=== PATIENT | female | born 1965 | race Caucasian/White ===

== ENCOUNTER 2022-06-28 15:13 | Emergency (ER) | payer OTHER, SELFPAY ==
[2022-06-28 15:16] VITALS: BP 150/60; PULSE 134; RESP 20; TEMP 37.9; O2SAT 93; BMI 51.1
--- NOTE | 2022-06-28 15:27 | CT_ITS ---
EXAM: CT ANGIOGRAPHY CHEST WITHOUT AND WITH INTRAVENOUS CONTRAST CLINICAL INDICATION: sob, + COVID TECHNIQUE: Helically acquired angiography images were obtained of the chest without and with intravenous contrast. This CT exam was performed using one or more of the following dose reduction techniques: automated exposure control, adjustment of the mA and/or kV according to patient size, and/or use of iterative reconstruction technique. This report was created using [employer] ([employer]) report generation technology. MIP reconstructed images were created and reviewed. CONTRAST: IV 100mL [id number]-[id number] RADIATION DOSE: CTDIvol = 23.97 mGy, DLP = 731.56 mGy-cm COMPARISON: None. FINDINGS: PULMONARY ARTERIES: Unremarkable. No demonstrated pulmonary embolism or arterial dissection. AORTA: There is atherosclerotic calcification of the aortic arch with tortuosity and elongation of the aortic arch and descending thoracic aorta. Normal in caliber. No evidence of dissection. GREAT VESSELS OF AORTIC ARCH: See above. LUNGS AND PLEURAL SPACES: Unremarkable. No mass. No consolidation or edema. No pleural effusion or thickening. No pneumothorax. HEART: Unremarkable. Heart size is normal. No pericardial effusion. No signs of right heart strain, ratio of right ventricle to left ventricle measures less than 1. MEDIASTINUM: Unremarkable. No mediastinal or hilar adenopathy. Esophagus is unremarkable. No hiatal hernia. THYROID: Unremarkable. No thyroid lesions. BONES/JOINTS: There are degenerative changes of the shoulders. There are multi-level degenerative changes of the thoracic spine. No suspicious lytic or blastic abnormality. ADRENALS: Left adrenal adenoma. CT/CTA Chest W/WO Contrast IMPRESSION: No demonstrated pulmonary embolism or arterial dissection. Electronically Signed: Marcelino Evans MD at 17:43 EST ,
--- NOTE | 2022-06-28 15:27 | EKG12_ITS ---
Test Reason : LEONID/NOEMY Blood Pressure : / mmHG Vent. Rate : 124 BPM Atrial Rate : 000 BPM P-R Int : 000 ms QRS Dur : 100 ms QT Int : 438 ms P-R-T Axes : 000 063 044 degrees QTc Int : 629 ms Sinus tachycardia Low voltage QRS Poor R wave progression Nonspecific ST and T wave abnormality Confirmed by RYAN NINA, ARACELIS ([id number]), video tape editor KELIN CHUNG ([id number]) on 06/30/2022 2:37:31 PM Referred By: Confirmed By:ARACELIS DAVIS MD
--- NOTE | 2022-06-28 15:28 | ED.VIS.DYS ---
HPI History of Present Illness Chief Complaint: Shortness of Breath Informant: patient Onset/Context/Timing Onset: Days (3 days) Context: gradual Timing: Intermittent Narrative Narrative: Patient presents secondary to increasing shortness of breath over the past 3 days. She states she will get intermittent times where she has a very hard time catching her breath. She denies chest pain. Yesterday she started feeling dizzy so she presents today for evaluation. She was noted to have a low-grade fever today but she did had not realize she been running a fever at home. She does not have significant cough. [facility] Medical History Body aches Chronic neck and back pain Hypertension Incontinence Knee pain Liver disease Shoulder pain Type 2 diabetes mellitus Home Medications metformin 500 mg tablet 500 mg PO BID 04/18/21 [History Last Taken Unknown] tizanidine 4 mg capsule 4 mg PO QHS PRN . 04/18/21 [History Last Taken Unknown] atorvastatin 20 mg tablet 20 mg PO DAILY 06/28/22 [History Last Taken Unknown] cholestyramine-aspartame 4 gram oral powder (Cholestyramine Light) 4 g PO TID 06/28/22 [History Last Taken Unknown] doxepin 10 mg capsule 10 mg PO QHS 06/28/22 [History Last Taken Unknown] duloxetine 60 mg capsule,delayed release (Cymbalta) 60 mg PO DAILY 06/28/22 [History Last Taken Unknown] glimepiride 1 mg tablet 1 mg PO DAILY 06/28/22 [History Last Taken Unknown] lisinopril 10 mg-hydrochlorothiazide 12.5 mg tablet 1 tab PO DAILY 06/28/22 [History Last Taken Unknown] nirmatrelvir 300 mg (150 mg x2)-ritonavir 100 mg tablet,dose pack(EUA) (Paxlovid) See Rx Instructions PO .COMPLEX #30 tabs 06/28/22 [Rx Last Taken Unknown] ursodiol 300 mg capsule 600 mg PO TID 06/28/22 [History Last Taken Unknown] Allergy/AdvReac Type Severity Reaction Status Date / Time codeine Allergy Mild unknown Verified 06/28/22 15:19 Surgical History History of hysterectomy Social History Smoking Status: Never smoker alcohol intake: never ROS ROS ED Constitutional Constitutional ED: Reports fever(s); Denies chills Eyes Eyes: Denies change in vision or discharge from eye(s) ENT ENT ED: Denies discharge from eye(s), rhinorrhea or sore throat Cardiovascular Cardiovascular: Denies chest pain Respiratory/Chest Respiratory/Chest: Reports cough and dyspnea Gastrointestinal Gastrointestinal: Denies abdominal pain, diarrhea, nausea or vomiting Genitourinary Genitourinary ED: Denies dysuria Musculoskeletal Musculoskeletal: Reports other Details: Left foot in walking boot x2 months. ; Denies back pain Integumentary Denies Abrasions or rash Neurologic Neurologic: Denies headache(s) or weakness Psychiatric Psychiatric: Denies anxiety or depression Allergic/Immunologic Allergic/Immunologic ED: Denies lip swelling or urticaria EXAM Physical Exam Const Vital Signs: 06/28/22 15:16 06/28/22 15:52 06/28/22 17:23 Temperature 100.3 F H Temperature Source Temporal Pulse Rate 134 H 74 Respiratory Rate 20 H 16 Respiratory Effort Normal Respiratory Depth Normal Respiratory Pattern Normal Blood Pressure 150/60 H 121/66 H Blood Pressure Mean 90 84 Pulse Ox 93 97 Oxygen Delivery Method Room Air Room Air Positive well nourished and well developed General Appearance ED: well developed HEENT Reports normocephalic and head/scalp atraumatic Eyes PERRL and EOMs intact bilaterally Neck supple Chest Wall inspection of chest normal and palpation of chest normal Resp normal respiratory effort and clear to auscultation bilaterally Cardio regular rhythm Rate: tachycardic GI normal to inspection, nondistended, normoactive bowel sounds Palpation: soft Back/Spine no CVA tenderness Extremity Extremity Narrative: Left foot in walking boot. Neuro oriented x3 and no sensory deficits noted Sensorium / Orientation: alert Psych Mood & Affect: anxious Skin no rashes or lesions noted MDM MDM MDM Narrative Medical decision making narrative: Patient was given ibuprofen for fever. Patient placed on media monitor. EKG obtained to evaluate for cardiac dysrhythmia. Lab work obtained to evaluate for leukocytosis, anemia, electrolyte derangement. Troponin obtained to evaluate for cardiac ischemia/injury. CTA of the chest obtained given her tachypnea, tachycardia, limited mobility with foot in walking boot to rule out blood clot. Swab for COVID and influenza obtained. Lab Data Attestation: I reviewed the patient's lab results. Labs: Laboratory Results - last 24 hr 06/28/22 06/28/22 15:31 15:31 WBC 10.0 RBC 4.59 Hgb 12.8 Hct 39.0 MCV 85.0 MCH 27.9 MCHC 32.8 RDW Std Deviation 44.8 H RDW Coeff of Kimberlee 14.6 Plt Count 295 MPV 9.6 Immature Gran % (Auto) 0.600 Neut % (Auto) 79.3 H Lymph % (Auto) 10.8 L [place] % (Auto) 7.8 Eos % (Auto) 1.0 Baso % (Auto) 0.5 Absolute Neuts (auto) 7.9 H Absolute Lymphs (auto) 1.08 Nucleated RBC % 0 Sodium 136 Potassium 3.9 Chloride 102 Carbon Dioxide 23.0 Anion Gap 11 BUN 11 Creatinine 1.06 H Estim Creat Clear Calc 49.96 Est GFR (MDRD) Af Amer 68 Est GFR (MDRD) Non-Af 57 L BUN/Creatinine Ratio 10.4 Glucose 185 H Calcium 9.2 Total Bilirubin 0.50 Direct Bilirubin 0.15 AST 41 H ALT 35 Alkaline Phosphatase 73 Troponin I High Sens 9 Total Protein 7.6 Albumin 3.4 Globulin 4.2 Radiography Diagnostic Testing: Clinical Impression(s) from Imaging Studies Chest CTA 06/28/22 15:27 IMPRESSION: No demonstrated pulmonary embolism or arterial dissection. Electronically Signed: Marcelino Evans MD at 17:43 EST Reading Location ID and State: [facility] / [place] , Service support , EKG Initial EKG: Attestation: I personally reviewed and interpreted this EKG as follows: Interpretation: Sinus Tachycardia (Sinus tach at 124 with no acute ischemia.) Differential Diagnosis Chest pain/SOB: pulmonary embolism Reason(s) PE less likely: Positive for not hypoxic and Other (Negative CTA chest), ACS ACS: Positive for no evidence of ACS based on cardiac biomarkers and EKG without ischemia, pneumothorax Reason(s) pneumothorax less likely: Positive for bilateral breath sounds and Other (No pneumothorax noted on CTA chest.) and pneumonia Reason(s) pneumonia less likely: Positive for no elevation in WBC count and other (No infiltrate noted on CTA chest.) Treatment and Re-Evaluation :: COVID test does return positive. Influenza is negative. CBC reveals normal white count. Chemistry studies reveal no acute abnormalities. Glucose is 185. LFTs normal. Troponin is normal at 9. EKG is sinus tachycardia with no acute ischemia. CTA of the chest reveals no evidence of infiltrate, fluid overload, PE, or dissection. At this time patient's heart rate is 109. O2 sats remained in the mid 90s. We discussed her COVID diagnosis and possibility of treatment with Paxlovid. She does agree to this. She knows that she needs to hold her statin while she is taking this medication. Return instructions provided. Discharge Plan Triage Chief Complaint: Shortness of Breath ED Provider: Gianna Hankins Dx/Rx/DC Orders Clinical Impression: COVID-19 Instructions: Coronavirus Disease 2019 (COVID-19): Overview, Coronavirus Disease 2019 (COVID-19): Caring for Yourself or Others Prescriptions: New Paxlovid (EUA) 300 mg (150 mg x 2)-100 mg tablets,dose pack See Rx Instructions .ROUTE .COMPLEX Qty: 30 0RF Rx Instructions: take TWO 150 mg tablets of nirmatrelvir with ONE 100 mg tablet of ritonavir twice daily for 5 days No Action metformin 500 mg tablet 500 mg PO BID tizanidine 4 mg capsule 4 mg PO QHS PRN (Reason: .) atorvastatin 20 mg tablet 20 mg PO DAILY doxepin 10 mg Capsule 10 mg PO QHS glimepiride 1 mg Tablet 1 mg PO DAILY ursodiol 300 mg Capsule 600 mg PO TID lisinopril-hydrochlorothiazide 10-12.5 mg Tablet 1 tab PO DAILY duloxetine [Cymbalta] 60 mg Capsule,Delayed Release(Dr/Ec) 60 mg PO DAILY Cholestyramine Light 4 gram Powder 4 g PO TID Rx Instructions: administer w/meal; avoid other meds within 1hr before or 4-6hr after dose Primary Care Provider: Freddy Pugh Referrals: Freddy Pugh MD [Primary Care Provider] - 1-2 Weeks Activity Restrictions/Additional Instructions: As discussed, please hold your atorvastatin while you are taking Paxlovid. Disposition Disposition: Home, Self Care
[2022-06-28] MEDS: Ibuprofen 600 MG Tablet PO (15:42)
[2022-06-28 15:43] LABS: Absolute Lymphocyte Count 1.08 X10^3/uL (0.83-4.51); Absolute Neutrophil Count 7.9 X10^3/uL (2.0-7.7); Basophil# 0.05 X10^3/uL; Basophil% 0.5 % (0-1); Hemoglobin 12.8 g/dL (12.0-15.0); Lymphocyte # 1.08 X10^3/ul (0.83-4.51); Lymphocyte % 10.8 % (19-41); Mean Corp Hgb Conc 32.8 g/dL (32-36); Mean Corpuscular Hgb 27.9 pg (27.0-32.0); Mean Platelet Vol. 9.6 fl (6.2-12.0); Monocyte# 0.78 X10^3/uL; Monocyte% 7.8 % (0-10); NRBC Flagged by Analyzer 0 % (0-5); Neutrophil # 7.89 X10^3/uL (2.7-7.7); Neutrophil % 79.3 % (47-70); Platelet Count 295 K/mm3 (150-450); RBC Distribution Width CV 14.6 % (11.6-14.6); RBC Distribution Width SD 44.8 fl (35.1-43.9); Red Blood Count 4.59 M/mm3 (4.2-5.4)
[2022-06-28 15:52] VITALS: O2SAT 96
[2022-06-28 16:02] LABS: AST(SGOT) 41 U/L (15-37); Alanine Aminotransfer ALT/SGPT 35 U/L (13-56); Albumin, Serum 3.4 g/dL (3.2-5.0); Alkaline Phosphatase 73 U/L (45-117); Anion Gap 11 (5-15); BUN 11 mg/dL (7-18); BUN/Creat Ratio 10.4 RATIO (10-20); Bilirubin, Direct 0.15 mg/dL (0.00-0.30); Calcium,Total 9.2 mg/dL (8.5-10.1); Chloride 102 mmol/L (98-107); Creatinine, Serum 1.06 mg/dL (0.55-1.02); EST Glomerular Filtration Rate 57 mL/min (>60); Est Glom Filt Rate - Afr Amer 68 mL/min (>60); Estimated Creatinine Clearance 49.96 ml/min; Globulin 4.2 g/dL (2.2-4.2); Glucose 185 mg/dL (74-106); Potassium 3.9 mmol/L (3.5-5.1); Protein, Total 7.6 g/dL (6.4-8.2); Sodium Level 136 mmol/L (136-145); Troponin-I HS 9 pg/mL (3.0-54.0)
[2022-06-28 17:23] VITALS: BP 121/66; PULSE 74; RESP 16; O2SAT 97
[2022-06-28 19:10] VITALS: RESP 110; O2SAT 94
== END 2022-06-28 19:11 | disposition home or self-care (01) ==
PROVIDERS: Emergency Provider Emergency Medicine; PCP Family Medicine; Visit Provider Emergency Medicine
DX: U07.1 COVID-19 (principal); E11.9 Type 2 diabetes mellitus without complications; I10 Essential (primary) hypertension; Z79.84 Long term (current) use of oral hypoglycemic drugs; Z79.899 Other long term (current) drug therapy
CPT/HCPCS: 71275; 80048; 80076; 84484; 85025; 87428; 93005; 99284; Q9967; A4216

== ENCOUNTER 2022-06-29 19:10 | Emergency (ER) | payer OTHER, SELFPAY ==
[2022-06-29 19:13] VITALS: BP 148/72; PULSE 117; RESP 18; TEMP 37.1; O2SAT 95
--- NOTE | 2022-06-29 19:31 | ED.VIS.DYS ---
HPI History of Present Illness Chief Complaint: Shortness of Breath Detail of Chief Complaint: Shortness of breath Informant: patient Narrative Narrative: Patient presents the emergency department complaint of feeling short of breath today. Patient tells me she was seen in the emergency department for same last evening and was diagnosed with COVID-19. Patient states that she also had a CTA of the chest which was negative for PE or dissection. Patient's had headaches off and on and fever today up to 103. She feels like she cannot get a good breath. Her O2 sat has not dropped down below 91% at home but she was concerned because it had not gotten over 95%. Patient was started on Paxlovid last evening. Patient states that her family made her come in and get evaluated. Patient was not sure if she was just freaking out. Patient has had the COVID-vaccine. She does have history of some anxiety and had been on Cymbalta but has not had it for the last 3 weeks. Patient was on it from pain management. [facility] Medical History Body aches Chronic neck and back pain Hypertension Incontinence Knee pain Liver disease Shoulder pain Type 2 diabetes mellitus Home Medications metformin 500 mg tablet 500 mg PO BID 04/18/21 [History Last Taken Unknown] tizanidine 4 mg capsule 4 mg PO QHS PRN . 04/18/21 [History Last Taken Unknown] atorvastatin 20 mg tablet 20 mg PO DAILY 06/28/22 [History Last Taken Unknown] cholestyramine-aspartame 4 gram oral powder (Cholestyramine Light) 4 g PO TID 06/28/22 [History Last Taken Unknown] doxepin 10 mg capsule 10 mg PO QHS 06/28/22 [History Last Taken Unknown] duloxetine 60 mg capsule,delayed release (Cymbalta) 60 mg PO DAILY 06/28/22 [History Last Taken Unknown] glimepiride 1 mg tablet 1 mg PO DAILY 06/28/22 [History Last Taken Unknown] lisinopril 10 mg-hydrochlorothiazide 12.5 mg tablet 1 tab PO DAILY 06/28/22 [History Last Taken Unknown] nirmatrelvir 300 mg (150 mg x2)-ritonavir 100 mg tablet,dose pack(EUA) (Paxlovid) See Rx Instructions PO .COMPLEX #30 tabs 06/28/22 [Rx Last Taken Unknown] ursodiol 300 mg capsule 600 mg PO TID 06/28/22 [History Last Taken Unknown] albuterol sulfate 90 mcg/actuation aerosol inhaler (ProAir HFA) 2 puff inhalation Q6H PRN shortness of breath or wheezing #6.7 grams 06/29/22 [Rx Last Taken Unknown] lorazepam 1 mg tablet (Ativan) 1 mg PO TID PRN anxiety #10 tabs 06/29/22 [Rx Last Taken Unknown] Allergy/AdvReac Type Severity Reaction Status Date / Time codeine Allergy Mild unknown Verified 06/29/22 19:17 Surgical History History of hysterectomy Social History Smoking Status: Never smoker alcohol intake: never ROS ROS ED Review of Systems ROS Unobtainable: other Constitutional Constitutional ED: Reports fever(s) and lethargy; Denies chills, sweats or weight loss Eyes Eyes: Denies blurry vision, change in vision or diplopia ENT ENT ED: Denies rhinorrhea or sore throat Cardiovascular Cardiovascular: Reports racing heartbeat; Denies chest pain or orthopnea Respiratory/Chest Respiratory/Chest: Reports cough, dyspnea and dyspnea on exertion; Denies orthopnea or sputum Gastrointestinal Gastrointestinal: Denies abdominal pain, diarrhea, nausea or vomiting Genitourinary Genitourinary ED: Denies dysuria, hematuria or urinary frequency Musculoskeletal Musculoskeletal: Reports myalgias; Denies arthralgias, back pain or neck pain Integumentary Denies abscess, Abrasions or rash Neurologic Neurologic: Denies headache(s) or weakness Psychiatric Psychiatric: Denies anxiety, depression or suicidal thoughts Endocrine Endocrinology: Denies polydipsia, polyphagia or polyuria Hematologic/Lymphatic Hematologic/Lymphatic: Denies easy bleeding, easy bruising or lymphadenopathy Allergic/Immunologic Allergic/Immunologic ED: Denies mouth swelling, tongue swelling or urticaria EXAM Physical Exam Const Vital Signs: 06/29/22 19:13 06/29/22 19:22 06/29/22 19:55 Temperature 98.8 F Temperature Source Oral Pulse Rate 117 H 107 H Respiratory Rate 18 18 Respiratory Effort Normal Non-Labored Respiratory Depth Normal Respiratory Pattern Normal Normal Blood Pressure 148/72 H Blood Pressure Mean 97 Pulse Ox 95 Oxygen Delivery Method Room Air Positive well nourished and well developed General Appearance ED: well developed and NAD HEENT Reports TM's clear and moist mucous membranes normocephalic and atraumatic; Negative for trauma or tenderness Tympanic Membrane ED: Yes TM's clear Eyes PERRL and EOMs intact bilaterally General Eye ED: Negative for pale conjunctiva or scleral icterus Neck no lymphadenopathy, supple and no JVD General: Negative for tenderness Chest Wall inspection of chest normal and palpation of chest normal Chest Narrative: Good aeration bilaterally. No accessory muscle use or retractions. No significant wheezing noted. No rales noted. Chest: Negative for tenderness Resp normal respiratory effort and clear to auscultation bilaterally Effort and Inspection: Negative for respiratory distress or pain with movement Auscultation: Negative for rhonchi, wheezes or diminished lung sounds Cardio regular rhythm, S1 normal heart sound, S2 normal heart sound and no murmurs; Negative for regular rate Rate: tachycardic Peripheral Pulses: pulses 2+ throughout GI normal to inspection, nondistended, normoactive bowel sounds, soft to palpation, non-tender, non-distended and no masses Back/Spine no CVA tenderness and no thoracic nor lumbar tenderness Extremity normal to inspection General Extremety ED: Negative for edema General Extremity: Negative for edema Neuro oriented x3, CN's II-XII intact bilaterally, no sensory deficits noted and gait normal Sensorium / Orientation: awake, alert, oriented to person, oriented to place and oriented to time Motor Exam: strength 5/5 throughout and strength abnormal Psych mental status grossly normal Skin no rashes or lesions noted and no wounds MDM MDM MDM Narrative Medical decision making narrative: Patient presents with dyspnea 1 day after being diagnosed with COVID-19 and having a CTA of her chest as well as cardiac work-up all of which were unremarkable. On arrival she is with an O2 sat of 95% on room air. Lung exams unremarkable. I did give her a DuoNeb aerosol to see if symptomatically this would help and really did not seem to make much difference. She did receive 1 mg of Ativan p.o. and this did seem to improve her symptomatology. I do suspect a component of anxiety. I do not feel any further work-up is indicated at this time. Patient will be discharged to home and instructed continue with her Paxlovid and she will monitor her O2 saturations at home. I will give her some as needed Ativan as needed for anxiety. Discharge Plan Triage Chief Complaint: Shortness of Breath ED Provider: Keiko Lyn Dx/Rx/DC Orders Clinical Impression: COVID-19, Anxiety, Acute dyspnea Instructions: Caring for Someone Who Has COVID-19, ED Anxiety Reaction, ED Dyspnea Prescriptions: New lorazepam [Ativan] 1 mg tablet 1 mg PO TID PRN (Reason: anxiety) Qty: 10 0RF albuterol sulfate [ProAir HFA] 90 mcg/actuation HFA aerosol inhaler 2 puff inhalation Q6H PRN (Reason: shortness of breath or wheezing) Qty: 6.7 0RF No Action metformin 500 mg tablet 500 mg PO BID tizanidine 4 mg capsule 4 mg PO QHS PRN (Reason: .) atorvastatin 20 mg tablet 20 mg PO DAILY doxepin 10 mg Capsule 10 mg PO QHS glimepiride 1 mg Tablet 1 mg PO DAILY ursodiol 300 mg Capsule 600 mg PO TID lisinopril-hydrochlorothiazide 10-12.5 mg Tablet 1 tab PO DAILY duloxetine [Cymbalta] 60 mg Capsule,Delayed Release(Dr/Ec) 60 mg PO DAILY Cholestyramine Light 4 gram Powder 4 g PO TID Rx Instructions: administer w/meal; avoid other meds within 1hr before or 4-6hr after dose Paxlovid (EUA) 300 mg (150 mg x 2)-100 mg tablets,dose pack See Rx Instructions .ROUTE .COMPLEX Qty: 30 0RF Rx Instructions: take TWO 150 mg tablets of nirmatrelvir with ONE 100 mg tablet of ritonavir twice daily for 5 days Primary Care Provider: Freddy Pugh Referrals: Freddy Pugh MD [Primary Care Provider] - Disposition Disposition: Home, Self Care
[2022-06-29] MEDS: LORazepam 1 MG Tablet PO (19:36)
[2022-06-29 19:55] VITALS: PULSE 107; RESP 18
[2022-06-29] MEDS: Ipratropium/Albuterol Sulfate 3 ML AMPUL.NEB INHALATION (19:55)
== END 2022-06-29 20:26 | disposition home or self-care (01) ==
PROVIDERS: Emergency Provider Emergency Medicine; PCP Family Medicine; Visit Provider Emergency Medicine
DX: U07.1 COVID-19 (principal); F41.9 Anxiety disorder, unspecified; R06.00 Dyspnea, unspecified
CPT/HCPCS: 94640; 99282

== ENCOUNTER 2023-06-05 16:20 | Emergency (ER) | payer BC, SELFPAY ==
[2023-06-05 16:21] VITALS: BP 143/70; PULSE 128; RESP 20; TEMP 39.6; O2SAT 92
--- NOTE | 2023-06-05 16:57 | EDS_ITS ---
<Statement entered by Gianna Hankins MD - 06/05/23 18:23> I have personally performed a face to face assessment of the patient and have reviewed the JIMMY Note. Patient presents secondary to cough and fever. She reports having a cough for the past 2 weeks and has developed fever and nausea over the past 24 hours. She went to urgent care where her temperature was reported to be 105 and she was sent to the emergency room. Patient sitting upright in bed no acute distress. She appears ill but is nontoxic appearing and is in no acute distress. Head and neck examination largely unremarkable. Heart is tachycardic and regular. Lung sounds are clear with good air movement throughout. Abdomen is soft and nontender. Patient given Tylenol and Zofran. Chest x-ray per my interpretation reveals chronic changes with no obvious large infiltrates. Radiology interpretation is reviewed and they do feel she has patchy bilateral infiltrates. Swab for COVID, influenza, and RSV is negative. Patient be treated with a course of doxycycline and return instructions given. HPI History of Present Illness Chief Complaint: Cough Narrative Narrative: 58-year-old female with PMH of HTN, HLD, DM2 states she has had a cough for few weeks but yesterday developed fever, chills, and nausea and vomiting. Today she is nauseated still. She went to urgent care and was told her temp was 105F and sent to the ED for evaluation. She has not taken any antipyretics since early this morning. She does not smoke. No chest pain or shortness of breath. Her whole family has had a cough for a couple weeks. [facility] Medical History Body aches Chronic neck and back pain Hypertension Incontinence Knee pain Liver disease Shoulder pain Type 2 diabetes mellitus Home Medications metformin 500 mg tablet 500 mg PO BID 04/18/21 [History Last Taken Unknown] tizanidine 4 mg capsule 4 mg PO QHS PRN . 04/18/21 [History Last Taken Unknown] atorvastatin 20 mg tablet 20 mg PO DAILY 06/28/22 [History Last Taken Unknown] cholestyramine-aspartame 4 gram oral powder (Cholestyramine Light) 4 g PO TID 0 06/28/22 [History Last Taken Unknown] doxepin 10 mg capsule 10 mg PO QHS 06/28/22 [History Last Taken Unknown] duloxetine 60 mg capsule,delayed release (Cymbalta) 60 mg PO DAILY 06/28/22 [History Last Taken Unknown] glimepiride 1 mg tablet 1 mg PO DAILY 06/28/22 [History Last Taken Unknown] lisinopril 10 mg-hydrochlorothiazide 12.5 mg tablet 1 tab PO DAILY 06/28/22 [History Last Taken Unknown] nirmatrelvir 300 mg (150 mg x2)-ritonavir 100 mg tablet,dose pack (Paxlovid) See Rx Instructions PO .COMPLEX #30 tabs 06/28/22 [Rx Last Taken Unknown] ursodiol 300 mg capsule 600 mg PO TID 06/28/22 [History Last Taken Unknown] albuterol sulfate 90 mcg/actuation aerosol inhaler (ProAir HFA) 2 puff inhalation Q6H PRN shortness of breath or wheezing #6.7 grams 06/29/22 [Rx Last Taken Unknown] lorazepam 1 mg tablet (Ativan) 1 mg PO TID PRN anxiety #10 tabs 06/29/22 [Rx Last Taken Unknown] doxycycline hyclate 100 mg tablet 100 mg PO BID 7 days #14 tabs 06/05/23 [Rx Last Taken Unknown] ondansetron 4 mg disintegrating tablet 4 mg PO Q6H PRN nausea and vomiting #12 tabs 06/05/23 [Rx Last Taken Unknown] Allergy/AdvReac Type Severity Reaction Status Date / Time codeine Allergy Mild unknown Verified 06/05/23 16:21 Surgical History History of hysterectomy Social History Smoking Status: Never smoker alcohol intake: never ROS ROS ED ROS Narrative Constitutional: Positive for fever, chills, malaise. CVS: Negative for chest pain. Respiratory: Positive for cough. Negative for shortness of breath. GI: Positive for nausea, vomiting. Negative for abdominal pain, nausea, vomiting. Neuro: Negative for headache. EXAM Physical Exam Narrative Exam Narrative: CONST: Patient sitting in no acute distress. EYES: Normal inspection. NECK: Normal inspection. RESP: No respiratory distress, CTAB. CVS: Tachycardic with regular rhythm, no murmur, no gallop. ABD: Soft and nontender, no guarding or rebound, nondistended. SKIN: Color normal, no rash, warm, dry, intact. EXTREMITIES: Normal appearance, no pedal edema. NEURO: Oriented x4. PSYCH: Normal affect. Const Vital Signs: 06/05/23 16:21 06/05/23 17:30 06/05/23 17:31 Temperature 103.2 F H Temperature Source Oral Pulse Rate 128 H 124 H Respiratory Rate 20 H 22 H Blood Pressure 143/70 H 126/68 H Blood Pressure Mean 94 87 Pulse Ox 92 91 Oxygen Delivery Method Room Air Room Air Room Air 06/05/23 17:36 Temperature 103.2 F H Temperature Source Oral Pulse Rate 124 H Respiratory Rate 22 H Blood Pressure 126/68 H Blood Pressure Mean 87 Pulse Ox 91 Oxygen Delivery Method Room Air MDM MDM MDM Narrative Medical decision making narrative: History gathered from: Patient and spouse Patient has had a few weeks of cough and more recent development of fever, chills, nausea and vomiting. She appears well and nontoxic. She is febrile at 103.2F, HR 128, otherwise normal vital signs. Other than tachycardia her exam is benign and lungs are clear to auscultation. Swab for COVID/flu/RSV is negative. CXR shows bilateral patchy infiltrates. With her symptoms she will be treated for pneumonia with doxycycline. First dose of antibiotic plus Tylenol and Motrin were given here. Fever and heart rate are coming down to 110. Patient comfortable discharge home and symptomatic care and return precautions were discussed. Differential: Viral syndrome, pneumonia Radiography Diagnostic Testing: Clinical Impression(s) from Imaging Studies Chest X-Ray 06/05/23 17:00 IMPRESSION: Patchy bilateral infiltrates of unknown chronicity. In the appropriate clinical setting findings may represent infection including atypical or viral pneumonia. Electronically Signed: Conrad Schumacher MD at 17:16 EST , ED attending interpretation of 2 view chest x-ray shows normal heart size and no evidence of large infiltrate. However radiology notes patchy bilateral infiltrates. Discharge Plan Triage Chief Complaint: Cough ED Midlevel Provider: Kinga Lawson ED Provider: Gianna Hankins Dx/Rx/DC Orders Clinical Impression: Pneumonia Instructions: ED Pneumonia (Adult) Prescriptions: New doxycycline hyclate 100 mg tablet 100 mg PO BID 7 Days Qty: 14 0RF ondansetron 4 mg tablet,disintegrating 4 mg PO Q6H PRN (Reason: nausea and vomiting) Qty: 12 0RF No Action metformin 500 mg tablet 500 mg PO BID tizanidine 4 mg capsule 4 mg PO QHS PRN (Reason: .) atorvastatin 20 mg tablet 20 mg PO DAILY doxepin 10 mg Capsule 10 mg PO QHS glimepiride 1 mg Tablet 1 mg PO DAILY ursodiol 300 mg Capsule 600 mg PO TID lisinopril-hydrochlorothiazide 10-12.5 mg Tablet 1 tab PO DAILY duloxetine [Cymbalta] 60 mg Capsule,Delayed Release(Dr/Ec) 60 mg PO DAILY Cholestyramine Light 4 gram Powder 4 g PO TID Rx Instructions: administer w/meal; avoid other meds within 1hr before or 4-6hr after dose Paxlovid 300 mg (150 mg x 2)-100 mg tablets,dose pack See Rx Instructions .ROUTE .COMPLEX Qty: 30 0RF Rx Instructions: take TWO 150 mg tablets of nirmatrelvir with ONE 100 mg tablet of ritonavir twice daily for 5 days lorazepam [Ativan] 1 mg tablet 1 mg PO TID PRN (Reason: anxiety) Qty: 10 0RF albuterol sulfate [ProAir HFA] 90 mcg/actuation HFA aerosol inhaler 2 puff inhalation Q6H PRN (Reason: shortness of breath or wheezing) Qty: 6.7 0RF Primary Care Provider: Freddy Pugh Referrals: Freddy Pugh MD [Primary Care Provider] - Activity Restrictions/Additional Instructions: Rest, drink fluids, take Tylenol every 6 hours as needed for fever and take the prescribed antibiotic for pneumonia
--- NOTE | 2023-06-05 17:00 | RAD_ITS ---
INDICATION: cough EXAMINATION/TECHNIQUE: X-RAY - XR Chest 2 Views COMPARISON: None. FINDINGS: LINES/DEVICES: None. LUNGS: Patchy bilateral airspace opacities without consolidation or pleural effusion. MEDIASTINUM AND CARDIOVASCULAR STRUCTURES: Cardiac silhouette not enlarged. Central airways and mediastinal contour are unremarkable. BONES AND SOFT TISSUES: No acute findings. RAD/Chest PA and Lateral IMPRESSION: Patchy bilateral infiltrates of unknown chronicity. In the appropriate clinical setting findings may represent infection including atypical or viral pneumonia. Electronically Signed: Conrad Schumacher MD at 17:16 EST ,
[2023-06-05] MEDS: Acetaminophen 500 MG Tablet 1000 MG PO (17:05)
[2023-06-05] MEDS: Ondansetron ODT 4 MG Tablet PO (17:05)
[2023-06-05] MEDS: Doxycycline 100 MG CAPSULE PO (17:28)
[2023-06-05 17:30] VITALS: O2SAT 92
[2023-06-05 17:31] VITALS: BP 126/68; PULSE 124; RESP 22; O2SAT 91
[2023-06-05 17:36] VITALS: BP 126/68; PULSE 124; RESP 22; TEMP 39.6; O2SAT 91
[2023-06-05] MEDS: Ibuprofen 600 MG Tablet PO (17:40)
--- OUTSIDE RECORDS SUMMARY | 2023-06-05 17:54 | XMS RPT_ITS | CCD ---
Author Name Unknown Address [address] [facility] [address] [place] [address] Organization [facility] Care Team Providers Care Naval Inspector Name Role Phone Margi Serrano MD Primary Care Provider MARGI SERRANO Referring Unavailable MARGI SERRANO Primary Care Unavailable PROVIDER, UNKNOWN Referring Unavailable MARGI SERRANO Primary Care Unavailable PROVIDER, UNKNOWN Referring Unavailable MARGI SERRANO Primary Care Unavailable Margi Serrano MD Primary Care Provider Margi Serrano MD Primary Care Provider [phone] LUIS DE LEON Referring Unavailable MARGI SERRANO Primary Care Unavailable LUIS VELASQUEZ Attending Unavailable MARGI SERRANO Primary Care Unavailable CHERELLE, SHAHRIAR Attending Unavailable MARGI SERRANO Primary Care Unavailable EXTEN, FELICE L Referring Unavailable CHERELLE, SHAHRIAR Attending Unavailable MARGI SERRANO Primary Care Unavailable EXTEN, FELICE L Referring Unavailable CHERELLE, SHAHRIAR Attending Unavailable MARGI SERRANO Primary Care Unavailable EXTEN, FELICE L Referring Unavailable CHERELLE, SHAHRIAR Attending Unavailable BRIGIDTAMARGI Haddad R Primary Care Unavailable EXTEN, FELICE L Referring Unavailable KONTAMARGI Haddad Primary Care Unavailable EXTEN, FELICE L Referring Unavailable CHERELLE, SHAHRIAR Attending Unavailable BRIGIDTAMARGI Haddad Primary Care Unavailable EXTEN, FELICE L Referring Unavailable CHERELLE, SHAHRIAR Attending Unavailable BRIGIDTAMARGI Haddad R Primary Care Unavailable EXTEN, FELICE L Referring Unavailable CHERELLE, SHAHRIAR Attending Unavailable BRIGIDTAMARGI Haddad R Primary Care Unavailable EXTEN, FELICE L Referring Unavailable KONTAK, MARGI R Primary Care Unavailable EXTEN, FELICE L Referring Unavailable CHERELLE, SHAHRIAR Attending Unavailable BRIGIDTAMARGI Haddad R Primary Care Unavailable EXTEN, FELICE L Referring Unavailable FAVORITE, ZULEYKA Attending Unavailable MARGI SERRANO R Primary Care Unavailable LUIS DE LEON Referring Unavailable BRIGIDTAKMARGI R Primary Care Unavailable FAVORITE, ZULEYKA Attending Unavailable BRIGIDTAKMARGI R Primary Care Unavailable KONTAK, MARGI R Primary Care Unavailable BRIGIDTAK, MARGI R Primary Care Unavailable BRIGIDTAMARGI Haddad R Primary Care Unavailable BRIGIDSHARLENEKMARGI R Attending Unavailable BRIGIDTAK, MARGI R Primary Care Unavailable FAVORITE, ZULEYKA Referring Unavailable BRIGIDTAK, MARGI R Primary Care Unavailable Allergies Allergy Classification Reported Allergen(s) Allergy Type Date of Onset Reaction(s) Facility (20 sources) Aspirin / oxyCODONE Hydrochloride / oxyCODONE terephthalate; Translations: [OXYCODONE [id number]] Drug Allergy 0 Vomiting [facility] Work Phone: (20 sources) Codeine; Translations: [CODEINE] Drug Allergy 0 Other: See Comments [facility] (20 sources) Niacin; Translations: [NIACIN] Drug Allergy 1 Intolerance [facility] Work Phone: Medications Current Medications Medication Drug Class(es) Dates Sig (Normalized) Sig (Original) CPAP/BIPAP/OTHER (20 sources) Start: 01-15-2022 End: 06-01-2049 CPAP/BIPAP/OTHER Type .CPAPSettings into a note to see current settings/supplies/DM E information. 1 Each 0 01/15/2022 06/01/2049 Active Completed/Discontinued Medications Medication Drug Class(es) Dates Sig (Normalized) Sig (Original) atorvastatin 20 mg oral tablet (20 sources) HMG-CoA Reductase Inhibitor Start: 04-17-2023 take 1 tablet by mouth once daily atorvastatin (LIPITOR) 20 mg tablet Indications: Mixed hyperlipidemia Take 1 tablet by mouth once daily. 90 tablet 0 04/17/2023 Active Problems Active Problems Problem Classification Problem Date Documented Date Episodic/Chronic Cardiac dysrhythmias (1 source) Tachycardia; Translations: [Tachycardia, unspecified] Episodic Diabetes mellitus without complication (20 sources) Type 2 diabetes mellitus without complication; Translations: [Type 2 diabetes mellitus without complications] Onset: 08-07-2011 Chronic Disorders of lipid metabolism (20 sources) Mixed hyperlipidemia; Translations: [Mixed hyperlipidemia] Onset: 09-18-2009 Chronic Essential hypertension (20 sources) Essential hypertension; Translations: [Essential (primary) hypertension] Onset: 09-18-2009 Chronic Hepatitis (3 sources) Nonalcoholic steatohepatitis; Translations: [Nonalcoholic steatohepatitis (BELLE)] Onset: 01-09-2023 01-09-2023 Chronic Immunizations and screening for infectious disease (3 sources) Encounter for immunization; Translations: [Other specified conditions influencing health status] Episodic Joint disorders and dislocations; trauma-related (20 sources) Joint derangement; Translations: [Other internal derangements of unspecified knee] Onset: 02-25-2010 02-25-2010 Chronic Osteoarthritis (20 sources) Osteoarthritis; Translations: [Osteoarthrosis, unspecified whether generalized or localized, lower leg] Onset: 02-25-2010 02-25-2010 Chronic Other connective tissue disease (1 source) Pain of left heel; Translations: [Pain in left foot] Episodic Other infections; including parasitic (1 source) Personal history of other infectious and parasitic diseases; Translations: [History of COVID-19] Episodic Other liver diseases (20 sources) Primary biliary cholangitis; Translations: [Primary biliary cirrhosis] Onset: 11-22-2020 11-22-2020 Chronic Other liver diseases (20 sources) Chronic liver disease; Translations: [Liver disease, unspecified] Onset: 11-22-2020 11-22-2020 Chronic Other liver diseases (3 sources) Hepatic fibrosis; Translations: [Hepatic fibrosis] Onset: 12-09-2021 01-09-2023 Chronic Other liver diseases (1 source) Primary biliary cirrhosis; Translations: [Primary biliary cholangitis (HCC)] Onset: 11-22-2020 Chronic Other lower respiratory disease (1 source) Dyspnea; Translations: [Shortness of breath] Episodic Other nutritional; endocrine; and metabolic disorders (20 sources) Body mass index 40+ - severely obese; Translations: [Morbid (severe) obesity due to excess calories] Onset: 04-23-2017 04-23-2017 Chronic Other screening for suspected conditions (not mental disorders or infectious disease) (3 sources) Patient encounter status; Translations: [Encounter for screening mammogram for malignant neoplasm of breast] Episodic Residual codes; unclassified (20 sources) Obstructive sleep apnea syndrome; Translations: [Obstructive sleep apnea (adult) (pediatric)] Onset: 09-18-2009 03-23-2019 Chronic Residual codes; unclassified (1 source) Obstructive sleep apnea (adult) (pediatric); Translations: [SIA (obstructive sleep apnea)] Onset: 01-12-2022 Chronic Past or Other Problems Problem Classification Problem Date Documented Da te Episodic/Chronic Other connective tissue disease (20 sources) Left achilles tendonitis; Translations: [Achilles tendinitis, left leg] Onset: 05-08-2022 Episodic Spondylosis; intervertebral disc disorders; other back problems (20 sources) Low back pain co-occurrent with neuralgia of left sciatic nerve; Translations: [Lumbago with sciatica, left side] Onset: 02-03-2015 02-03-2015 Episodic Results Test Name Value Interpretation Reference Range Facil ity Vital Signs Date Time Vital Sign Value Performing Clinician Zenaida galeana 07-23-2022 09:14-0400 Body weight 128.82 kg Luis Velasquez APRN.WORKERS COMPENSATION COORDINATOR Work Phone: [facility] 07-23-2022 09:14-0400 Diastolic blood pressure 68 mm[Hg] Luis Velasquez APRN.WORKERS COMPENSATION COORDINATOR Work Phone: [facility] 07-23-2022 09:14-0400 Heart rate 91 /min Luis Velasquez APRN.WORKERS COMPENSATION COORDINATOR Work Phone: [facility] 07-23-2022 09:14-0400 Systolic blood pressure 136 mm[Hg] Luis Velasquez APRN.WORKERS COMPENSATION COORDINATOR Work Phone: [facility] 06-28-2022 14:17-0500 Heart rate 128 /min Whitney Mack PIE CUTTER.WORKERS COMPENSATION COORDINATOR Work Phone: [facility] 06-28-2022 14:17-0500 SaO2% (BldA) [Mass fraction] 94 % Whitney Mack PIE CUTTER.WORKERS COMPENSATION COORDINATOR Work Phone: [facility] 06-28-2022 14:08-0500 Body temperature 102.7 [degF] Whitney Mack PIE CUTTER.WORKERS COMPENSATION COORDINATOR Work Phone: [facility] 06-28-2022 14:08-0500 Body weight 147.87 kg Whitney Browneye PIE CUTTER.WORKERS COMPENSATION COORDINATOR Work Phone: [facility] 06-28-2022 14:08-0500 Diastolic blood pressure 59 mm[Hg] Whitney Browneye PIE CUTTER.WORKERS COMPENSATION COORDINATOR Work Phone: [facility] 06-28-2022 14:08-0500 Systolic blood pressure 131 mm[Hg] Whitney Browneye PIE CUTTER.WORKERS COMPENSATION COORDINATOR Work Phone: [facility] 04-30-2022 14:36-0500 Body temperature 99.19 [degF] Roni Ge MD Work Phone: [facility] 04-30-2022 14:36-0500 Body weight 133.81 kg Roni Ge MD Work Phone: [facility] 04-30-2022 14:36-0500 Diastolic blood pressure 58 mm[Hg] Roni Ge MD Work Phone: [facility] 04-30-2022 14:36-0500 Heart rate 113 /min Roni Ge MD Work Phone: [facility] 04-30-2022 14:36-0500 Respiratory rate 20 /min Roni Ge MD Work Phone: [facility] 04-30-2022 14:36-0500 SaO2% (BldA) [Mass fraction] 97 % Roni Ge MD Work Phone: [facility] 04-30-2022 14:36-0500 Systolic blood pressure 144 mm[Hg] Roni Ge MD Work Phone: [facility] 12-11-2021 16:47-0400 Body height 162.6 cm Margi Serrano MD Work Phone: [facility] 12-11-2021 16:47-0400 Body weight 131.54 kg Margi Serrano MD Work Phone: [facility] 12-11-2021 16:47-0400 Diastolic blood pressure 67 mm[Hg] Margi Serrano MD Work Phone: [facility] 12-11-2021 16:47-0400 Heart rate 101 /min Margi Serrano MD Work Phone: [facility] 12-11-2021 16:47-0400 SaO2% (BldA) [Mass fraction] 94 % Margi Serrano MD Work Phone: [facility] 12-11-2021 16:47-0400 Systolic blood pressure 143 mm[Hg] Margi Serrano MD Work Phone: [facility] Encounters Encounter Date Encounter Type Care Provider Facility Start: 06-02-2023 Refill Deepthi Motley PIE CUTTER.WORKERS COMPENSATION COORDINATOR Work Phone: Family Practice Procedures Date Procedure Procedure Detail Performing Clinician Start: 01-09-2023 Us abdominal real ti me w/image limited Luis De Leon MD Work Phone: Start: 07-03-2021 Adult depression scr eening assessment Luis Velasquez PIE CUTTER.WORKERS COMPENSATION COORDINATOR Work Phone: Start: 05-25-2020 Mammography Luis orozco PIE CUTTER.WORKERS COMPENSATION COORDINATOR Work Phone: Start: 05-11-2015 Colonoscopy Luis orozco PIE CUTTER.WORKERS COMPENSATION COORDINATOR Work Phone: Plan of Treatment Date Care Activity Detail Author Start: 07-04-2031 Urine microalbumin profile [facility] Start: 05-11-2025 Colonoscopy COLONOSCOPY [facility] Start: 05-11-2025 COLORECTAL CANCER SCREENING COLORECTAL CANCER SCREENING [facility] Start: 05-11-2025 Screening for malignant neoplasm of colon [facility] Start: 04-21-2024 Annual PCP Team Chronic Disease Visit Annual PCP Team Chronic Disease Visit [facility] Start: 04-21-2024 BP Controlled (<130/80) BP Controlled (<130/80) [facility] in Start: 04-21-2024 Diabetic foot examination Diabetic Foot Exam [facility] Start: 04-03-2024 BP Controlled (<130/80) BP Controlled (<130/80) [facility] Start: 04-03-2024 Hepatitis B surface antibody level LDL Cholesterol [facility] Start: 01-31-2024 BP Controlled (<130/80) BP Controlled (<130/80) [facility] Start: 10-03-2023 Hemoglobin A1c measurement HbA1C [facility] Start: 10-03-2023 Hemoglobin A1c/Hemoglobin.total in Blood HbA1C [facility] Start: 08-02-2023 BP CONTROLLED (<130/80) BP CONTROLLED (<130/80) [facility] Start: 07-24-2023 ANNUAL PCP TEAM CHRONIC DISEASE VISIT ANNUAL PCP TEAM CHRONIC DISEASE VISIT [facility] Start: 04-27-2023 Depression Assessment Depression Assessment [facility] Start: 03-13-2023 End: 06-12-2023 ALBUMIN/CREAT RATIO RND UR ALBUMIN/CREAT RATIO RND UR Lab Routine Controlled type 2 diabetes mellitus without complication, without long-term current use of insulin (HCC) Expected: 03/13/2023, Expires: 06/12/2023 [facility] Work Phone: Immunizations Immunization Date Immunization Notes Care Provider Leta kiran 02-21-2022 COVID-19 booster vaccine, age 12+ yr, bivalent (Appointedd) Luis Ghislaine PIE CUTTER.WORKERS COMPENSATION COORDINATOR Work Phone: [facility] 02-21-2022 influenza, injectabl e, quadrivalent, contains preservative Luis Ghislaine PIE CUTTER.WORKERS COMPENSATION COORDINATOR Work Phone: [facility] 02-21-2022 influenza virus vacc ine, unspecified formulation Luis Ghislaine PIE CUTTER.WORKERS COMPENSATION COORDINATOR Work Phone: [facility] 12-11-2021 pneumococcal Conjuga te, unspecified formulation Margi Serrano MD Work Phone: [facility] Work Phone: 12-11-2021 pneumococcal (PCV20) vaccine, 20 valent (PREVNAR 20) Margi Serrano MD Work Phone: [facility] 12-11-2021 zoster vaccine recombinant Margi Serrano MD Work Phone: [facility] 07-03-2021 tetanus and diphther ia toxoids, adsorbed, preservative free, for adult use (2 Lf of tetanus toxoid and 2 Lf of diphtheria toxoid) Luis Ghislaine PIE CUTTER.WORKERS COMPENSATION COORDINATOR Work Phone: [facility] 07-03-2021 zoster vaccine recombinant Luis Ghislaine PIE CUTTER.WORKERS COMPENSATION COORDINATOR Work Phone: [facility] 05-17-2021 COVID-19 vaccine, ag e 12+ yr (PFIZER-BIONTECH - PURPLE TOP) Luis Ghislaine PIE CUTTER.WORKERS COMPENSATION COORDINATOR Work Phone: [facility] 10-05-2020 hepatitis A vaccine, adult dosage Luis Ghislaine PIE CUTTER.WORKERS COMPENSATION COORDINATOR Work Phone: [facility] 10-05-2020 hepatitis B vaccine, adult dosage Luis Ghislaine PIE CUTTER.WORKERS COMPENSATION COORDINATOR Work Phone: [facility] 09-07-2020 COVID-19 vaccine, fu ll dose (MODERNA) Luis Ghislaine PIE CUTTER.WORKERS COMPENSATION COORDINATOR Work Phone: [facility] 08-10-2020 COVID-19 vaccine, fu ll dose (MODERNA) Luis Ghislaine PIE CUTTER.WORKERS COMPENSATION COORDINATOR Work Phone: [facility] 06-08-2020 hepatitis B vaccine, adult dosage Luis Ghislaine PIE CUTTER.WORKERS COMPENSATION COORDINATOR Work Phone: [facility] 05-04-2020 hepatitis A vaccine, adult dosage Luis Ghislaine PIE CUTTER.WORKERS COMPENSATION COORDINATOR Work Phone: [facility] 05-04-2020 hepatitis B vaccine, adult dosage Luis Ghislaine PIE CUTTER.WORKERS COMPENSATION COORDINATOR Work Phone: [facility] 05-04-2020 influenza, injectabl e, quadrivalent, contains preservative Luis Ghislaine PIE CUTTER.WORKERS COMPENSATION COORDINATOR Work Phone: [facility] 03-23-2019 influenza, injectabl e, quadrivalent, contains preservative Luis Ghislaine PIE CUTTER.WORKERS COMPENSATION COORDINATOR Work Phone: [facility] 03-19-2018 influenza, injectabl e, quadrivalent, contains preservative Luis Ghislaine PIE CUTTER.WORKERS COMPENSATION COORDINATOR Work Phone: [facility] 02-03-2015 influenza, injectabl e, quadrivalent, contains preservative Luis Velasquez APRN.WORKERS COMPENSATION COORDINATOR Work Phone: [facility] 02-03-2015 influenza, seasonal, injectable Luis Velasquez APRN.WORKERS COMPENSATION COORDINATOR Work Phone: [facility] 12-24-2011 pneumococcal polysaccharide vaccine, 23 valent Luis Velasquez APRN.WORKERS COMPENSATION COORDINATOR Work Phone: [facility] 02-11-2010 influenza virus vacc ine, unspecified formulation Luis Velasquez APRN.WORKERS COMPENSATION COORDINATOR Work Phone: [facility] 07-05-2008 tetanus toxoid, redu jessenia diphtheria toxoid, and acellular pertussis vaccine, adsorbed Luis Velasquez APRN.WORKERS COMPENSATION COORDINATOR Work Phone: [facility] Work Phone: Payers Date Payer Category Payer Private Health Insurance JERARDO FLORES [facility] [id number] 2020-Present [phone] [address] [place] [address] Open Access [id number] 2020 Private Health Insurance JERARDO FLORES OA [id number] 2020-Present [phone] [address] [place] [address] Open Access [id number] 2020 Private Health Insurance [id number] Social History Date Type Detail Facility Start: 02-06-2016 End: 12-11-2021 Tobacco smoking status NHIS Ex-smoker [facility] History of tobacco use Cigarette Smoker [facility] Start: 07-05-2021 End: 04-21-2023 Alcohol intake Current drinker of alcohol (finding) [facility] Start: 05-02-2020 History SDOH Alcohol Frequency 1 [facility] Start: 09-18-2009 History SDOH Alcohol Comment rarely [facility] Start: 05-02-2020 History SDOH Social Connections Phone 5 [facility] Start: 05-02-2020 History SDOH Social Connections Living 3 [facility] Start: 05-02-2020 History SDOH Financial 4 [facility] Start: 05-02-2020 History SDOH Transport Med 2 [facility] Start: 05-01-2020 Education 12 [facility] Start: 02-11-2010 End: 12-11-2021 Tobacco Comment Quit in 1996 [facility] Start: 1965 Sex Assigned At Not on file [facility] Start: 11-01-2021 End: 01-12-2022 Exposure to SARS-CoV-2 (event) Not sure [facility] History of tobacco use Current smoker [facility] Start: 02-06-2016 End: 12-11-2021 Tobacco use and exposure Smokeless tobacco non-user [facility] Start: 08-01-2022 End: 01-30-2023 History of Social function [facility] Work Phone: Start: 08-01-2022 End: 01-30-2023 Tobacco use panel [facility] Work Phone: Adult Depression Scr eening Assessment 0 [facility] Work Phone: Do you belong to any clubs or organizations such as mormonism groups, unions, fraternal or athletic groups, or school groups? Yes [facility] Are you now , , , , never or living with a partner? [facility] How often to you hav e a drink containing alcohol? Never [facility] How many standard dr inks containing alcohol do you have on a typical day? 1 or 2 [facility] How hard is it for y ou to pay for the very basics like food, housing, medical care, and heating Not very hard [facility] Do you feel stress - tense, restless, nervous, or anxious, or unable to sleep at night because your mind is troubled all the time - these days [OSQ] To some extent [facility] (I/We) worried wheth er (my/our) food would run out before (I/we) got money to buy more. Never true [facility] In the past 12 month s, was there a time when you were not able to pay the mortgage or rent on time? No [facility] Medical Equipment Procedure Code Equipment Code Equipment Origin al Text Equipment Identifier Dates Start: 03-19-2018 Clinical Notes 01-30-2010 to 06-02-2023 Telephone Encounter - Margi Serrano MD - 06/02/2023 3:39 PM ESTTelephone Encounter - Kinga Yoon LPN - 06/02/2023 3:22 PM ESTTelephone Encounter - Tika Morejon - 04/10/2023 3:16 PM EST Note Date & Type Note Facility 06-02-2023 Miscellaneous Notes The following approved medication requests have been transmitted electronically. Requested Prescriptions Signed Prescriptions Disp Refills DULoxetine (CYMBALTA) 60 mg capsule 30 capsule 5 Sig: take 1 capsule by mouth every day Authorizing Provider: MARGI SERRANO MD Pharmacy verified in [place] Patient has been identified by name and date of : Yes Patient aware RX will be sent to pharmacy. No need to notify patient. Pharmacy phones for refill(s): Requested Prescriptions Pending Prescriptions Disp Refills DULoxetine (CYMBALTA) 60 mg capsule [Pharmacy Med Name: DULoxetine HCl Oral Capsule Delayed Release Particles 60 MG] 30 capsule 0 Sig: take 1 capsule by mouth every day Date of last office visit : 04/21/2023 Date of next office visit : 10/21/2023 Last 2 Encounter Wt Readings: Date: Wt: 04/21/2023 127 kg (279 lb 15.8 oz) 01/30/2023 136.1 kg (300 lb) Not applicable Please advise. Kinga Yoon LPN documented in this encounter [facility] 05-13-2023 Note Patient Outreach (IN TMMN) AARONVALENTÍN ([id number]) 1965 F Date Time Provider Department 05/13/23 MARGI SERRANO During your visit today, we recorded the following information about you: Allergies As of Date: 05/13/2023 Noted Allergy Reaction CODEINE 09/18/2009 14 - Other: See Comments Comments: childhood NIASPAN (NIACIN) 04/04/2011 5 - Intolerance PERCODAN (OXYCODONE HCL-OXYCODONE*09/18/2009 11 - Vomiting Date Reviewed: 04/21/2023 Reviewed by: Saadia Rodriguez LPN - Fully Assessed Visit Diagnosis:Encounter for screening mammogram for breast cancer [Z12.31] Order(s):[facility] SCREENING [[id number]] Order #: [id number] FUTURE Prescriptions as of 05/18/2023 - Blood-Glucose Meter (ONETOUCH ULTRA2 METER) Check glucose daily and as needed. - Lancing Device with Lancets Check glucose daily and as needed. - metFORMIN (GLUCOPHAGE) 500 mg tablet Take 2 tablets by mouth two times a day with meals. - atorvastatin (LIPITOR) 20 mg tablet Take 1 tablet by mouth once daily. - DULoxetine (CYMBALTA) 60 mg capsule take 1 capsule by mouth every day - glimepiride (AMARYL) 1 mg tablet TAKE 1 TABLET BY MOUTH EVERY MORNING WITH BREAKFAST - lisinopril-hydroCHLOROthiazide (ZESTORETIC) 10-12.5 mg per tablet take 1 tablet by mouth once daily - doxepin capsule 10 mg Take 1 capsule by mouth daily at bedtime. - tiZANidine (ZANAFLEX) 4 mg tablet take 1 tablet by mouth twice a day if needed - ursodiol (ACTIGALL) 300 mg capsule take 2 capsules by mouth three times a day - CPAP/BIPAP/OTHER Type .CPAPSettings into a note to see current settings/supplies/DME information. - cholestyramine (QUESTRAN) 4 gram packet Take 1 Packet by mouth three times daily with meals. Take by mouth as directed. - Lancets lancets Test blood sugar(s) 1 times daily. Dx: Type 2 DM - Controlled E11.9 Insulin: No - CPAP autoPAP 10-20 cmH2O, mask, tubing, filters, heated humidity, lifetime supplies. Please fax 30 day compliance download to [phone] ([place]). Dx: SIA. Old machine broke. Meds Comments as of 02/03/2015: Patient currently using Plexus. Problem List As Of Date 05/13/2023 Noted Resolved Obstructive sleep apnea on CPAP [G47.33] 09/18/2009 Essential hypertension [I10] 09/18/2009 Mixed hyperlipidemia [E78.2] 09/18/2009 Pre-diabetes [R73.03] 01/30/2010 12/24/2011 Osteoarth NOS-l/leg [VNR5406] 02/25/2010 Other joint derangement, not elsewhere classifi*02/25/2010 Chondromalacia patella 04/16/2010 Diabetes mellitus type 2, controlled, without c*08/07/2011 Bilateral low back pain with left-sided sciatic*02/03/2015 Obesity, Class III, BMI >= 40 (morbid obesity) *04/23/2017 Primary biliary cholangitis (HCC) [K74.3] 11/22/2020 Chronic liver disease [K76.9] 11/22/2020 Tendonitis, Achilles, left [M76.62] 05/08/2022 Encounter Status:Closed by Cloud[employer], PRODUSER on 05/18/23 [facility] 04-21-2023 Note HNO ID: [id number] Author: Margi Serrano MD Service: ? Author Type: Physician Type: Progress Notes Filed: 04/21/2023 11:05 AM Note Text: CHIEF COMPLAINT Patient presents with: medication appt HISTORY OF PRESENT ILLNESS Valentín Walker is a 58 year old female who presents here today for medication review and refills. I last saw this patient on 02/21/2022. BELLE - Currently part of a clinical study - Currently managed on ursodial 300 mg capsule, 2 capsules TID - Continues to follow with GI Diabetes - Currently managed on glimepiride 1 mg tablet once daily with breakfast and metformin 500 mg tablet BID with meals - A1c is 7.5% as of 04/03/2023 - Has not been checking BS at home - Last 3 Encounter Wt Readings: Date: Wt: 04/21/2023 127 kg (279 lb 15.8 oz) 01/30/2023 136.1 kg (300 lb) 08/01/2022 128.8 kg (284 lb) Ears - Endorses a buzzing sound/tinnitus Back Pain - Stopped injections - States that the injections were beneficial in the beginning - Have not been as effective as of late Health Maintenance Due for Hep A Vaccine (3 of 3- Hep A Twinrix risk 3- dose series) Due for Diabetic Foot Exam Due for Dilated Retinal Exam Due for Influenza Vaccine Due for Covid-19 Vaccine (2022- season) Labs reviewed. Past medical history, appointments, medications, allergies reviewed. REVIEW OF SYSTEMS General: Feels well, +weight loss, no fevers or chills. HEENT: No sinus congestion, earache, sore throat. +tinnitus Cardiac: No chest pain, palpitations Resp: No cough, wheeze, shortness of breath GI: No reflux symptoms, food intolerance, bowel changes. : No urinary frequency, dysuria. MS: No pain or joint complaints. PAST MEDICAL HISTORY PAST MEDICAL HISTORY Diagnosis Date Diabetes (HCC) Eczema Mixed hyperlipidemia Hyperlipidemia BELLE (nonalcoholic steatohepatitis) Obstructive sleep apnea Primary biliary cholangitis (HCC) Snoring Unspecified essential hypertension Essential hypertension PHYSICAL EXAMINATION BP 129/76 Pulse 81 Ht 165.1 cm (5' 5 ) Wt 127 kg (279 lb 15.8 oz) SpO2 98% BMI 46.59 kg/m? General: Alert, well developed, well nourished, no distress, pleasant and cooperative. Morbidly obese. Heart: Regular rate and rhythm. Normal S1 and S2. No murmurs, rubs, or gallops. Lungs: Clear to auscultation bilaterally. No respiratory distress. No wheezes, rales, or rhonchi. Abdomen: Soft, non-tender, no distention. Extremities: Feet/ankles without edema, posterior tibial pulses full and symmetrical. Feet:Shoes and socks removed, normal distal pulses, sensitive to 10 gm monofilament, and Skin and naile appear normal (slightly callused skin. Data Reviewed Component Latest Ref Rng AND Units 04/03/2023 WBC 3.70 - 11.00 k/uL 6.99 RBC 3.90 - 5.20 m/uL 4.64 Hemoglobin 11.5 - 15.5 g/dL 12.9 Hematocrit 36.0 - 46.0 % 39.4 MCV 80.0 - 100.0 fL 84.9 MCH 26.0 - 34.0 pg 27.8 MCHC 30.5 - 36.0 g/dL 32.7 RDW-CV 11.5 - 15.0 % 14.5 Platelet Count 150 - 400 k/uL 251 MPV 9.0 - 12.7 fL 9.7 Absolute nRBC <0.01 k/uL <0.01 Glucose 74 - 99 mg/dL 162 (H) BUN 7 - 21 mg/dL 10 Creatinine 0.58 - 0.96 mg/dL 0.70 Sodium 136 - 144 mmol/L 139 Potassium 3.7 - 5.1 mmol/L 3.9 Chloride 97 - 105 mmol/L 103 CO2 22 - 30 mmol/L 22 Anion Gap 9 - 18 mmol/L 14 Calcium 8.5 - 10.2 mg/dL 9.5 eGFR >=60 mL/min/1.73mA? 100 Total Cholesterol, Nonfasting <200 mg/dL 120 Triglycerides, Nonfasting <150 mg/dL 190 (H) HDL Cholesterol, Nonfasting >39 mg/dL 24 (L) LDL Cholesterol, Nonfasting <100 mg/dL 58 Non HDL Cholesterol, Nonfasting <130 mg/dL 96 VLDL Cholesterol, Nonfasting <30 mg/dL 38 (H) Total Chol/HDL Ratio, Nonfasting <5.10 mg/dL 5.00 LDL/HDL Ratio, Nonfasting <2.54 mg/dL 2.42 Albumin 3.9 - 4.9 g/dL 3.9 Bilirubin, Total 0.2 - 1.3 mg/dL 0.5 Bilirubin, Conjug <0.2 mg/dL <0.2 Alkaline Phosphatase 34 - 123 U/L 79 AST 13 - 35 U/L 29 ALT 7 - 38 U/L 20 Protein, Total 6.3 - 8.0 g/dL 7.5 Hemoglobin A1C 4.3 - 5.6 % 7.5 (H) Estimated Average Glucose mg/dL 169 PT Sec 9.7 - 13.0 sec 11.0 PT INR 0.9 - 1.3 1.0 Uric Acid 2.5 - 6.6 mg/dL 8.6 (H) GGT 6 - 46 U/L 34 Insulin 3.0 - 25.0 mU/L 50.8 (H) Assessment/Plan (E11.9) Controlled type 2 diabetes mellitus without complication, without long-term current use of insulin (HCC) (primary encounter diagnosis) Comment: A1c is 7.5% as of 04/03/2023. Will increase metformin. Plan: Blood-Glucose Meter (ONETOUCH ULTRA2 METER), blood sugar diagnostic (ONETOUCH ULTRA TEST) test strip, Lancing Device with Lancets, Increase metFORMIN (GLUCOPHAGE) 500 mg tablet to 2 tablets BID with meals (I10) Essential hypertension Comment: Well controlled Plan: Continue current regimen (E78.2) Mixed hyperlipidemia Comment: Well managed on statin therapy Plan: Continue current regimen (E66.01) Obesity, Class III, BMI >= 40 (morbid obesity) E66.01 Comment: Pt has been able to lose weight. Has (more content not included)... [facility] 04-10-2023 Miscellaneous Notes Bethelhart sent Please inform patient that they are due for OV and assist in scheduling with PCP team. Thanks. Last appointment: 07/23/22 Next appointment: n/a Pharmacy verified in [place]. Refill(s) requested: Requested Prescriptions Pending Prescriptions Disp Refills DULoxetine (CYMBALTA) 60 mg capsule [Pharmacy Med Name: DULoxetine HCl Oral Capsule Delayed Release Particles 60 MG] 30 capsule 0 Sig: take 1 capsule by mouth every day glimepiride (AMARYL) 1 mg tablet [Pharmacy Med Name: Glimepiride Oral Tablet 1 MG] 30 tablet 0 Sig: TAKE 1 TABLET BY MOUTH EVERY MORNING WITH BREAKFAST Order(s) pended. Please advise. Amisha Trevino MA, PRICING CLERK documented in this encounter [facility] 04-07-2023 Miscellaneous Notes Pharmacy verified in [place] Patient has been identified by name and date of : Yes Patient aware RX will be sent to pharmacy. No need to notify patient. Pharmacy phones for refill(s): Requested Prescriptions Pending Prescriptions Disp Refills lisinopril-hydroCHLOROthiazide (ZESTORETIC) 10-12.5 mg per tablet [Pharmacy Med Name: LISINOPRIL-HCTZ 10-12.5 MG TAB] 90 tablet 0 Sig: take 1 tablet by mouth once daily Date of last office visit : 07/23/2022 Date of next office visit : Visit date not found Last 2 Encounter Wt Readings: Date: Wt: 01/30/2023 136.1 kg (300 lb) 08/01/2022 128.8 kg (284 lb) Blood Pressure: BUN (mg/dL) Date Value 04/03/2023 10 02/01/2021 9 Creatinine (mg/dL) Date Value 04/03/2023 0.70 02/01/2021 0.64 Sodium (mmol/L) Date Value 04/03/2023 139 02/01/2021 140 Potassium (mmol/L) Date Value 04/03/2023 3.9 02/01/2021 4.1 Last 1 Encounter BP Readings: Date: BP: 04/03/2023 129/68 Please advise. Kinga Yoon LPN documented in this encounter [facility] 04-06-2023 Miscellaneous Notes The following approved medication requests have been transmitted electronically. Requested Prescriptions Signed Prescriptions Disp Refills atorvastatin (LIPITOR) 20 mg tablet 90 tablet 0 Sig: take 1 tablet by mouth once daily Authorizing Provider: MARGI SERRANO MD Pharmacy verified in [place] Patient has been identified by name and date of : Yes Patient aware RX will be sent to pharmacy. No need to notify patient. Pharmacy phones for refill(s): Requested Prescriptions Pending Prescriptions Disp Refills atorvastatin (LIPITOR) 20 mg tablet [Pharmacy Med Name: ATORVASTATIN 20 MG TABLET] 90 tablet 0 Sig: take 1 tablet by mouth once daily Date of last office visit : 07/23/2022 Date of next office visit : Visit date not found Last 2 Encounter Wt Readings: Date: Wt: 01/30/2023 136.1 kg (300 lb) 08/01/2022 128.8 kg (284 lb) Cholesterol: Triglyceride (mg/dL) Date Value 02/12/2022 158 02/01/2021 147 Triglycerides, Nonfasting (mg/dL) Date Value 04/03/2023 190 HDL Cholesterol (mg/dL) Date Value 02/12/2022 31 02/01/2021 28 HDL Cholesterol, Nonfasting (mg/dL) Date Value 04/03/2023 24 LDL Cholesterol (mg/dL) Date Value 02/01/2021 68 LDL Cholesterol, Nonfasting (mg/dL) Date Value 04/03/2023 58 ALT (U/L) Date Value 04/03/2023 20 11/12/2020 26 Non HDL Cholesterol, Nonfasting (mg/dL) Date Value 04/03/2023 96 Non HDL Cholesterol (mg/dL) Date Value 02/12/2022 92 02/01/2021 97 Please advise. Kinga Yoon LPN documented in this encounter [facility] 04-03-2023 Note HNO ID: [id number] Author: KINGA VALDES RN Service: ? Author Type: Registered Nurse Type: Progress Notes Filed: 05/05/2023 14:45 Note Text: IRB# [id number] Nonalcoholic Fatty Liver Disease (NAFLD) Database 3 PI: Dr Dickinson Research Coordinator: Alec Sosa ext [phone] Visit #: [id number] Subject ID [id number] All Vital Signs will be found in Additional Documentation below Progress Notes in the Encounter CRU to pull tubes Time Point Procedures Comments/Signature Baseline/Follow-up Visit Subject continues to give consent for trial. Confirm Subject is fasting: Date: 04/02/23 Time: 1999 1.Height: 168.4 cm 2.Height: 168.4 cm (Within 1.3 cm) 1. Weight: 126.0 kg 2. Weight: 125.8 kg (Within .91 kg) 1. Waist: 142.9 cm 2. Waist: 143 cm 3. (Within 10.2 cm) 1. Hip: 144.4 cm 2. Hip: 144.6 cm (Within 10.2 cm) Vital Signs collected Time:08 Scan patient wristband for all VS Signature: Kinga Valdes RN Blood Draw Orders checked in [facility] and appropriate tubes set up for lab draw and Beaker labels printed and confirmed with coordinator Blood Draw Time: 09 Butterfly used in left antecubital area. Blood drawn with vacutainer and syringe as needed and labs drawn per protocol. Butterfly removed after blood draw and site secured with sterile gauze. Patient tolerated procedure well. Tubes possibly needed: Send to [facility] (1) 2.7ml NaCit (1) 3.5ml gold (2) 3ml lith hep PST (1) 2ml EDTA (1) 3ml EDTA (1) 4ml [facility] NaFlouride [facility] (1) 10ml EDTA (baseline visit only;get bar-coded tube from lab) (1) 10ml NaHep (4) 5ml gold SST Signature: Kinga Valdes RN Coordination Subject must remain NPO until after Fibroscan Fibroscan and questionnaires done by Alec Medication Review: done Study MD visit Signature: Kinga Valdes RN Discharge D/C patient home Signature: Kinga Valdes RN [facility] 03-13-2023 Miscellaneous Notes The following approved medication requests have been transmitted electronically. Requested Prescriptions Signed Prescriptions Disp Refills DULoxetine (CYMBALTA) 60 mg capsule 30 capsule 0 Sig: take 1 capsule by mouth every day Authorizing Provider: MARGI SERRANO MD Last appointment: 07/23/22 Next appointment: n/a Pharmacy verified in [place]. Refill(s) requested: Requested Prescriptions Pending Prescriptions Disp Refills DULoxetine (CYMBALTA) 60 mg capsule [Pharmacy Med Name: DULoxetine HCl Oral Capsule Delayed Release Particles 60 MG] 30 capsule 0 Sig: take 1 capsule by mouth every day Order(s) pended. Please advise. Sam Barcenas CMA documented in this encounter [facility] 03-13-2023 Miscellaneous Notes Due for lab/ follow up appt. 1 fill only Lab ordered (fasting blood and urine) Refill on 03/13/23 COMP METABOLIC PANEL LIPID PANEL BASIC HGB A1C ALBUMIN/CREAT RATIO RND UR . The following approved medication requests have been transmitted electronically. Requested Prescriptions Signed Prescriptions Disp Refills glimepiride (AMARYL) 1 mg tablet 30 tablet 0 Sig: TAKE 1 TABLET BY MOUTH IN THE MORNING WITH BREAKFAST Authorizing Provider: MARGI SERRANO MD Last appointment: 07/23/22 Next appointment: n/a Pharmacy verified in [place]. Refill(s) requested: Requested Prescriptions Pending Prescriptions Disp Refills glimepiride (AMARYL) 1 mg tablet [Pharmacy Med Name: Glimepiride Oral Tablet 1 MG] 30 tablet 0 Sig: TAKE 1 TABLET BY MOUTH IN THE MORNING WITH BREAKFAST Order(s) pended. Please advise. Sam Barcenas CMA documented in this encounter [facility] 03-02-2023 Miscellaneous Notes Pharmacy requesting refills as follows via ERAR: CALVIN: 07/23/22 NOV: not scheduled Requested Prescriptions Pending Prescriptions Disp Refills glimepiride (AMARYL) 1 mg tablet [Pharmacy Med Name: Glimepiride Oral Tablet 1 MG] 30 tablet 0 Sig: TAKE 1 TABLET BY MOUTH IN THE MORNING WITH BREAKFAST Please review and advise. Fernanda Grover documented in this encounter [facility] 02-23-2023 Miscellaneous Notes Pharmacy faxed requesting the following refill. Requested Prescriptions Pending Prescriptions Disp Refills doxepin capsule 10 mg 90 capsule 1 Sig: Take 1 capsule by mouth daily at bedtime. Patient's Last Office Visit: 01/30/2023 by Nora Patient Phone numbers: [phone] (home) Request is for script(s) to be escript to pharmacy. Anitha Choi Firepot Operator And Tender documented in this encounter [facility] 02-10-2023 Miscellaneous Notes Called the patient and left vm about NAFLD Database 3 study (IRB#[id number]). Requested the patient to call back at the given number. Alec Sosa Real Property Appraiser documented in this encounter [facility] 01-30-2023 Note HNO ID: [id number] Author: Zuleyka Craft APRN.WORKERS COMPENSATION COORDINATOR Service: ? Author Type: Nurse Practitioner Type: Progress Notes Filed: 01/31/2023 5:10 PM Note Text: ASSESSMENT AND PLAN: BELLE/PBC: -- stable; no new issues -- LFT's, imaging are stable -- unfortunately, no progress with wt loss -- continue ursodiol -- pt asking about bone density testing; will d/w Dr De Leon -- diarrhea may be a side effect of her urosodiol. Can continue to take imodium prn US stable; next labs and imaging in June 2023. -- US is ordered. HPI: Ms. Walker is a 58 year old female with hx SIA, BELLE/PBC, Type II DM, who presents for routine follow up of liver disease. Last seen by me 08/01/2022: ASSESSMENT AND PLAN BELLE/PBC -- has declined bariatric surgery; has not followed with foxing closer or made any progress in wt loss -- has number now to talk with bariatrics about newer wt loss medications; encouraged her to call -- next US due 12/2022> already ordered. 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 Med related -- does not seem excessive -- helped by prn imodium See also previous visit with Dr De Leon 07/05/21 TODAY: No new medical issues Has not talked with anyone yet about wt loss medications. C/o some pain which comes and goes; in right middle abdomen Occasional itching; takes some questran if she really needs it Still having some diarrhea Stopped the metformin which didn't make any difference. Taking glimepiride and now a lower dose of metformin. Bm's vary; usually 3-4 daily Rarely has nocturnal bm No bloody stools Consistency varies from watery to mushy. Will occasionally have a formed stool. The worst part is the urgency Still takes some imodium occasionally if she is going to be away from the house for awhile It helps with the urgency, but doesn't really take away the loose stool Denies bloating or nausea LFT's stable Last colonoscopy 2016; 10 year recall. Diverticulosis. Last EGD 2018: normal Review of Systems: PAIN ASSESSMENT: Negative for pain, history of chronic pain, or current treatment for a chronic pain condition. GENERAL: No weight loss, malaise or fevers. RESPIRATORY: Negative for cough, hemoptysis, wheezing, COPD, dyspnea or shortness of breath CARDIOVASCULAR: Negative for chest pain, leg swelling, hypertension, CHF or palpitations GI: See HPI : No history of dysuria, frequency or incontinence PSYCH: Negative for sleep disturbance, mood disorder and recent psychosocial stressors. NEURO: No history of headaches, syncope, paralysis, seizures or tremors The remainder of the review of systems is negative. Where do you currently reside? Independently Are you taking any blood thinners? No PHYSICAL EXAM: BP 119/65 Pulse 73 Resp 20 Ht 5' 5 (1.65m) Wt 300 lb (136.1kg) BMI 49.92 kg/(m2). General appearance: Morbidly obese, well appearing, alert, in no acute distress, and well-hydrated, well nourished Skin: Skin color, texture, turgor normal, no suspicious rashes or lesions Neck: Supple, no adenopathy; thyroid symmetric, normal size, no bruits Lungs: lungs clear to auscultation no wheezing or rhonchi Heart: RRR without murmur, gallop, or rubs. No ectopy Abdomen: Normal abdominal exam, Abdomen soft, non-tender. Bowel sounds normal. No masses, organomegaly Extremities: Extremities normal. No deformities, edema, or skin discoloration. Good capillary refill. Musculoskeletal: Spine range of motion normal. Muscular strength intact Peripheral pulses: Normal Neuro: Gait normal. Reflexes normal and symmetric. Sensation grossly intact. DATA: Diagnostic tests reviewed for today's visit: Most recent labs Most recent imaging Last colonoscopy 2016 Zuleyka Craft APRN.CNP January 30, 2023 9:35 AM [facility] 01-09-2023 Note HNO ID: [id number] Author: Aleyda Magana TECHNDAVONTE Service: ? Author Type: Technologist Type: Progress Notes Filed: 01/09/2023 9:34 AM Note Text: Radiology Service Progress Note PATIENT NAME: Valentín Walker DATE OF SERVICE: January 09, 2023 TIME: 9:34 AM PATIENT IDENTITY VERIFICATION COMPLETED USING TWO (2) IDENTIFIERS: Name and Date of confirmed by patient verbally. FALL SCREENING: Has the patient had 2 falls in the last year or 1 fall with injury or currently using an Ambulatory Assistive Device (Walker, Cane, Wheelchair, Crutches, etc.)? No PATIENT GENDER DATA: Female. status: : No status: NO. PATIENT RELEVANT IMPLANT DATA REVIEWED: Yes RADIOLOGY DEPARTMENT: Ultrasound PERIPHERAL IV DATA: Not applicable SIGNED BY: TECHNOLOGIST Mary January 09, 2023 9:34 AM [facility] 01-09-2023 History of Presen t illness Narrative Radiology Service Progress Note PATIENT NAME: Valentín Walker DATE OF SERVICE: January 09, 2023 TIME: 9:34 AM PATIENT IDENTITY VERIFICATION COMPLETED USING TWO (2) IDENTIFIERS: Name and Date of confirmed by patient verbally. FALL SCREENING: Has the patient had 2 falls in the last year or 1 fall with injury or currently using an Ambulatory Assistive Device (Walker, Cane, Wheelchair, Crutches, etc.)? No PATIENT GENDER DATA: Female. status: : No status: NO. PATIENT RELEVANT IMPLANT DATA REVIEWED: Yes RADIOLOGY DEPARTMENT: Ultrasound PERIPHERAL IV DATA: Not applicable SIGNED BY: TECHNOLOGIST Mary January 09, 2023 9:34 AM documented in this encounter [facility] 01-07-2023 Miscellaneous Notes The following approved medication requests have been transmitted electronically. Requested Prescriptions Signed Prescriptions Disp Refills tiZANidine (ZANAFLEX) 4 mg tablet 60 tablet 0 Sig: take 1 tablet by mouth twice a day if needed Authorizing Provider: MARGI SERRANO MD Pharmacy verified in [place] Patient has been identified by name and date of : Yes Patient aware RX will be sent to pharmacy. No need to notify patient. Pharmacy phones for refill(s): Requested Prescriptions Pending Prescriptions Disp Refills tiZANidine (ZANAFLEX) 4 mg tablet [Pharmacy Med Name: TIZANIDINE HCL 4 MG TABLET] 60 tablet 0 Sig: take 1 tablet by mouth twice a day if needed Date of last office visit : 07/23/2022 Date of next office visit : Visit date not found Last 2 Encounter Wt Readings: Date: Wt: 08/01/2022 128.8 kg (284 lb) 07/23/2022 128.8 kg (284 lb) Not applicable Please advise. Kinga Yoon LPN documented in this encounter [facility] 01-05-2023 Miscellaneous Notes Pharmacy verified in [place] Patient has been identified by name and date of : Yes Patient aware RX will be sent to pharmacy. No need to notify patient. Pharmacy phones for refill(s): Requested Prescriptions Pending Prescriptions Disp Refills atorvastatin (LIPITOR) 20 mg tablet [Pharmacy Med Name: ATORVASTATIN 20 MG TABLET] 90 tablet 0 Sig: take 1 tablet by mouth once daily lisinopril-hydroCHLOROthiazide (ZESTORETIC) 10-12.5 mg per tablet [Pharmacy Med Name: LISINOPRIL-HCTZ 10-12.5 MG TAB] 90 tablet 0 Sig: take 1 tablet by mouth once daily Date of last office visit : 07/23/2022 Date of next office visit : Visit date not found Last 2 Encounter Wt Readings: Date: Wt: 08/01/2022 128.8 kg (284 lb) 07/23/2022 128.8 kg (284 lb) Cholesterol: Triglyceride (mg/dL) Date Value 02/12/2022 158 02/01/2021 147 HDL Cholesterol (mg/dL) Date Value 02/12/2022 31 02/01/2021 28 LDL Cholesterol (mg/dL) Date Value 02/12/2022 60 02/01/2021 68 ALT (U/L) Date Value 08/08/2022 23 11/12/2020 26 Non HDL Cholesterol (mg/dL) Date Value 02/12/2022 92 02/01/2021 97 Blood Pressure: BUN (mg/dL) Date Value 02/12/2022 10 02/01/2021 9 Creatinine (mg/dL) Date Value 02/12/2022 0.71 02/01/2021 0.64 Sodium (mmol/L) Date Value 02/12/2022 136 02/01/2021 140 Potassium (mmol/L) Date Value 02/12/2022 4.3 02/01/2021 4.1 Last 1 Encounter BP Readings: Date: BP: 08/01/2022 121/72 Please advise. Kinga Yoon LPN documented in this encounter [facility] 12-27-2022 Miscellaneous Notes Patient requesting refills as follow: Last prescribed : 11/03/22 Last OV: 07/23/22 Next OV: none Requested Prescriptions Pending Prescriptions Disp Refills DULoxetine (CYMBALTA) 60 mg capsule [Pharmacy Med Name: DULOXETINE HCL DR 60 MG CAP] 30 capsule 1 Sig: take 1 capsule by mouth once daily Please review and advise. Ashley Gresham Ma documented in this encounter [facility] 11-26-2022 Miscellaneous Notes Received orders for CPAP supplies (2 forms) from [facility]. Placed in provider's inbox for review. Route to [place] fax documented in this encounter [facility] 11-24-2022 Miscellaneous Notes Spoke with patient, OV for follow up scheduled 01/30/23 per patient preference. Claudia Shannon Ma Spoke with patient - number given to schedule US. She will schedule and then call back to set up follow up appointment with Zuleyka Craft. Claudia Shannon Ma Patient was sent letter today due to no contact back from patient to schedule follow up with Nora. Kelsi Hall Ma Called and left message for patient to call back to schedule follow up. Will need HFP and US done prior to appointment. Claudia Shannon Ma ----- Message from Claudia Shannon Ma sent at 08/01/2022 9:58 AM EDT ----- Regardin month follow up Return in about 6 months (around 01/31/2023). Check for US and labs prior to visit documented in this encounter [facility] 11-24-2022 Miscellaneous Notes Pharmacy faxed requesting the following refill. Requested Prescriptions Pending Prescriptions Disp Refills doxepin capsule 10 mg [Pharmacy Med Name: DOXEPIN 10 MG CAPSULE] 90 capsule 1 Sig: take 1 capsule by mouth at bedtime Patient's Last Office Visit: 08/01/2022 Patient Phone numbers: [phone] (home) Request is for script(s) to be escript to pharmacy. Anitha Choi Firepot Operator And Tender documented in this encounter [facility] 11-18-2022 Note HNO ID: [id number] Author: Shahriar Che PT Service: ? Author Type: Physical Therapist Type: Progress Notes Filed: 11/18/2022 9:15 AM Note Text: 11/18/2022 [facility] PHYSICAL THERAPY DISCONTINUANCE OF CARE Plan of Care Period: Start of Care Date: 05/08/22 Last Visit Date: 08/05/2022 Therapy Program: The following is a summary of the interventions provided for this episode of care; Therapeutic exercise, Manual therapy, Self-senior living management, and Patient/Family/Caregiver Education Assessment: The following is the goal status: Goals updated 08/05/2022 Goals for Episode of Care: created on 05/08/22 through 08/28/22 Loving in home exercise program. - Met so far Perform walking without pain. - Progressing, will continue Increase ROM of the L ankle to 16 degrees of DF for normal joint mechanics when walking in 8 weeks or less - Progressing slowly, will continue Pt will demo SL heel raise with 2/10 pain or less in 4 months or less for ease of walking - Not met, will continue Normal gait. - Progressing, will continue Patient Goals: Return to walking normally Based on the most recent progress report, patient was progressing as expected toward functional goals based on home exercise program compliance, pain levels, and documented subjective information on progress. Reason for Discontinuation of Care: Patient has not returned to therapy or scheduled additional follow-up appointments. Shahriar Che, PT [facility] 11-03-2022 Miscellaneous Notes Pharmacy verified in Epic Patient has been identified by name and date of : Yes Patient aware RX will be sent to pharmacy. No need to notify patient. Pharmacy phones for refill(s): Requested Prescriptions Pending Prescriptions Disp Refills DULoxetine (CYMBALTA) 60 mg capsule 30 capsule 1 Sig: Take 1 capsule by mouth once daily. Date of last office visit : 07/23/2022 Date of next office visit : Visit date not found Last 2 Encounter Wt Readings: Date: Wt: 08/01/2022 128.8 kg (284 lb) 07/23/2022 128.8 kg (284 lb) Not applicable Please advise. Kinga Yoon LPN documented in this encounter [facility] 09-08-2022 Miscellaneous Notes Pharmacy faxed requesting the following refill. Requested Prescriptions Pending Prescriptions Disp Refills ursodiol (ACTIGALL) 300 mg capsule [Pharmacy Med Name: URSODIOL 300 MG CAPSULE] 540 capsule 2 Sig: take 2 capsules by mouth three times a day Patient's Last Office Visit: 08/01/2022 Patient Phone numbers: [phone] (home) Request is for script(s) to be escript to pharmacy. Anitha Choi [employer]pot Operator [employer] Tender documented in this encounter [facility] 08-22-2022 Miscellaneous Notes The following approved medication requests have been transmitted electronically. Requested Prescriptions Signed Prescriptions Disp Refills DULoxetine (CYMBALTA) 60 mg capsule 30 capsule 1 Sig: take 1 capsule by mouth once daily Authorizing Provider: MARGI SERRANO MD Last appointment: 07/23/22 Next appointment: n/a Pharmacy verified in [place]. Refill(s) requested: Requested Prescriptions Pending Prescriptions Disp Refills DULoxetine (CYMBALTA) 60 mg capsule [Pharmacy Med Name: DULOXETINE HCL DR 60 MG CAP] 30 capsule 1 Sig: take 1 capsule by mouth once daily Order(s) pended. Please advise. Felipa Damico LPN documented in this encounter [facility] 08-05-2022 Note HNO ID: [id number] Author: Shahriar Che PT Service: ? Author Type: Physical Therapist Type: Progress Notes Filed: 08/05/2022 3:42 PM Note Text: Episode Visit Count: 12 Therapist That Will Accept/Oversee The Plan Of Care: Shahriar Che Start of Care Date: 05/08/22 Onset Date: 04/29/22 Patient Identified by Name and Date of : Yes REHABILITATION AND SPORTS THERAPY PHYSICAL THERAPY PROGRESS REPORT PLAN OF CARE UPDATE: Assessment: Valentín Walker demonstrates difficulty with walking, stair negotiation, and squatting and improvements in standing and walking. She has progressed toward goals. Patient continues to present with impairments in ADL's, gait, range of motion, and strength that interfere with . Current prognosis is Good due to: current objective clinical presentation, good overall health status . She will benefit from continued skilled therapy services to meet the updated goals for this plan of care as noted below. Goals updated 08/05/2022 Goals for Episode of Care: created on 05/08/22 through 08/28/22 Loving in home exercise program. - Met so far Perform walking without pain. - Progressing, will continue Increase ROM of the L ankle to 16 degrees of DF for normal joint mechanics when walking in 8 weeks or less - Progressing slowly, will continue Pt will demo SL heel raise with 2/10 pain or less in 4 months or less for ease of walking - Not met, will continue Normal gait. - Progressing, will continue Patient Goals: Return to walking normally Planned Interventions, Frequency, and Duration: 1x/week, 4 weeks Total Number of Visits Planned: 4 Patient to be seen for Therapeutic exercise (19677), Neuromuscular re-education (77292), Manual therapy (65451), Self-senior living management (70918), Gait Training (56063), Patient/Family/Caregiver Education PLAN FOR NEXT VISIT: Loading of achilles SUBJECTIVE: Patient Reason for Visit: The heel has not been to bad. Has an appointment 1 week from today with her physician. Walking mostly without the boot when in the house. Wants to wait to schedule more PT until she finds out when her physician says. Recovery time seems to be better after completing loading exercises on the L achilles. Pain: Pain Pain Level: 2 Pain Location: Heel - Left, Ankle - Left Post Treatment Pain Post Treatment Pain Level: (Not rated) Post Treatment Pain Location: Heel - Left PROMIS Scales T-scores: mean of general population = 50. 5 points is clinically meaningfully difference Percentiles provide an indication of how the patient's score ranks in relation to the general population. Higher percentile rankings indicate better function/quality of life. 50th percentile is the average of the general population and indicates half of respondents had a worse score. OBJECTIVE MEASURES WITH LEVEL OF FUNCTION: LE AROM L Ankle Dorsiflexion: 9 Degrees L Ankle Plantar Flexion: 55 Degrees L Ankle Inversion: 35 L Ankle Eversion: 15 LE Strength L Ankle Dorsiflexion (L4): 5/5 L Ankle Plantar Flexion: 4-/5 (Pain) L Ankle Inversion: 4/5 (pain) L Ankle Eversion: 4/5 (pain) Gait Gait Observation: Pt demonstrates decreased pratibha, WB, step length and heel strike when walking on the LLE but overall improvement is seen in the severity of that just states. Pt does have improved pratibha and decreased pain with ambulation when using a SPC on the R. TREATMENT: Therapeutic Exercise: 1: Objective measures taken 2: Bilat heel raise 50/50 3 x 10 3: Ankle ROM pf/df x 10 Skilled Intervention: Patient was educated in proper exercise technique and purpose for exercises. Correct performance of therapeutic exercises was facilitated with verbal and visual cuing. Manual Therapy: 1: STM thumb gliding down gastroc and soleus in supine with bolster under the knee Skilled Intervention: Manual skills to improve joint mobility, ROM, and decrease pain. Utilized anatomy knowledge of the therapist, and assessment of patient's response to intervention. Billing Therapeutic Exercise Treatment Minutes: 30 Manual TherapyTreatment Minutes: 9 Total Treatment Time Minutes (timed/untimed): 39 Shahriar Che PT [facility] 08-05-2022 History of Presen t illness Narrative Episode Visit Count: 12 Therapist That Will Accept/Oversee The Plan Of Care: Shahriar Che Start of Care Date: 05/08/22 Onset Date: 04/29/22 Patient Identified by Name and Date of : Yes REHABILITATION AND SPORTS THERAPY PHYSICAL THERAPY PROGRESS REPORT PLAN OF CARE UPDATE: Assessment: Valentín Walker demonstrates difficulty with walking, stair negotiation, and squatting and improvements in standing and walking. She has progressed toward goals. Patient continues to present with impairments in ADL's, gait, range of motion, and strength that interfere with . Current prognosis is Good due to: current objective clinical presentation, good overall health status . She will benefit from continued skilled therapy services to meet the updated goals for this plan of care as noted below. Goals updated 08/05/2022 Goals for Episode of Care: created on 05/08/22 through 08/28/22 Loving in home exercise program. - Met so far Perform walking without pain. - Progressing, will continue Increase ROM of the L ankle to 16 degrees of DF for normal joint mechanics when walking in 8 weeks or less - Progressing slowly, will continue Pt will demo SL heel raise with 2/10 pain or less in 4 months or less for ease of walking - Not met, will continue Normal gait. - Progressing, will continue Patient Goals: Return to walking normally Planned Interventions, Frequency, and Duration: 1x/week, 4 weeks Total Number of Visits Planned: 4 Patient to be seen for Therapeutic exercise (54019), Neuromuscular re-education (42890), Manual therapy (94613), Self-senior living management (20609), Gait Training (57737), Patient/Family/Caregiver Education PLAN FOR NEXT VISIT: Loading of achilles SUBJECTIVE: Patient Reason for Visit: The heel has not been to bad. Has an appointment 1 week from today with her physician. Walking mostly without the boot when in the house. Wants to wait to schedule more PT until she finds out when her physician says. Recovery time seems to be better after completing loading exercises on the L achilles. Pain: Pain Pain Level: 2 Pain Location: Heel - Left, Ankle - Left Post Treatment Pain Post Treatment Pain Level: (Not rated) Post Treatment Pain Location: Heel - Left PROMIS Scales T-scores: mean of general population = 50. 5 points is clinically meaningfully difference Percentiles provide an indication of how the patient's score ranks in relation to the general population. Higher percentile rankings indicate better function/quality of life. 50th percentile is the average of the general population and indicates half of respondents had a worse score. OBJECTIVE MEASURES WITH LEVEL OF FUNCTION: LE AROM L Ankle Dorsiflexion: 9 Degrees L Ankle Plantar Flexion: 55 Degrees L Ankle Inversion: 35 L Ankle Eversion: 15 LE Strength L Ankle Dorsiflexion (L4): 5/5 L Ankle Plantar Flexion: 4-/5 (Pain) L Ankle Inversion: 4/5 (pain) L Ankle Eversion: 4/5 (pain) Gait Gait Observation: Pt demonstrates decreased pratibha, WB, step length and heel strike when walking on the LLE but overall improvement is seen in the severity of that just states. Pt does have improved pratibha and decreased pain with ambulation when using a SPC on the R. TREATMENT: Therapeutic Exercise: 1: Objective measures taken 2: Bilat heel raise 50/50 3 x 10 3: Ankle ROM pf/df x 10 Skilled Intervention: Patient was educated in proper exercise technique and purpose for exercises. Correct performance of therapeutic exercises was facilitated with verbal and visual cuing. Manual Therapy: 1: STM thumb gliding down gastroc and soleus in supine with bolster under the knee Skilled Intervention: Manual skills to improve joint mobility, ROM, and decrease pain. Utilized anatomy knowledge of the therapist, and assessment of patient's response to intervention. Billing Therapeutic Exercise Treatment Minutes: 30 Manual TherapyTreatment Minutes: 9 Total Treatment Time Minutes (timed/untimed): 39 Shahriar Che PT documented in this encounter [facility] 08-01-2022 Note HNO ID: [id number] Author: Zuleyka Craft APRN.WORKERS COMPENSATION COORDINATOR Service: ? Author Type: Nurse Practitioner Type: Progress Notes Filed: 08/20/2022 1:17 PM Note Text: ASSESSMENT AND PLAN BELLE/PBC -- has declined bariatric surgery; has not followed with foxing closer or made any progress in wt loss -- has number now to talk with bariatrics about newer wt loss medications; encouraged her to call -- next US due 12/2022> already ordered. 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 Med related -- does not seem excessive -- helped by prn imodium -- contine ursodiol HPI: Ms. Walker is a 57 year old female who presents for follow up of BELLE/PBC. 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 This will progress. NAFLD is driving this>>>pbc. Follow with US q 6 months. Discussed cirrhosis is coming along with decompensation. BMI is the main issue now. BMI 50, discussed weight loss in office today. Discussed referral to bariatric surgery, how crucial weight loss is here. She declines this. She states she will contact a foxing closer she knows to help. Gave her a diet handout. Continue urosodiol for pbc component (biopsy done on treatment) See in 6 months with ultrasound again and labs. RUQ US 07/14/21: Enlarged fatty liver Cholelithiasis. CBD normal in caliber. Otherwise normal imaging of RUQ No recent LFT's: last checked 2020: normal EGD 03/31/2018: (Dr Dela Cruz, for variceal screening): normal Last colonoscopy 2015( Dr Murphy): diverticulosis. Recall in 10 years. TODAY: Achilles tendonitis; wearing left boot and says she might need surgery Had bad covid last month (second time): bad respiratory sx's, fever>> all resolved now Rare RUQ pain Diarrhea is my life My GP is changing my diabetic meds; decreasing the metformin>> new consult to bariatrics is placed Has had diarrhea every since starting ursodiol; 3 -4 times/day; sometimes liquid, sometimes soft. Takes imodium if she is going out to avoid accidents No black or bloody stools Itching off and on; has questran prn which helps Never talked to a foxing closer and not interested in surgery The nurse at her PCP's office gave her a number for a bariatric person to discuss new medications for weight loss; has not called yet; number is at [facility] Review of Systems: PAIN ASSESSMENT: Negative for pain, history of chronic pain, or current treatment for a chronic pain condition. GENERAL: No weight loss, malaise or fevers. RESPIRATORY: Negative for cough, hemoptysis, wheezing, COPD, dyspnea or shortness of breath CARDIOVASCULAR: Negative for chest pain, leg swelling, hypertension, CHF or palpitations GI: See HPI : No history of dysuria, frequency or incontinence PSYCH: Negative for sleep disturbance, mood disorder and recent psychosocial stressors. NEURO: No history of headaches, syncope, paralysis, seizures or tremors The remainder of the review of systems is negative. Where do you currently reside? Independently Are you taking any blood thinners? No PHYSICAL EXAM: BP 121/72 Pulse 94 Ht 5' 4.02 (1.63m) Wt 284 lb (128.8kg) BMI 48.72 kg/(m2). WAS WEIGHED LAST WEEK; NOT TODAY General appearance: well appearing, alert, in no acute distress, and well-hydrated, well nourished Skin: Skin color, texture, turgor normal Neck: Supple, no adenopathy Lungs: lungs clear to auscultation no wheezing or rhonchi Heart: RRR without murmur, gallop, or rubs. No ectopy Abdomen: Morbidly obese; Abdomen soft, non-tender. Bowel sounds normal. Extremities: Extremities normal. Wearing boot on LLE Musculoskeletal: Spine range of motion normal. Muscular strength intact Peripheral pulses: Not examined Neuro: Gait normal. Sensation grossly intact. DATA: Diagnostic tests reviewed for today's visit: Most recent labs 01/2022 Most recent imaging 2021 Remote EGD/colonoscopy reports Zuleyka Craft APRN.CNP August 01, 2022 9:30 AM [facility] 07-31-2022 Note HNO ID: [id number] Author: Shahriar Che PT Service: ? Author Type: Physical Therapist Type: Progress Notes Filed: 07/31/2022 5:49 PM Note Text: Episode Visit Count: 11 Therapist That Will Accept/Oversee The Plan Of Care: Shahriar Che Start of Care Date: 05/08/22 Onset Date: 04/29/22 Patient Identified by Name and Date of : Yes REHABILITATION AND SPORTS THERAPY PHYSICAL THERAPY TREATMENT NOTE ASSESSMENT: Valentín Walker tolerated the session with some pain with BLE heel raises. She demonstrated fair tolerance to MT over calf muscle. The patient will continue to benefit from ongoing skilled physical therapy to progress toward set goals and for reassessment by supervising therapist. PLAN FOR NEXT VISIT: POC update SUBJECTIVE: Patient Reason for Visit: Still wearing the boot out of the house. But not wearing the boot inside the house now. Swelling still ebs and flows. The heel raises are still sometimes painful. Pain: Pain Pain Level: 4 Pain Location: Heel - Left, Ankle - Left Post Treatment Pain Post Treatment Pain Location: Heel - Left OBJECTIVE MEASURES WITH LEVEL OF FUNCTION: Taught band of muscle at proximal, medial gastrocnemius TREATMENT: Therapeutic Exercise: 1: BLE heel raise 3 x 10 4: Ankle PF/DF x 10 reps 5: Ankel circles x 10 6: Ankle inv/ev x 10 Skilled Intervention: Patient was educated in proper exercise technique and purpose for exercises. Provided written instruction for home exercise program to facilitate proper performance and compliance. Manual Therapy: 1: Pt in R sidelying firm STM gliding along medial gastroc muscle belly push to tolerance Skilled Intervention: Manual skills to improve joint mobility, ROM, and decrease pain. Utilized anatomy knowledge of the therapist, and assessment of patient's response to intervention. Billing Therapeutic Exercise Treatment Minutes: 15 Manual TherapyTreatment Minutes: 15 Total Treatment Time Minutes (timed/untimed): 30 Shahriar Che PT [facility] 07-31-2022 History of Presen t illness Narrative Episode Visit Count: 11 Therapist That Will Accept/Oversee The Plan Of Care: Shahriar Che Start of Care Date: 05/08/22 Onset Date: 04/29/22 Patient Identified by Name and Date of : Yes REHABILITATION AND SPORTS THERAPY PHYSICAL THERAPY TREATMENT NOTE ASSESSMENT: Valentín Walker tolerated the session with some pain with BLE heel raises. She demonstrated fair tolerance to MT over calf muscle. The patient will continue to benefit from ongoing skilled physical therapy to progress toward set goals and for reassessment by supervising therapist. PLAN FOR NEXT VISIT: POC update SUBJECTIVE: Patient Reason for Visit: Still wearing the boot out of the house. But not wearing the boot inside the house now. Swelling still ebs and flows. The heel raises are still sometimes painful. Pain: Pain Pain Level: 4 Pain Location: Heel - Left, Ankle - Left Post Treatment Pain Post Treatment Pain Location: Heel - Left OBJECTIVE MEASURES WITH LEVEL OF FUNCTION: Taught band of muscle at proximal, medial gastrocnemius TREATMENT: Therapeutic Exercise: 1: BLE heel raise 3 x 10 4: Ankle PF/DF x 10 reps 5: Ankel circles x 10 6: Ankle inv/ev x 10 Skilled Intervention: Patient was educated in proper exercise technique and purpose for exercises. Provided written instruction for home exercise program to facilitate proper performance and compliance. Manual Therapy: 1: Pt in R sidelying firm STM gliding along medial gastroc muscle belly push to tolerance Skilled Intervention: Manual skills to improve joint mobility, ROM, and decrease pain. Utilized anatomy knowledge of the therapist, and assessment of patient's response to intervention. Billing Therapeutic Exercise Treatment Minutes: 15 Manual TherapyTreatment Minutes: 15 Total Treatment Time Minutes (timed/untimed): 30 Shahriar Che PT documented in this encounter [facility] 07-23-2022 Note HNO ID: [id number] Author: Luis Velasquez APRN.WORKERS COMPENSATION COORDINATOR Service: ? Author Type: Nurse Practitioner Type: Progress Notes Filed: 07/23/2022 11:07 AM Note Text: This note was created using [employer]. Subjective Valentín Walker is a 57 year old female. Patient here for ER follow-up from recent covid infection. She was seen in the ER twice for palpitations and breathing issues was told to follow up with PCP. ER doctor thought some of her symptoms might be related to anxiety as she had been out of the Cymbalta for a couple weeks. Patient reports some lingering nasal congestion, but no cough/SOB/wheezing and feeling much better. History of chronic low back pain and sciatica, managed by pain management with injections every 3 months and Cymbalta. She would like PCP to take over prescribing of Cymbalta. DMII: PCP started glimepiride at previous visit and she is tolerating well. Also taking metformin. Checks blood sugars less than once weekly or if she feels bad, usually fastings are 90-115. No signs of low blood sugars. Patient is not interested in weight loss surgery, but is open to medications that assist with weight loss. HTN: doesn't check BP's at home, didn't take her medication yet today. Review of Systems Constitutional: Negative for fever. HENT: Positive for congestion. Respiratory: Negative for cough, chest tightness, shortness of breath and wheezing. Cardiovascular: Negative for chest pain and palpitations. Gastrointestinal: Negative for abdominal pain. Allergic/Immunologic: Positive for immunocompromised state. Neurological: Negative for headaches. PAST MEDICAL HISTORY Diagnosis Date Diabetes (HCC) Eczema Mixed hyperlipidemia Hyperlipidemia Obstructive sleep apnea Snoring Unspecified essential hypertension Essential hypertension PAST SURGICAL HISTORY Procedure Laterality Date COLONOSCOPY 05/11/15 repeat in 10 years CONIZATION CERVIX W/WO DANDC RPR ELTRD EXC ~1999 TONSILLECTOMY PRIMARY/SECONDARY Tonsillectomy TOTAL ABDOMINAL HYSTERECT W/WO RMVL TUBE OVARY ~1999 Hysterectomy, [facility] Codeine, Niaspan [Niacin], and Percodan [Oxycodone Akw-Hcdhmcsof-Rmg] MEDICATIONS lisinopril-hydroCHLOROthiazide (PRINZIDE,ZESTORETIC) 10-12.5 mg per tablet take 1 tablet by mouth once daily atorvastatin (LIPITOR) 20 mg tablet take 1 tablet by mouth once daily DULoxetine (CYMBALTA) 60 mg capsule Take 1 capsule by mouth once daily. doxepin capsule 10 mg take 1 capsule by mouth at bedtime glimepiride (AMARYL) 1 mg tablet Take 1 tablet by mouth daily with breakfast. metFORMIN (GLUCOPHAGE) 500 mg tablet Take 1 tablet by mouth twice daily with meals. CPAP/BIPAP/OTHER Type .CPAPSettings into a note to see current settings/supplies/DME information. ursodiol (ACTIGALL) 300 mg capsule take 2 capsules by mouth three times a day tiZANidine (ZANAFLEX) 4 mg tablet Take 1 tablet by mouth twice daily as needed. cholestyramine (QUESTRAN) 4 gram packet Take 1 Packet by mouth three times daily with meals. Take by mouth as directed. (Patient taking differently: Take 1 Packet by mouth three times daily with meals. As needed) blood sugar diagnostic (BLOOD GLUCOSE TEST) test strip Test blood sugar(s) 1 times daily. Dx: Type 2 DM - Controlled E11.9 Insulin: No (Patient taking differently: Test blood sugar(s) 1 times daily. Dx: Type 2 DM - Controlled E11.9 Insulin: No) Lancets lancets Test blood sugar(s) 1 times daily. Dx: Type 2 DM - Controlled E11.9 Insulin: No (Patient taking differently: Test blood sugar(s) 1 times daily. Dx: Type 2 DM - Controlled E11.9 Insulin: No) Blood-Glucose Meter monitoring kit Glucose Meter of Choice - Kit - Dx: Type 2 DM - Controlled E11.9, no insulin (Patient taking differently: Glucose Meter of Choice - Kit - Dx: Type 2 DM - Controlled E11.9, no insulin) CPAP autoPAP 10-20 cmH2O, mask, tubing, filters, heated humidity, lifetime supplies. Please fax 30 day compliance download to [phone] ([place]). Dx: SIA. Old machine broke. COMPOUNDED PRESCRIPTION CPAP @ 13 cm of water with humidification. Mask (per patient preference) optional chin strap (if indicated) , filters, tubing, humidifier and lifetime supplies. Dx. SIA 327.23 FAMILY HISTORY Problem Relation Age of Onset Hypertension Father Lipids Father Arthritis Mother Hypertension Mother Lipids Mother Stroke Mother Asthma Sister Lipids Sister Psychiatry Sister Psychiatry Daughter depression Allergies Sister Colon Polyps No Family History Colon Cancer No Family History Social History Tobacco Use Smoking status: Former Types: Cigarettes Smokeless tobacco: Never Tobacco comments: Quit in 1996 Vaping Use Vaping Use: Never used Substance Use Topics Alcohol use: Yes Comment: rarely Drug use: No Objective BP 136/68 Pulse 91 Wt 128.8 kg (284 lb) BMI 48.72 kg/m? Physical Exam Vitals and nursing note reviewed. Constitutional (more content not included)... [facility] 07-23-2022 History of Presen t illness Narrative This note was created using [employer]. Subjective Valentín Walker is a 57 year old female. Patient here for ER follow-up from recent covid infection. She was seen in the ER twice for palpitations and breathing issues was told to follow up with PCP. ER doctor thought some of her symptoms might be related to anxiety as she had been out of the Cymbalta for a couple weeks. Patient reports some lingering nasal congestion, but no cough/SOB/wheezing and feeling much better. History of chronic low back pain and sciatica, managed by pain management with injections every 3 months and Cymbalta. She would like PCP to take over prescribing of Cymbalta. DMII: PCP started glimepiride at previous visit and she is tolerating well. Also taking metformin. Checks blood sugars less than once weekly or if she feels bad, usually fastings are 90-115. No signs of low blood sugars. Patient is not interested in weight loss surgery, but is open to medications that assist with weight loss. HTN: doesn't check BP's at home, didn't take her medication yet today. Review of Systems Constitutional: Negative for fever. HENT: Positive for congestion. Respiratory: Negative for cough, chest tightness, shortness of breath and wheezing. Cardiovascular: Negative for chest pain and palpitations. Gastrointestinal: Negative for abdominal pain. Allergic/Immunologic: Positive for immunocompromised state. Neurological: Negative for headaches. PAST MEDICAL HISTORY Diagnosis Date Diabetes (HCC) Eczema Mixed hyperlipidemia Hyperlipidemia Obstructive sleep apnea Snoring Unspecified essential hypertension Essential hypertension PAST SURGICAL HISTORY Procedure Laterality Date COLONOSCOPY 05/11/15 repeat in 10 years CONIZATION CERVIX W/WO D&C RPR ELTRD EXC ~1999 TONSILLECTOMY PRIMARY/SECONDARY <AGE 11 Tonsillectomy TOTAL ABDOMINAL HYSTERECT W/WO RMVL TUBE OVARY ~1999 Hysterectomy, [facility] Codeine, Niaspan [Niacin], and Percodan [Oxycodone [id number]] MEDICATIONS lisinopril-hydroCHLOROthiazide (PRINZIDE,ZESTORETIC) 10-12.5 mg per tablet take 1 tablet by mouth once daily atorvastatin (LIPITOR) 20 mg tablet take 1 tablet by mouth once daily DULoxetine (CYMBALTA) 60 mg capsule Take 1 capsule by mouth once daily. doxepin capsule 10 mg take 1 capsule by mouth at bedtime glimepiride (AMARYL) 1 mg tablet Take 1 tablet by mouth daily with breakfast. metFORMIN (GLUCOPHAGE) 500 mg tablet Take 1 tablet by mouth twice daily with meals. CPAP/BIPAP/OTHER Type .CPAPSettings into a note to see current settings/supplies/DME information. ursodiol (ACTIGALL) 300 mg capsule take 2 capsules by mouth three times a day tiZANidine (ZANAFLEX) 4 mg tablet Take 1 tablet by mouth twice daily as needed. cholestyramine (QUESTRAN) 4 gram packet Take 1 Packet by mouth three times daily with meals. Take by mouth as directed. (Patient taking differently: Take 1 Packet by mouth three times daily with meals. As needed) blood sugar diagnostic (BLOOD GLUCOSE TEST) test strip Test blood sugar(s) 1 times daily. Dx: Type 2 DM - Controlled E11.9 Insulin: No (Patient taking differently: Test blood sugar(s) 1 times daily. Dx: Type 2 DM - Controlled E11.9 Insulin: No) Lancets lancets Test blood sugar(s) 1 times daily. Dx: Type 2 DM - Controlled E11.9 Insulin: No (Patient taking differently: Test blood sugar(s) 1 times daily. Dx: Type 2 DM - Controlled E11.9 Insulin: No) Blood-Glucose Meter monitoring kit Glucose Meter of Choice - Kit - Dx: Type 2 DM - Controlled E11.9, no insulin (Patient taking differently: Glucose Meter of Choice - Kit - Dx: Type 2 DM - Controlled E11.9, no insulin) CPAP autoPAP 10-20 cmH2O, mask, tubing, filters, heated humidity, lifetime supplies. Please fax 30 day compliance download to [phone] ([place]). Dx: SIA. Old machine broke. COMPOUNDED PRESCRIPTION CPAP @ 13 cm of water with humidification. Mask (per patient preference) optional chin strap (if indicated) , filters, tubing, humidifier and lifetime supplies. Dx. SIA 327.23 FAMILY HISTORY Problem Relation Age of Onset Hypertension Father Lipids Father Arthritis Mother Hypertension Mother Lipids Mother Stroke Mother Asthma Sister Lipids Sister Psychiatry Sister Psychiatry Daughter depression Allergies Sister Colon Polyps No Family History Colon Cancer No Family History Social History Tobacco Use Smoking status: Former Types: Cigarettes Smokeless tobacco: Never Tobacco comments: Quit in 1996 Vaping Use Vaping Use: Never used Substance Use Topics Alcohol use: Yes Comment: rarely Drug use: No Objective BP 136/68 Pulse 91 Wt 128.8 kg (284 lb) BMI 48.72 kg/m Physical Exam Vitals and nursing note reviewed. Constitutional: Appearance: She is well-developed. She is not ill-appearing. Cardiovascular: Rate and Rhythm: Normal rate and regular rhythm. Heart sounds: Normal heart sounds. Pulmonary: Effort: Pulmonary effort is normal. Breath sounds: Normal breath sounds. Skin: General: Skin is warm and dry. Neurological: Mental Status: She is alert and oriented to person, place, and time. Assessment and Plan 1. Controlled type 2 diabetes mellitus without complication, without long-term current use of insulin (HCC) Improving, continue metformin and glimepiride. 2. Essential hypertension Usually well controlled, continue current medication and periodic monitoring. 3. Obesity, Class III, BMI >= 40 (morbid obesity) E66.01 Willing to discuss weight loss medications, dietitian consult, not in surgery at this time. - [facility]; Future 4. History of COVID-19 Symptoms mostly resolved. Follow up PRN for any new or worsening symptoms. 5. Chronic low back pain with left sided sciatica Controlled on Cymbalta, sees pain management for injections. Luis Velasquez APRN.BRANDAN documented in this encounter [facility] 03-28-2023 Note HNO ID: [id number] Author: Shahriar Che PT Service: ? Author Type: Physical Therapist Type: Progress Notes Filed: 07/22/2022 3:36 PM Note Text: Episode Visit Count: 10 Therapist That Will Accept/Oversee The Plan Of Care: Shahriar Che Start of Care Date: 05/08/22 Onset Date: 04/29/22 Patient Identified by Name and Date of : Yes REHABILITATION AND SPORTS THERAPY PHYSICAL THERAPY TREATMENT NOTE ASSESSMENT: Valentín Walker tolerated the session with expected muscle soreness. She demonstrated fair tolerance to therapeutic exercise, but the tendon does quickly become sore. The patient will continue to benefit from ongoing skilled physical therapy to progress toward set goals. PLAN FOR NEXT VISIT: Continue to load the achilles tendon as tolerated SUBJECTIVE: Patient Reason for Visit: Lots of pain after the last exercise. Sore into the next day but slowly getting better. Pain: Pain Pain Level: 3 Pain Location: Heel - Left, Ankle - Left Post Treatment Pain Post Treatment Pain Location: Heel - Left OBJECTIVE MEASURES WITH LEVEL OF FUNCTION: TREATMENT: Therapeutic Exercise: 1: Resisted ankle PF BTB x 10 (too painful) 2: Resisted ankle PF GTB x 10 3: Resisted ankle PF [place] TB x 10 reps 4: Ankle PF/DF x 10 reps 5: Ankel circles x 10 6: Ankle inv/ev x 10 Skilled Intervention: Patient was educated in proper exercise technique and purpose for exercises. Correct performance of therapeutic exercises was facilitated with verbal cuing. Billing Therapeutic Exercise Treatment Minutes: 25 Manual TherapyTreatment Minutes: 5 Total Treatment Time Minutes (timed/untimed): 30 Shahriar Che PT [facility] 07-22-2022 History of Presen t illness Narrative Episode Visit Count: 10 Therapist That Will Accept/Oversee The Plan Of Care: Cherelle Shahriar Start of Care Date: 05/08/22 Onset Date: 04/29/22 Patient Identified by Name and Date of : Yes REHABILITATION AND SPORTS THERAPY PHYSICAL THERAPY TREATMENT NOTE ASSESSMENT: Valentín Walker tolerated the session with expected muscle soreness. She demonstrated fair tolerance to therapeutic exercise, but the tendon does quickly become sore. The patient will continue to benefit from ongoing skilled physical therapy to progress toward set goals. PLAN FOR NEXT VISIT: Continue to load the achilles tendon as tolerated SUBJECTIVE: Patient Reason for Visit: Lots of pain after the last exercise. Sore into the next day but slowly getting better. Pain: Pain Pain Level: 3 Pain Location: Heel - Left, Ankle - Left Post Treatment Pain Post Treatment Pain Location: Heel - Left OBJECTIVE MEASURES WITH LEVEL OF FUNCTION: TREATMENT: Therapeutic Exercise: 1: Resisted ankle PF BTB x 10 (too painful) 2: Resisted ankle PF GTB x 10 3: Resisted ankle PF [place] TB x 10 reps 4: Ankle PF/DF x 10 reps 5: Ankel circles x 10 6: Ankle inv/ev x 10 Skilled Intervention: Patient was educated in proper exercise technique and purpose for exercises. Correct performance of therapeutic exercises was facilitated with verbal cuing. Billing Therapeutic Exercise Treatment Minutes: 25 Manual TherapyTreatment Minutes: 5 Total Treatment Time Minutes (timed/untimed): 30 Shahriar Che PT documented in this encounter [facility] 07-21-2022 Miscellaneous Notes Patient notified via mychart by Dr. De Leon Reminder placed Anitha Choi [employer]pot Operator And Tender ----- Message from Luis De Leon MD sent at 07/20/2022 1:09 PM EDT ----- Stable findings on ultrasound. Next ultrasound for December 2022 has been ordered. Please call the office later in the year to schedule this. Please keep the appointment with Zuleyka Craft CNP this week. [phone] Luis De Leon MD documented in this encounter [facility] 07-17-2022 Note HNO ID: [id number] Author: Shahriar Che PT Service: ? Author Type: Physical Therapist Type: Progress Notes Filed: 07/17/2022 3:44 PM Note Text: Episode Visit Count: 9 Therapist That Will Accept/Oversee The Plan Of Care: Shahriar Che Start of Care Date: 05/08/22 Onset Date: 04/29/22 Patient Identified by Name and Date of : Yes REHABILITATION AND SPORTS THERAPY PHYSICAL THERAPY TREATMENT NOTE ASSESSMENT: Valentín Walker tolerated the session with no issues. She demonstrated improvements in pain levels in the heel post loading exercises for the achilles tendon. The patient will continue to benefit from ongoing skilled physical therapy to progress toward set goals. PLAN FOR NEXT VISIT: Progress achilles tendon as tolerated SUBJECTIVE: Patient Reason for Visit: First day after the new exercise was rough. Much better response to the exercise now. Walking without the boot at times. Walks 10 min at a time twice a day. Pain: Pain Pain Level: 3 Pain Location: Heel - Left, Ankle - Left Post Treatment Pain Post Treatment Pain Level: 5 Post Treatment Pain Location: Heel - Left OBJECTIVE MEASURES WITH LEVEL OF FUNCTION: LE AROM L Ankle Dorsiflexion: 9 Degrees L Ankle Plantar Flexion: 55 Degrees TREATMENT: Therapeutic Exercise: 1: Sidelying clam BTB 3 x 12 reps 2: Standing BLE heel raises 20% BW on LLE 2 x 10 reps 3: L calf stretch supine with bolster under knee and strap assist 4 x 30 sec 4: Supine L ankle DF until stretch is felt at heel 3 x 10 5: Seated soleus raise 3 x 10 Skilled Intervention: Patient was educated in proper exercise technique and purpose for exercises. Provided written instruction for home exercise program to facilitate proper performance and compliance. Correct performance of therapeutic exercises was facilitated with verbal and visual cuing. Billing Therapeutic Exercise Treatment Minutes: 40 Total Treatment Time Minutes (timed/untimed): 40 Shahriar Che PT [facility] 07-17-2022 History of Presen t illness Narrative Episode Visit Count: 9 Therapist That Will Accept/Oversee The Plan Of Care: Shahriar Che Start of Care Date: 05/08/22 Onset Date: 04/29/22 Patient Identified by Name and Date of : Yes REHABILITATION AND SPORTS THERAPY PHYSICAL THERAPY TREATMENT NOTE ASSESSMENT: Valentín Walker tolerated the session with no issues. She demonstrated improvements in pain levels in the heel post loading exercises for the achilles tendon. The patient will continue to benefit from ongoing skilled physical therapy to progress toward set goals. PLAN FOR NEXT VISIT: Progress achilles tendon as tolerated SUBJECTIVE: Patient Reason for Visit: First day after the new exercise was rough. Much better response to the exercise now. Walking without the boot at times. Walks 10 min at a time twice a day. Pain: Pain Pain Level: 3 Pain Location: Heel - Left, Ankle - Left Post Treatment Pain Post Treatment Pain Level: 5 Post Treatment Pain Location: Heel - Left OBJECTIVE MEASURES WITH LEVEL OF FUNCTION: LE AROM L Ankle Dorsiflexion: 9 Degrees L Ankle Plantar Flexion: 55 Degrees TREATMENT: Therapeutic Exercise: 1: Sidelying clam BTB 3 x 12 reps 2: Standing BLE heel raises 20% BW on LLE 2 x 10 reps 3: L calf stretch supine with bolster under knee and strap assist 4 x 30 sec 4: Supine L ankle DF until stretch is felt at heel 3 x 10 5: Seated soleus raise 3 x 10 Skilled Intervention: Patient was educated in proper exercise technique and purpose for exercises. Provided written instruction for home exercise program to facilitate proper performance and compliance. Correct performance of therapeutic exercises was facilitated with verbal and visual cuing. Billing Therapeutic Exercise Treatment Minutes: 40 Total Treatment Time Minutes (timed/untimed): 40 Shahriar Che PT documented in this encounter [facility] 07-11-2022 History of Presen t illness Narrative Radiology Service Progress Note PATIENT NAME: Valentín Walker DATE OF SERVICE: July 11, 2022 TIME: 8:54 AM PATIENT IDENTITY VERIFICATION COMPLETED USING TWO (2) IDENTIFIERS: Name and Date of confirmed by patient verbally and Name and Date of confirmed by identification band. FALL SCREENING: Has the patient had 2 falls in the last year or 1 fall with injury or currently using an Ambulatory Assistive Device (Walker, Cane, Wheelchair, Crutches, etc.)? No PATIENT GENDER DATA: Female. status: : No status: NO. PATIENT RELEVANT IMPLANT DATA REVIEWED: Not Applicable RADIOLOGY DEPARTMENT: Ultrasound PERIPHERAL IV DATA: Not applicable SIGNED BY: Nimco Jessica RDMS July 11, 2022 8:54 AM documented in this encounter [facility] 07-10-2022 Note HNO ID: [id number] Author: Shahriar Che PT Service: ? Author Type: Physical Therapist Type: Progress Notes Filed: 07/10/2022 11:40 AM Note Text: Episode Visit Count: 8 Therapist That Will Accept/Oversee The Plan Of Care: Shahriar Che Start of Care Date: 05/08/22 Onset Date: 04/29/22 Patient Identified by Name and Date of : Yes REHABILITATION AND SPORTS THERAPY PHYSICAL THERAPY PROGRESS REPORT PLAN OF CARE UPDATE: Assessment: Valentín Walker demonstrates difficulty with walking, stair negotiation, and physical activities and improvements in ankle ROM, pain levels, improved strength. She has progressed toward goals. Patient continues to present with impairments in ADL's, gait, independence in exercise, range of motion, and strength that interfere with walking, stair negotiation . Current prognosis is Good due to: current objective clinical presentation, good overall health status . She will benefit from continued skilled therapy services to meet the updated goals for this plan of care as noted below. Goals updated 07/10/2022 Goals for Episode of Care: created on 05/08/22 through 08/28/22 Loving in home exercise program. - Met so far Perform walking without pain. - Progressing, will continue Increase ROM of the L ankle to 16 degrees of DF for normal joint mechanics when walking in 8 weeks or less - Progressing slowly, will continue Pt will demo SL heel raise with 2/10 pain or less in 4 months or less for ease of walking - Not met, will continue Normal gait. - Progressing, will continue Patient Goals: Return to walking normally Patient Goals: Return to walking normally Planned Interventions, Frequency, and Duration: 1x/week, 4 weeks Total Number of Visits Planned: 4 Patient to be seen for Therapeutic exercise (38765), Neuromuscular re-education (18970), Manual therapy (86093), Self-senior living management (20140), Gait Training (64169), Patient/Family/Caregiver Education PLAN FOR NEXT VISIT: BLE heel raises as tolerated. Trial STM over L gastoc. SUBJECTIVE: Patient Reason for Visit: Pt's physician said we can start weaning out of the brace and wants 6 more weeks of PT. Had covid a few weeks ago and this was tough to deal with. Was not always able to get in the HEP. Getting around is easier and the pain is better overall. Is ready to start weaning out of the brace. Pt agreeable to weaning out for 1 hours the next 2 days and then increase by 1 hour a day as long as pain does not increase. Patient Goals: Return to walking normally Functional Limitations: walking, stair negotiation Prior Level of Function: Independent without limitations Intake Information: Prescription present Previous Treatment: Steroids Falls Interview: No positive findings with falls interview Pain: Pain Pain Level: 2 Pain Location: Heel - Left, Ankle - Left Post Treatment Pain Post Treatment Pain Location: Heel - Left PROMIS Scales T-scores: mean of general population = 50. 5 points is clinically meaningfully difference Percentiles provide an indication of how the patient's score ranks in relation to the general population. Higher percentile rankings indicate better function/quality of life. 50th percentile is the average of the general population and indicates half of respondents had a worse score. OBJECTIVE MEASURES WITH LEVEL OF FUNCTION: LE AROM L Ankle Dorsiflexion: 9 Degrees L Ankle Plantar Flexion: 55 Degrees LE Flexibility R Gastrocnemius Flexibility: WNL L Gastrocnemius Flexibility: mod tightness LE Strength L Hip Flexion (L2): 4+/5 L Knee Extension (L3): 4+/5 L Ankle Dorsiflexion (L4): 3-/5 L Ankle Plantar Flexion: 3+/5 L Ankle Plantarflexion Functional Strength (S1): Able to perform BLE heel raise today with 20% WB on LLE Gait Gait: Independent Gait Distance (feet): 30 Gait Device: None Gait Deviations: Left Lower Extremity Gait Deviations Left Lower Extremity: Step length decreased, Stance time decreased, Push off during terminal stance decreased, Heel strike during initial stance decreased (No boot today) Gait Observation: Pt is now able to walk without the ankle pain flaring up when out of the boot TREATMENT: Therapeutic Exercise: 1: All objective measures 2: Standing BLE heel raises 20% BW on LLE 2 x 10 reps 3: Supine SLR x 10 4: Supine SLR 1# 2 x 10 6: Standing Runners stretch 2 x 30 seconds Skilled Intervention: Patient was educated in proper exercise technique and purpose for exercises. Provided written instruction for home exercise program to facilitate proper performance and compliance. Correct performance of therapeutic exercises was facilitated with verbal and visual cuing. Billing Therapeutic Exercise Treatment Minutes: 39 Total Treatment Time Minutes (timed/untimed): 39 Shahriar Che PT [facility] 07-10-2022 History of Presen t illness Narrative Episode Visit Count: 8 Therapist That Will Accept/Oversee The Plan Of Care: Cherelle Shahriar Start of Care Date: 05/08/22 Onset Date: 04/29/22 Patient Identified by Name and Date of : Yes REHABILITATION AND SPORTS THERAPY PHYSICAL THERAPY PROGRESS REPORT PLAN OF CARE UPDATE: Assessment: Valentín Walker demonstrates difficulty with walking, stair negotiation, and physical activities and improvements in ankle ROM, pain levels, improved strength. She has progressed toward goals. Patient continues to present with impairments in ADL's, gait, independence in exercise, range of motion, and strength that interfere with walking, stair negotiation . Current prognosis is Good due to: current objective clinical presentation, good overall health status . She will benefit from continued skilled therapy services to meet the updated goals for this plan of care as noted below. Goals updated 07/10/2022 Goals for Episode of Care: created on 05/08/22 through 08/28/22 Loving in home exercise program. - Met so far Perform walking without pain. - Progressing, will continue Increase ROM of the L ankle to 16 degrees of DF for normal joint mechanics when walking in 8 weeks or less - Progressing slowly, will continue Pt will demo SL heel raise with 2/10 pain or less in 4 months or less for ease of walking - Not met, will continue Normal gait. - Progressing, will continue Patient Goals: Return to walking normally Patient Goals: Return to walking normally Planned Interventions, Frequency, and Duration: 1x/week, 4 weeks Total Number of Visits Planned: 4 Patient to be seen for Therapeutic exercise (75503), Neuromuscular re-education (91653), Manual therapy (33333), Self-senior living management (10548), Gait Training (89972), Patient/Family/Caregiver Education PLAN FOR NEXT VISIT: BLE heel raises as tolerated. Trial STM over L gastoc. SUBJECTIVE: Patient Reason for Visit: Pt's physician said we can start weaning out of the brace and wants 6 more weeks of PT. Had covid a few weeks ago and this was tough to deal with. Was not always able to get in the HEP. Getting around is easier and the pain is better overall. Is ready to start weaning out of the brace. Pt agreeable to weaning out for 1 hours the next 2 days and then increase by 1 hour a day as long as pain does not increase. Patient Goals: Return to walking normally Functional Limitations: walking, stair negotiation Prior Level of Function: Independent without limitations Intake Information: Prescription present Previous Treatment: Steroids Falls Interview: No positive findings with falls interview Pain: Pain Pain Level: 2 Pain Location: Heel - Left, Ankle - Left Post Treatment Pain Post Treatment Pain Location: Heel - Left PROMIS Scales T-scores: mean of general population = 50. 5 points is clinically meaningfully difference Percentiles provide an indication of how the patient's score ranks in relation to the general population. Higher percentile rankings indicate better function/quality of life. 50th percentile is the average of the general population and indicates half of respondents had a worse score. OBJECTIVE MEASURES WITH LEVEL OF FUNCTION: LE AROM L Ankle Dorsiflexion: 9 Degrees L Ankle Plantar Flexion: 55 Degrees LE Flexibility R Gastrocnemius Flexibility: WNL L Gastrocnemius Flexibility: mod tightness LE Strength L Hip Flexion (L2): 4+/5 L Knee Extension (L3): 4+/5 L Ankle Dorsiflexion (L4): 3-/5 L Ankle Plantar Flexion: 3+/5 L Ankle Plantarflexion Functional Strength (S1): Able to perform BLE heel raise today with 20% WB on LLE Gait Gait: Independent Gait Distance (feet): 30 Gait Device: None Gait Deviations: Left Lower Extremity Gait Deviations Left Lower Extremity: Step length decreased, Stance time decreased, Push off during terminal stance decreased, Heel strike during initial stance decreased (No boot today) Gait Observation: Pt is now able to walk without the ankle pain flaring up when out of the boot TREATMENT: Therapeutic Exercise: 1: All objective measures 2: Standing BLE heel raises 20% BW on LLE 2 x 10 reps 3: Supine SLR x 10 4: Supine SLR 1# 2 x 10 6: Standing Runners stretch 2 x 30 seconds Skilled Intervention: Patient was educated in proper exercise technique and purpose for exercises. Provided written instruction for home exercise program to facilitate proper performance and compliance. Correct performance of therapeutic exercises was facilitated with verbal and visual cuing. Billing Therapeutic Exercise Treatment Minutes: 39 Total Treatment Time Minutes (timed/untimed): 39 Shahriar Che PT documented in this encounter [facility] 07-01-2022 Miscellaneous Notes Pharmacy verified in [email or web address] Patient has been identified by name and date of : Yes Patient aware RX will be sent to pharmacy. No need to notify patient. Patient phones for refill(s): Requested Prescriptions Pending Prescriptions Disp Refills lisinopril-hydroCHLOROthiazide (PRINZIDE,ZESTORETIC) 10-12.5 mg per tablet [Pharmacy Med Name: LISINOPRIL-HCTZ 10-12.5 MG TAB] 90 tablet 0 Sig: take 1 tablet by mouth once daily atorvastatin (LIPITOR) 20 mg tablet [Pharmacy Med Name: ATORVASTATIN 20 MG TABLET] 90 tablet 0 Sig: take 1 tablet by mouth once daily Date of last office visit : 02/21/2022 Date of next office visit : Visit date not found Last 2 Encounter Wt Readings: Date: Wt: 06/28/2022 147.9 kg (326 lb) 04/30/2022 133.8 kg (295 lb) Cholesterol: Triglyceride (mg/dL) Date Value 02/12/2022 158 02/01/2021 147 HDL Cholesterol (mg/dL) Date Value 02/12/2022 31 02/01/2021 28 LDL Cholesterol (mg/dL) Date Value 02/12/2022 60 02/01/2021 68 ALT (U/L) Date Value 11/12/2020 26 Non HDL Cholesterol (mg/dL) Date Value 02/12/2022 92 02/01/2021 97 Blood Pressure: BUN (mg/dL) Date Value 02/12/2022 10 02/01/2021 9 Creatinine (mg/dL) Date Value 02/12/2022 0.71 02/01/2021 0.64 Sodium (mmol/L) Date Value 02/12/2022 136 02/01/2021 140 Potassium (mmol/L) Date Value 02/12/2022 4.3 02/01/2021 4.1 Last 1 Encounter BP Readings: Date: BP: 06/28/2022 131/59 Please advise. Saadia Rodriguez documented in this encounter [facility] 06-30-2022 Miscellaneous Notes Received ED summary 06/28 and 06/29, labs, imaging, EKG for SOB from [facility]. Placed in provider's inbox for review. Route to MA scanning. documented in this encounter [facility] 06-28-2022 Note HNO ID: [id number] Author: Whitney Mack APRN.WORKERS COMPENSATION COORDINATOR Service: ? Author Type: Nurse Practitioner Type: Progress Notes Filed: 06/28/2022 2:51 PM Note Text: This note was created using Rapportriter. Subjective Valentín Walker is a 57 year old female. HPI by patient and daughter: Valentín Walker is a 57 year old presenting to the office with several complaints. CC: (Sxs started really badly three days ago, she is off of her Cymbalta it has been 15 days.) Mentions she may be needing an ambulance at the front desk agent. Started approximately 3 days prior with the shortness of breath. Associated symptoms include waking up from a sleep with shortness of breath- doesn't feel it's just anxiety. Did stop her Cymbalta unexpectedly. Her pain management doctor manages this, he was on vacation. States she feels she is at the tail end of the withdrawal symptoms from stopping Cymbalta. Denies fever at home- does here in office. Has had a little congestion. 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 Has been having chills today- states she is always hot. Is having dizziness. Denies sore throat, ear pain, and headache. Is eating and drinking okay. Blood sugar was in the 160s. Covid Immunization Dates COVID-19 VACCINE (Series Information) Completed 02/21/2022 Imm Admin: COVID-19 booster vaccine, age 12+ yr, bivalent (PFIZER-BIONTECH) 05/17/2021 Imm Admin: COVID-19 original vaccine, age 12+ yr, monovalent (PFIZER-BIONTECH - PURPLE TOP) 09/07/2020 Imm Admin: COVID-19 original vaccine, full dose, monovalent (MODERNA) 08/10/2020 Imm Admin: COVID-19 original vaccine, full dose, monovalent (MODERNA) Flu/RSV contacts: none. Strep contacts: none. Sick contacts: none. Covid + contacts: none. Travel in the last 14 days: none. Smoking history/second hand smoke: none. OTC ibuprofen. No antibiotic use in the last 60 days. ALLERGIES Codeine Other: See Comments Comment:childhood Niaspan [Niacin] Intolerance Percodan [Oxycodone* Vomiting Family History Reviewed Including Cardiac Diseases, Psychiatric Diseases, AND Substance Abuse Problem: Hypertension Relation: Father Age of Onset: (Not Specified) Problem: Lipids Relation: Father Age of Onset: (Not Specified) Problem: Arthritis Relation: Mother Age of Onset: (Not Specified) Problem: Hypertension Relation: Mother Age of Onset: (Not Specified) Problem: Lipids Relation: Mother Age of Onset: (Not Specified) Problem: Stroke Relation: Mother Age of Onset: (Not Specified) Problem: Asthma Relation: Sister Age of Onset: (Not Specified) Problem: Lipids Relation: Sister Age of Onset: (Not Specified) Problem: Psychiatry Relation: Sister Age of Onset: (Not Specified) Problem: Psychiatry Relation: Daughter Age of Onset: (Not Specified) Comment: depression Problem: Allergies Relation: Sister Age of Onset: (Not Specified) Problem: Colon Polyps Relation: No Family History Age of Onset: (Not Specified) Problem: Colon Cancer Relation: No Family History Age of Onset: (Not Specified) Social History Tobacco Use Smoking status: Former Types: Cigarettes Smokeless tobacco: Never Tobacco comments: Quit in 1996 Vaping Use Vaping Use: Never used Alcohol use: Yes Comment: rarely Drug use: No Active Ambulatory Problems Obstructive sleep apnea on CPAP Date Noted: 09/18/2009 Essential hypertension Date Noted: 09/18/2009 Mixed hyperlipidemia Date Noted: 09/18/2009 Osteoarthrosis, unspecified whether generalized or localized, lower leg Date Noted: 02/25/2010 Other joint derangement, not elsewhere classified, lower leg Date Noted: 02/25/2010 Chondromalacia patella Date Noted: 04/16/2010 Diabetes mellitus type 2, controlled, without complications (HCC) Date Noted: 08/07/2011 Bilateral low back pain with left-sided sciatica Date Noted: 02/03/2015 Obesity, Class III, BMI >= 40 (morbid obesity) E66.01 Date Noted: 04/23/2017 Primary biliary cholangitis (HCC) Date Noted: 11/22/2020 Chronic liver disease Date Noted: 11/22/2020 Tendonitis, Achilles, left Date Noted: 05/08/2022 Resolved Ambulatory Problems Pre-diabetes Date Noted: 01/30/2010 Past Medical History: No date: Diabetes (HCC) No date: Eczema No date: Obstructive sleep apnea No date: Snoring No date: Unspecified essential hypertension Review of Systems Constitutional: Positive for chills. Negative for fatigue and fever. HENT: Positive for congestion. Negative for ear pain and sore throat. Eyes: Negative. Respiratory: Positive for cough and shortness of breath. Cardiovascular: Negative. Gastrointestinal: Negative. Endocrine: Negative. Genitourinary: Negative. Musculoskeletal: Negative. Skin: Negative. Neurological: Negative. Hematological: Negative. Objective BP 131/59 Pulse (!) 128 Temp (!) 39.3 ?C (102.7 ?F) Wt 103.9 kg (229 lb) SpO2 94% BMI 39.29 kg/m? Phys (more content not included)... [facility] 06-28-2022 History of Presen t illness Narrative This note was created using Bestcake. Subjective Valentín Walker is a 57 year old female. HPI by patient and daughter: Valentín Walkre is a 57 year old presenting to the office with several complaints. CC: (Sxs started really badly three days ago, she is off of her Cymbalta it has been 15 days.) Mentions she may be needing an ambulance at the front desk agent. Started approximately 3 days prior with the shortness of breath. Associated symptoms include waking up from a sleep with shortness of breath- doesn't feel it's just anxiety. Did stop her Cymbalta unexpectedly. Her pain management doctor manages this, he was on vacation. States she feels she is at the tail end of the withdrawal symptoms from stopping Cymbalta. Denies fever at home- does here in office. Has had a little congestion. 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 Has been having chills today- states she is always hot. Is having dizziness. Denies sore throat, ear pain, and headache. Is eating and drinking okay. Blood sugar was in the 160s. Covid Immunization Dates COVID-19 VACCINE (Series Information) Completed 02/21/2022 Imm Admin: COVID-19 booster vaccine, age 12+ yr, bivalent (Appointedd) 05/17/2021 Imm Admin: COVID-19 original vaccine, age 12+ yr, monovalent (Appointedd - PURPLE TOP) 09/07/2020 Imm Admin: COVID-19 original vaccine, full dose, monovalent (MODERNA) 08/10/2020 Imm Admin: COVID-19 original vaccine, full dose, monovalent (MODERNA) Flu/RSV contacts: none. Strep contacts: none. Sick contacts: none. Covid + contacts: none. Travel in the last 14 days: none. Smoking history/second hand smoke: none. OTC ibuprofen. No antibiotic use in the last 60 days. ALLERGIES Codeine Other: See Comments Comment:childhood Niaspan [Niacin] Intolerance Percodan [Oxycodone* Vomiting Family History Reviewed Including Cardiac Diseases, Psychiatric Diseases, & Substance Abuse Problem: Hypertension Relation: Father Age of Onset: (Not Specified) Problem: Lipids Relation: Father Age of Onset: (Not Specified) Problem: Arthritis Relation: Mother Age of Onset: (Not Specified) Problem: Hypertension Relation: Mother Age of Onset: (Not Specified) Problem: Lipids Relation: Mother Age of Onset: (Not Specified) Problem: Stroke Relation: Mother Age of Onset: (Not Specified) Problem: Asthma Relation: Sister Age of Onset: (Not Specified) Problem: Lipids Relation: Sister Age of Onset: (Not Specified) Problem: Psychiatry Relation: Sister Age of Onset: (Not Specified) Problem: Psychiatry Relation: Daughter Age of Onset: (Not Specified) Comment: depression Problem: Allergies Relation: Sister Age of Onset: (Not Specified) Problem: Colon Polyps Relation: No Family History Age of Onset: (Not Specified) Problem: Colon Cancer Relation: No Family History Age of Onset: (Not Specified) Social History Tobacco Use Smoking status: Former Types: Cigarettes Smokeless tobacco: Never Tobacco comments: Quit in 1996 Vaping Use Vaping Use: Never used Alcohol use: Yes Comment: rarely Drug use: No Active Ambulatory Problems Obstructive sleep apnea on CPAP Date Noted: 09/18/2009 Essential hypertension Date Noted: 09/18/2009 Mixed hyperlipidemia Date Noted: 09/18/2009 Osteoarthrosis, unspecified whether generalized or localized, lower leg Date Noted: 02/25/2010 Other joint derangement, not elsewhere classified, lower leg Date Noted: 02/25/2010 Chondromalacia patella Date Noted: 04/16/2010 Diabetes mellitus type 2, controlled, without complications (HCC) Date Noted: 08/07/2011 Bilateral low back pain with left-sided sciatica Date Noted: 02/03/2015 Obesity, Class III, BMI >= 40 (morbid obesity) E66.01 Date Noted: 04/23/2017 Primary biliary cholangitis (HCC) Date Noted: 11/22/2020 Chronic liver disease Date Noted: 11/22/2020 Tendonitis, Achilles, left Date Noted: 05/08/2022 Resolved Ambulatory Problems Pre-diabetes Date Noted: 01/30/2010 Past Medical History: No date: Diabetes (HCC) No date: Eczema No date: Obstructive sleep apnea No date: Snoring No date: Unspecified essential hypertension Review of Systems Constitutional: Positive for chills. Negative for fatigue and fever. HENT: Positive for congestion. Negative for ear pain and sore throat. Eyes: Negative. Respiratory: Positive for cough and shortness of breath. Cardiovascular: Negative. Gastrointestinal: Negative. Endocrine: Negative. Genitourinary: Negative. Musculoskeletal: Negative. Skin: Negative. Neurological: Negative. Hematological: Negative. Objective BP 131/59 Pulse (!) 128 Temp (!) 39.3 C (102.7 F) Wt 103.9 kg (229 lb) SpO2 94% BMI 39.29 kg/m Physical Exam Vitals reviewed. Constitutional: General: She is not in acute distress. Appearance: She is ill-appearing. She is not toxic-appearing or diaphoretic. Cardiovascular: Rate and Rhythm: Regular rhythm. Tachycardia present. Pulmonary: Effort: Pulmonary effort is normal. Breath sounds: Examination of the right-lower field reveals decreased breath sounds. Examination of the left-lower field reveals decreased breath sounds. Decreased breath sounds present. No wheezing or rhonchi. Neurological: Mental Status: She is alert. Psychiatric: Behavior: Behavior is cooperative. Assessment and Plan (R00.0) Tachycardia (primary encounter diagnosis) Plan: CONSULT TO EMERGENCY MEDICINE (R79.81) Borderline low oxygen saturation level Plan: CONSULT TO EMERGENCY MEDICINE (R06.02) SOB (shortness of breath) Plan: CONSULT TO EMERGENCY MEDICINE -Has been off Cymbalta for almost 3 weeks, now with new onset shortness of breath within the last 3 days. Is tachycardic in office, borderline low pulse oxygen level. Likely new onset viral illness. Recommending an ER evaluation now for a higher level of evaluation. Vitals stable for private transport. Daughter to drive now. -Call back to schedule a follow up with [facility]. The patient/daughter is agreeable to this plan of care and follow-up instructions have been explained in detail. The patient/daughter has received these instructions in written format and have expressed an understanding of the after visit summary. Medical Decision Making: Level: 4 - Moderate I spent a total of 20 minutes on the date of the service which included preparing to see the patient, [id number] patient care, completing clinical documentation, obtaining and/or reviewing separately obtained history, performing a medically appropriate examination, and counseling and educating the patient/family/caregiver. This patient encounter involved the screening or treatment of novel coronavirus infection (COVID-19). documented in this encounter [facility] 06-28-2022 Instructions Whitney Mack APRN.CNP - 06/28/2022 2:08 PM EST (R00.0) Tachycardia (primary encounter diagnosis) Plan: CONSULT TO EMERGENCY MEDICINE (R79.81) Borderline low oxygen saturation level Plan: CONSULT TO EMERGENCY MEDICINE (R06.02) SOB (shortness of breath) Plan: CONSULT TO EMERGENCY MEDICINE -Has been off Cymbalta for almost 3 weeks, now with new onset shortness of breath within the last 3 days. Is tachycardic in office, borderline low pulse oxygen level. Recommending an ER evaluation now for a higher level of evaluation. Vitals stable for private transport. -Call back to schedule a follow up with [facility]. documented in this encounter [facility] 06-26-2022 Note HNO ID: [id number] Author: Shahriar Che PT Service: ? Author Type: Physical Therapist Type: Progress Notes Filed: 06/26/2022 10:44 AM Note Text: Episode Visit Count: 7 Therapist That Will Accept/Oversee The Plan Of Care: Shahriar Che Start of Care Date: 05/08/22 Onset Date: 04/29/22 Patient Identified by Name and Date of : Yes REHABILITATION AND SPORTS THERAPY PHYSICAL THERAPY TREATMENT NOTE ASSESSMENT: Valentín Walker tolerated the session with no issues. She demonstrated improvements in muscle/tendon sensitivity to ankle ROM and improved AROM observed. The patient will continue to benefit from ongoing skilled physical therapy to progress toward set goals. PLAN FOR NEXT VISIT: PF isometrics SUBJECTIVE: Patient Reason for Visit: The pain has gotten better by 80% if wearing the boot and it is more painful if not wearing the boot. Usability is 50% better. Does not use the cane as much when walking at home but uses when out in the community. Pain: Pain Pain Level: 5 Pain Location: Heel - Left, Ankle - Left OBJECTIVE MEASURES WITH LEVEL OF FUNCTION: LE AROM L Ankle Dorsiflexion: 10 Degrees L Ankle Plantar Flexion: 55 Degrees TREATMENT: Therapeutic Exercise: 2: Ankle pumps x 10 3: Ankle EV/INV x 10 4: Ankle DF/PF in long sitting 1x10 5: PF isometric against PT hand (headboard) 2 x 10 holding 8 sec each (given for home) 6: Standing Runners stretch 2 x 30 seconds (Given for home) 7: Supine calf stretch 2 x 30 seconds Skilled Intervention: Patient was educated in proper exercise technique and purpose for exercises. Correct performance of therapeutic exercises was facilitated with verbal and visual cuing. Billing Therapeutic Exercise Treatment Minutes: 40 Total Treatment Time Minutes (timed/untimed): 40 Shahriar Che PT [facility] 06-26-2022 History of Presen t illness Narrative Episode Visit Count: 7 Therapist That Will Accept/Oversee The Plan Of Care: Shahriar Che Start of Care Date: 05/08/22 Onset Date: 04/29/22 Patient Identified by Name and Date of : Yes REHABILITATION AND SPORTS THERAPY PHYSICAL THERAPY TREATMENT NOTE ASSESSMENT: Valentín Walker tolerated the session with no issues. She demonstrated improvements in muscle/tendon sensitivity to ankle ROM and improved AROM observed. The patient will continue to benefit from ongoing skilled physical therapy to progress toward set goals. PLAN FOR NEXT VISIT: PF isometrics SUBJECTIVE: Patient Reason for Visit: The pain has gotten better by 80% if wearing the boot and it is more painful if not wearing the boot. Usability is 50% better. Does not use the cane as much when walking at home but uses when out in the community. Pain: Pain Pain Level: 5 Pain Location: Heel - Left, Ankle - Left OBJECTIVE MEASURES WITH LEVEL OF FUNCTION: LE AROM L Ankle Dorsiflexion: 10 Degrees L Ankle Plantar Flexion: 55 Degrees TREATMENT: Therapeutic Exercise: 2: Ankle pumps x 10 3: Ankle EV/INV x 10 4: Ankle DF/PF in long sitting 1x10 5: PF isometric against PT hand (headboard) 2 x 10 holding 8 sec each (given for home) 6: Standing Runners stretch 2 x 30 seconds (Given for home) 7: Supine calf stretch 2 x 30 seconds Skilled Intervention: Patient was educated in proper exercise technique and purpose for exercises. Correct performance of therapeutic exercises was facilitated with verbal and visual cuing. Billing Therapeutic Exercise Treatment Minutes: 40 Total Treatment Time Minutes (timed/untimed): 40 Shahriar Che PT documented in this encounter [facility] 06-18-2022 Miscellaneous Notes I spoke with patient and scheduled follow up with Nora Craft CNP 07/25/2022 Appointment reminder mailed Patient called and left a message that her US is scheduled 07/04/2022 and she would like to make an appointment. I called patient and left a message returning her call. Anitha Davison Asst Reminder letter mailed that patient is due for US and OV 06/2022 Anitha Davison Asst ----- Message from Anitha Davison Asst sent at 12/17/2021 4:20 PM EDT ----- Regardinm US and OV -due 06/2022 Next ultrasound for June 2022 has been ordered. Please call the office to schedule this and a follow-up office visit at that time documented in this encounter [facility] 06-11-2022 Note Patient Outreach (IN TMMN) VALENTÍN WALKER ([id number]) 1965 F Date Time Provider Department 06/11/22 MARGI SERRANO During your visit today, we recorded the following information about you: Allergies As of Date: 06/11/2022 Noted Allergy Reaction CODEINE 09/18/2009 14 - Other: See Comments Comments: childhood NIASPAN (NIACIN) 04/04/2011 5 - Intolerance PERCODAN (OXYCODONE HCL-OXYCODONE*09/18/2009 11 - Vomiting Date Reviewed: 04/30/2022 Reviewed by: Mara Olson MA - Fully Assessed Visit Diagnosis:Encounter for screening mammogram for breast cancer [Z12.31] Order(s):[facility] SCREENING [0901981] Order #: [id number] FUTURE Prescriptions as of 06/16/2022 - doxepin capsule 10 mg take 1 capsule by mouth at bedtime - lisinopril-hydroCHLOROthiazide (PRINZIDE,ZESTORETIC) 10-12.5 mg per tablet take 1 tablet by mouth once daily - atorvastatin (LIPITOR) 20 mg tablet take 1 tablet by mouth once daily - glimepiride (AMARYL) 1 mg tablet Take 1 tablet by mouth daily with breakfast. - metFORMIN (GLUCOPHAGE) 500 mg tablet Take 1 tablet by mouth twice daily with meals. - CPAP/BIPAP/OTHER Type .CPAPSettings into a note to see current settings/supplies/DME information. - ursodiol (ACTIGALL) 300 mg capsule take 2 capsules by mouth three times a day - tiZANidine (ZANAFLEX) 4 mg tablet Take 1 tablet by mouth twice daily as needed. - cholestyramine (QUESTRAN) 4 gram packet Take 1 Packet by mouth three times daily with meals. Take by mouth as directed. - blood sugar diagnostic (BLOOD GLUCOSE TEST) test strip Test blood sugar(s) 1 times daily. Dx: Type 2 DM - Controlled E11.9 Insulin: No - Lancets lancets Test blood sugar(s) 1 times daily. Dx: Type 2 DM - Controlled E11.9 Insulin: No - Blood-Glucose Meter monitoring kit Glucose Meter of Choice - Kit - Dx: Type 2 DM - Controlled E11.9, no insulin - CPAP autoPAP 10-20 cmH2O, mask, tubing, filters, heated humidity, lifetime supplies. Please fax 30 day compliance download to [phone] ([place]). Dx: SIA. Old machine broke. - COMPOUNDED PRESCRIPTION CPAP @ 13 cm of water with humidification. Mask (per patient preference) optional chin strap (if indicated) , filters, tubing, humidifier and lifetime supplies. Dx. SIA 327.23 - DULoxetine (CYMBALTA) 60 mg capsule Take 1 capsule by mouth once daily. Meds Comments as of 02/03/2015: Patient currently using Plexus. Problem List As Of Date 06/11/2022 Noted Resolved Obstructive sleep apnea on CPAP [G47.33, Z99.89]09/18/2009 Essential hypertension [I10] 09/18/2009 Mixed hyperlipidemia [E78.2] 09/18/2009 Pre-diabetes [R73.03] 01/30/2010 12/24/2011 Osteoarth NOS-l/leg [SSH6378] 02/25/2010 Other joint derangement, not elsewhere classifi*02/25/2010 Chondromalacia patella 04/16/2010 Diabetes mellitus type 2, controlled, without c*08/07/2011 Bilateral low back pain with left-sided sciatic*02/03/2015 Obesity, Class III, BMI >= 40 (morbid obesity) *04/23/2017 Primary biliary cholangitis (HCC) [K74.3] 11/22/2020 Chronic liver disease [K76.9] 11/22/2020 Tendonitis, Achilles, left [M76.62] 05/08/2022 Encounter Status:Closed by BRIE PHAN on 06/16/22 [facility] 06-10-2022 Note HNO ID: [id number] Author: Shahriar Che PT Service: ? Author Type: Physical Therapist Type: Progress Notes Filed: 06/10/2022 1:39 PM Note Text: Episode Visit Count: 6 Therapist That Will Accept/Oversee The Plan Of Care: Shahriar Che Start of Care Date: 05/08/22 Onset Date: 04/29/22 Patient Identified by Name and Date of : Yes REHABILITATION AND SPORTS THERAPY PHYSICAL THERAPY PROGRESS REPORT PLAN OF CARE UPDATE: Assessment: Valentín Walker demonstrates difficulty with standing, walking, stair negotiation, physical activities, and squatting and improvements in pain levels and independence with the HEP. She has progressed toward goals. Patient continues to present with impairments in ADL's, gait, independence in exercise, overall function, range of motion, and strength that interfere with walking, stair negotiation . Current prognosis is Good due to: current objective clinical presentation, good overall health status . She will benefit from continued skilled therapy services to meet the updated goals for this plan of care as noted below. Goals updated 06/10/2022 Goals for Episode of Care: created on 05/08/22 through 08/28/22 Loving in home exercise program. - Met so far Perform walking without pain. - Not met, will continue Increase ROM of the L ankle to 16 degrees of DF for normal joint mechanics when walking in 8 weeks or less - Progressing slowly, will continue Pt will demo SL heel raise with 2/10 pain or less in 4 months or less for ease of walking - Not Met, will continue Normal gait. - Not met, will continue Patient Goals: Return to walking normally Patient Goals: Return to walking normally Planned Interventions, Frequency, and Duration: 1x/week, 3 weeks Total Number of Visits Planned: 3 Patient to be seen for Therapeutic exercise (90811), Neuromuscular re-education (72100), Manual therapy (06506), Self-senior living management (08454), Gait Training (20606), Patient/Family/Caregiver Education PLAN FOR NEXT VISIT: Assess symptoms. ankle AROM exercises. achilles isometrics. SUBJECTIVE: Patient Reason for Visit: Pt states the last time she was in the pain was horrible. Right now she is having okay days and not okay days. Still using carts to assist her at [facility]. Patient Goals: Return to walking normally Functional Limitations: walking, stair negotiation Prior Level of Function: Independent without limitations Intake Information: Prescription present Previous Treatment: Steroids Falls Interview: No positive findings with falls interview Pain: Pain Pain Level: 2 Pain Location: Heel - Left, Ankle - Left Description: Aching Post Treatment Pain Post Treatment Pain Level: No Change Post Treatment Pain Location: Heel - Left PROMIS Scales Higher is Better 05/01/2020 GH Physical - Score 37.4 GH Physical - Percentile 10 % GH Mental - Score 43.5 GH Mental - Percentile 26 % T-scores: mean of general population = 50. 5 points is clinically meaningfully difference Percentiles provide an indication of how the patient's score ranks in relation to the general population. Higher percentile rankings indicate better function/quality of life. 50th percentile is the average of the general population and indicates half of respondents had a worse score. T-scores: mean of general population = 50. 5 points is clinically meaningfully difference Percentiles provide an indication of how the patient's score ranks in relation to the general population. Higher percentile rankings indicate better function/quality of life. 50th percentile is the average of the general population and indicates half of respondents had a worse score. OBJECTIVE MEASURES WITH LEVEL OF FUNCTION: Ankle Observations L Swelling: Minimal at this time L Ankle Palpation Tenderness: Achilles tendon LE AROM L Ankle Dorsiflexion: 2 Degrees L Ankle Plantar Flexion: 55 Degrees L Ankle Inversion: 20 L Ankle Eversion: 15 Lumbar Spine Evaluated?: Yes LE Strength L Ankle Dorsiflexion (L4): 3-/5 L Ankle Plantar Flexion: 3/5 L Ankle Inversion: 3/5 L Ankle Eversion: 3/5 Gait Gait: Modified Independent Gait Distance (feet): 30 Gait Device: Cane Gait Deviations: Left Lower Extremity Gait Deviations Left Lower Extremity: Step length decreased, Stance time decreased, Weight bearing decreased TREATMENT: Therapeutic Exercise: 1: All objective measures 2: Ankle pumps x 10 3: Ankle EV/INV x 10 Skilled Intervention: Patient was educated in proper exercise technique and purpose for exercises. Correct performance of therapeutic exercises was facilitated with verbal and visual cuing. Billing Therapeutic Exercise Treatment Minutes: 32 Manual TherapyTreatment Minutes: 10 Total Treatment Time Minutes (timed/untimed): 42 Shahriar Che PT [facility] 06-10-2022 History of Presen t illness Narrative Episode Visit Count: 6 Therapist That Will Accept/Oversee The Plan Of Care: Shahriar Che Start of Care Date: 05/08/22 Onset Date: 04/29/22 Patient Identified by Name and Date of : Yes REHABILITATION AND SPORTS THERAPY PHYSICAL THERAPY PROGRESS REPORT PLAN OF CARE UPDATE: Assessment: Valentín Walker demonstrates difficulty with standing, walking, stair negotiation, physical activities, and squatting and improvements in pain levels and independence with the HEP. She has progressed toward goals. Patient continues to present with impairments in ADL's, gait, independence in exercise, overall function, range of motion, and strength that interfere with walking, stair negotiation . Current prognosis is Good due to: current objective clinical presentation, good overall health status . She will benefit from continued skilled therapy services to meet the updated goals for this plan of care as noted below. Goals updated 06/10/2022 Goals for Episode of Care: created on 05/08/22 through 08/28/22 Loving in home exercise program. - Met so far Perform walking without pain. - Not met, will continue Increase ROM of the L ankle to 16 degrees of DF for normal joint mechanics when walking in 8 weeks or less - Progressing slowly, will continue Pt will demo SL heel raise with 2/10 pain or less in 4 months or less for ease of walking - Not Met, will continue Normal gait. - Not met, will continue Patient Goals: Return to walking normally Patient Goals: Return to walking normally Planned Interventions, Frequency, and Duration: 1x/week, 3 weeks Total Number of Visits Planned: 3 Patient to be seen for Therapeutic exercise (16701), Neuromuscular re-education (89101), Manual therapy (03208), Self-senior living management (96192), Gait Training (51054), Patient/Family/Caregiver Education PLAN FOR NEXT VISIT: Assess symptoms. ankle AROM exercises. achilles isometrics. SUBJECTIVE: Patient Reason for Visit: Pt states the last time she was in the pain was horrible. Right now she is having okay days and not okay days. Still using carts to assist her at [facility]. Patient Goals: Return to walking normally Functional Limitations: walking, stair negotiation Prior Level of Function: Independent without limitations Intake Information: Prescription present Previous Treatment: Steroids Falls Interview: No positive findings with falls interview Pain: Pain Pain Level: 2 Pain Location: Heel - Left, Ankle - Left Description: Aching Post Treatment Pain Post Treatment Pain Level: No Change Post Treatment Pain Location: Heel - Left PROMIS Scales Higher is Better 05/01/2020 GH Physical - Score 37.4 GH Physical - Percentile 10 % GH Mental - Score 43.5 GH Mental - Percentile 26 % T-scores: mean of general population = 50. 5 points is clinically meaningfully difference Percentiles provide an indication of how the patient's score ranks in relation to the general population. Higher percentile rankings indicate better function/quality of life. 50th percentile is the average of the general population and indicates half of respondents had a worse score. T-scores: mean of general population = 50. 5 points is clinically meaningfully difference Percentiles provide an indication of how the patient's score ranks in relation to the general population. Higher percentile rankings indicate better function/quality of life. 50th percentile is the average of the general population and indicates half of respondents had a worse score. OBJECTIVE MEASURES WITH LEVEL OF FUNCTION: Ankle Observations L Swelling: Minimal at this time L Ankle Palpation Tenderness: Achilles tendon LE AROM L Ankle Dorsiflexion: 2 Degrees L Ankle Plantar Flexion: 55 Degrees L Ankle Inversion: 20 L Ankle Eversion: 15 Lumbar Spine Evaluated?: Yes LE Strength L Ankle Dorsiflexion (L4): 3-/5 L Ankle Plantar Flexion: 3/5 L Ankle Inversion: 3/5 L Ankle Eversion: 3/5 Gait Gait: Modified Independent Gait Distance (feet): 30 Gait Device: Cane Gait Deviations: Left Lower Extremity Gait Deviations Left Lower Extremity: Step length decreased, Stance time decreased, Weight bearing decreased TREATMENT: Therapeutic Exercise: 1: All objective measures 2: Ankle pumps x 10 3: Ankle EV/INV x 10 Skilled Intervention: Patient was educated in proper exercise technique and purpose for exercises. Correct performance of therapeutic exercises was facilitated with verbal and visual cuing. Billing Therapeutic Exercise Treatment Minutes: 32 Manual TherapyTreatment Minutes: 10 Total Treatment Time Minutes (timed/untimed): 42 Shahriar Che PT documented in this encounter [facility] 06-02-2022 Miscellaneous Notes Pharmacy faxed requesting the following refill. Requested Prescriptions Pending Prescriptions Disp Refills doxepin capsule 10 mg [Pharmacy Med Name: DOXEPIN 10 MG CAPSULE] 90 capsule 1 Sig: take 1 capsule by mouth at bedtime Patient's Last Office Visit: 07/05/2021 Patient Phone numbers: [phone] (home) Request is for script(s) to be escript to pharmacy. 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 Author Type: Physical Therapist Type: Progress Notes Filed: 05/29/2022 11:28 AM Note Text: Episode Visit Count: 5 Therapist That Will Accept/Oversee The Plan Of Care: Shahriar Che Start of Care Date: 05/08/22 Onset Date: 04/29/22 Patient Identified by Name and Date of : Yes REHABILITATION AND SPORTS THERAPY PHYSICAL THERAPY TREATMENT NOTE ASSESSMENT: Valentín Walker tolerated the session with increased symptoms. She demonstrated difficulty with PF and DF ROM. Increased rest breaks given between exercises this visit due to pain and zinging in L lateral ankle.The patient will continue to benefit from ongoing skilled physical therapy to progress toward set goals. PLAN FOR NEXT VISIT: Pt is very tender to palpation and exercises need to be gentle. ROM is still limited and needs worked on SUBJECTIVE: Patient Reason for Visit: Pt reports that she didn't sleep well and feels tired today. Pt reports that her L ankle feels weakand just doesn't feel right. Pt reports still intermittent pain in the heel. Pain: Pain Pain Level: 4 Pain Location: Heel - Left, Ankle - Left Post Treatment Pain Post Treatment Pain Level: 6 Post Treatment Pain Location: Heel - Left Post Treatment Pain Description: Sore, Tingling, Stabbing OBJECTIVE MEASURES WITH LEVEL OF FUNCTION: Pt limited with ankle PF and DF this visit. TREATMENT: Therapeutic Exercise: 1: Ankle pumps 2 x 10 2: Ankle CW/CCW circles 2 x 10 each 3: Seated inversion and eversion 2x10 each direction 4: Ankle DF/PF in long sitting 1x10 5: Long sitting gastroc stretch 2x30 seconds L (reproduced pain in posterior heel) 6: Supine SLR 2x10 LLE (zinging sensation in heel and lateral ankle) 7: Ankle Aplhabet A-Z x 1 in long sitting Skilled Intervention: Patient was educated in proper exercise technique and purpose for exercises. Skilled judgment was provided in selection of appropriate interventions. Additional time necessary for rest breaks due to pain and zinging in L lateral ankle . Billing Therapeutic Exercise Treatment Minutes: 38 Total Treatment Time Minutes (timed/untimed): 38 MIRIAM Aponte, PT [facility] 05-29-2022 History of Presen t illness Narrative Episode Visit Count: 5 Therapist That Will Accept/Oversee The Plan Of Care: Shahriar Che Start of Care Date: 05/08/22 Onset Date: 04/29/22 Patient Identified by Name and Date of : Yes REHABILITATION AND SPORTS THERAPY PHYSICAL THERAPY TREATMENT NOTE ASSESSMENT: Valentín Walker tolerated the session with increased symptoms. She demonstrated difficulty with PF and DF ROM. Increased rest breaks given between exercises this visit due to pain and zinging in L lateral ankle.The patient will continue to benefit from ongoing skilled physical therapy to progress toward set goals. PLAN FOR NEXT VISIT: Pt is very tender to palpation and exercises need to be gentle. ROM is still limited and needs worked on SUBJECTIVE: Patient Reason for Visit: Pt reports that she didn't sleep well and feels tired today. Pt reports that her L ankle feels weakand just doesn't feel right. Pt reports still intermittent pain in the heel. Pain: Pain Pain Level: 4 Pain Location: Heel - Left, Ankle - Left Post Treatment Pain Post Treatment Pain Level: 6 Post Treatment Pain Location: Heel - Left Post Treatment Pain Description: Sore, Tingling, Stabbing OBJECTIVE MEASURES WITH LEVEL OF FUNCTION: Pt limited with ankle PF and DF this visit. TREATMENT: Therapeutic Exercise: 1: Ankle pumps 2 x 10 2: Ankle CW/CCW circles 2 x 10 each 3: Seated inversion and eversion 2x10 each direction 4: Ankle DF/PF in long sitting 1x10 5: Long sitting gastroc stretch 2x30 seconds L (reproduced pain in posterior heel) 6: Supine SLR 2x10 LLE (zinging sensation in heel and lateral ankle) 7: Ankle Aplhabet A-Z x 1 in long sitting Skilled Intervention: Patient was educated in proper exercise technique and purpose for exercises. Skilled judgment was provided in selection of appropriate interventions. Additional time necessary for rest breaks due to pain and zinging in L lateral ankle . Billing Therapeutic Exercise Treatment Minutes: 38 Total Treatment Time Minutes (timed/untimed): 38 MIRIAM Aponte PT documented in this encounter [facility] 05-26-2022 Note HNO ID: [id number] Author: Shahriar Che PT Service: ? Author Type: Physical Therapist Type: Progress Notes Filed: 05/26/2022 1:46 PM Note Text: Episode Visit Count: 4 Therapist That Will Accept/Oversee The Plan Of Care: Shahriar Che Start of Care Date: 05/08/22 Onset Date: 04/29/22 Patient Identified by Name and Date of : Yes REHABILITATION AND SPORTS THERAPY PHYSICAL THERAPY TREATMENT NOTE ASSESSMENT: Valentín Walker tolerated the session with fatigue and expected muscle soreness. She demonstrated difficulty with BAPS board. The patient will continue to benefit from ongoing skilled physical therapy to progress toward set goals. PLAN FOR NEXT VISIT: Pt is very tender to palpation and exercises need to be gentle. ROM is still limited and needs worked on SUBJECTIVE: Patient Reason for Visit: Pt reports that her ankle is not any worse, but not where she would like it to be. Pt reports compliance with HEP, causes discomfort in L ankle. Pt states that ice helps if her ankle is really throbbing, but other than that doesn't seem to have much effect. Pain: Pain Pain Level: 2 (increases to 6-7/10 by end of the day) Pain Location: Heel - Left Description: Sore Post Treatment Pain Post Treatment Pain Location: Heel - Left Post Treatment Pain Description: Sore Post Treatment Symptoms: Pt denied increase in pain, but stated ankle was more sore and throbbing at end of session. OBJECTIVE MEASURES WITH LEVEL OF FUNCTION: Pt only able to move ankle in very small range with BAPS board. TREATMENT: Therapeutic Exercise: 1: Ankle pumps 2 x 10 2: Ankle CW/CCW circles 2 x 10 each 3: Ankles circles on Baps board 1 x 10 CW (stopped due to increased pulling in posterior ankle/heel) 4: Ankle PF/DF BAPS board x 10 5: Ankle EV/INV Baps board x 10 6: Supine SLR 3x10 LLE 7: Sidelying hip abd 3 x 10 8: Sidleying clamshells 2 x 10 9: Sitting ankle alphabet x1 A-Z 10: Standing lumbar extension at edge of table x5 (performed due to leg length difference cause by use of boot.) Skilled Intervention: Patient was educated in proper exercise technique and purpose for exercises. Skilled judgment was provided in selection of appropriate interventions. Correct performance of therapeutic exercises was facilitated with verbal and visual cuing. [facility] Management: 1: *Education on elevating LLE with prolonged standing in [facility] ot decrease low back pain and increased weight on BLE with uneven stance due to boot. Skilled Intervention: Skilled judgment in the selection of proper modification for activity of daily living/home management based on clinical presentation, deficits, and needs. Billing Therapeutic Exercise Treatment Minutes: 38 Self-Care/Home Management Treatment Minutes: 2 Total Treatment Time Minutes (timed/untimed): 40 Angelita Bentley, CLASSIFIED ADVERTISING MANAGER Shahriar Che, PT [facility] 05-26-2022 History of Presen t illness Narrative Episode Visit Count: 4 Therapist That Will Accept/Oversee The Plan Of Care: Shahriar Che Start of Care Date: 05/08/22 Onset Date: 04/29/22 Patient Identified by Name and Date of : Yes REHABILITATION AND SPORTS THERAPY PHYSICAL THERAPY TREATMENT NOTE ASSESSMENT: Valentín Walker tolerated the session with fatigue and expected muscle soreness. She demonstrated difficulty with BAPS board. The patient will continue to benefit from ongoing skilled physical therapy to progress toward set goals. PLAN FOR NEXT VISIT: Pt is very tender to palpation and exercises need to be gentle. ROM is still limited and needs worked on SUBJECTIVE: Patient Reason for Visit: Pt reports that her ankle is not any worse, but not where she would like it to be. Pt reports compliance with HEP, causes discomfort in L ankle. Pt states that ice helps if her ankle is really throbbing, but other than that doesn't seem to have much effect. Pain: Pain Pain Level: 2 (increases to 6-7/10 by end of the day) Pain Location: Heel - Left Description: Sore Post Treatment Pain Post Treatment Pain Location: Heel - Left Post Treatment Pain Description: Sore Post Treatment Symptoms: Pt denied increase in pain, but stated ankle was more sore and throbbing at end of session. OBJECTIVE MEASURES WITH LEVEL OF FUNCTION: Pt only able to move ankle in very small range with BAPS board. TREATMENT: Therapeutic Exercise: 1: Ankle pumps 2 x 10 2: Ankle CW/CCW circles 2 x 10 each 3: Ankles circles on Baps board 1 x 10 CW (stopped due to increased pulling in posterior ankle/heel) 4: Ankle PF/DF BAPS board x 10 5: Ankle EV/INV Baps board x 10 6: Supine SLR 3x10 LLE 7: Sidelying hip abd 3 x 10 8: Sidleying clamshells 2 x 10 9: Sitting ankle alphabet x1 A-Z 10: Standing lumbar extension at edge of table x5 (performed due to leg length difference cause by use of boot.) Skilled Intervention: Patient was educated in proper exercise technique and purpose for exercises. Skilled judgment was provided in selection of appropriate interventions. Correct performance of therapeutic exercises was facilitated with verbal and visual cuing. [facility] Management: 1: *Education on elevating LLE with prolonged standing in [place] ot decrease low back pain and increased weight on BLE with uneven stance due to boot. Skilled Intervention: Skilled judgment in the selection of proper modification for activity of daily living/home management based on clinical presentation, deficits, and needs. Billing Therapeutic Exercise Treatment Minutes: 38 Self-Care/Home Management Treatment Minutes: 2 Total Treatment Time Minutes (timed/untimed): 40 Angelita Bentley, MIRIAM Che PT documented in this encounter [facility] 05-22-2022 Note HNO ID: [id number] Author: Shahriar Che PT Service: ? Author Type: Physical Therapist Type: Progress Notes Filed: 05/22/2022 5:56 PM Note Text: Episode Visit Count: 3 Therapist That Will Accept/Oversee The Plan Of Care: Shahriar Che Start of Care Date: 05/08/22 Onset Date: 04/29/22 Patient Identified by Name and Date of : Yes REHABILITATION AND SPORTS THERAPY PHYSICAL THERAPY TREATMENT NOTE ASSESSMENT: Valentín Walker tolerated the session with some pain with resisted PF against YTB so this was stopped. She demonstrated difficulty with continued pain of the L heel. The patient will continue to benefit from ongoing skilled physical therapy to progress toward set goals. PLAN FOR NEXT VISIT: Pt is very tender to palpation and exercises need to be gentle. ROM is still limited and needs worked on SUBJECTIVE: Patient Reason for Visit: Swelling after the last massage. Was more painful but better now. Walking is still limited and uses cane Pain: Pain Pain Level: 2 Pain Location: Heel - Left Description: Sore Post Treatment Pain Post Treatment Pain Level: (More sore) Post Treatment Pain Location: Heel - Left Post Treatment Pain Description: Sore OBJECTIVE MEASURES WITH LEVEL OF FUNCTION: TTP of L heel TREATMENT: Therapeutic Exercise: 1: Ankle pumps x 10 2: Ankle CW/CCW circles x 10 each 3: Ankles circles on Baps board x 10 each 4: Ankle PF/DF BAPS board x 10 5: Ankle EV/INV Baps board x 10 6: Supine gastroc stretch (very light) strap assist 2 x 10 with 10 sec holds 7: Advised pt briefly to use an ice bucket for swelling of the foot/ankle Skilled Intervention: Patient was educated in proper exercise technique and purpose for exercises. Correct performance of therapeutic exercises was facilitated with verbal and visual cuing. Billing Therapeutic Exercise Treatment Minutes: 40 Total Treatment Time Minutes (timed/untimed): 40 Shahriar Che PT [facility] 05-22-2022 History of Presen t illness Narrative Episode Visit Count: 3 Therapist That Will Accept/Oversee The Plan Of Care: Shahrair Che Start of Care Date: 05/08/22 Onset Date: 04/29/22 Patient Identified by Name and Date of : Yes REHABILITATION AND SPORTS THERAPY PHYSICAL THERAPY TREATMENT NOTE ASSESSMENT: Valentín Walker tolerated the session with some pain with resisted PF against YTB so this was stopped. She demonstrated difficulty with continued pain of the L heel. The patient will continue to benefit from ongoing skilled physical therapy to progress toward set goals. PLAN FOR NEXT VISIT: Pt is very tender to palpation and exercises need to be gentle. ROM is still limited and needs worked on SUBJECTIVE: Patient Reason for Visit: Swelling after the last massage. Was more painful but better now. Walking is still limited and uses cane Pain: Pain Pain Level: 2 Pain Location: Heel - Left Description: Sore Post Treatment Pain Post Treatment Pain Level: (More sore) Post Treatment Pain Location: Heel - Left Post Treatment Pain Description: Sore OBJECTIVE MEASURES WITH LEVEL OF FUNCTION: TTP of L heel TREATMENT: Therapeutic Exercise: 1: Ankle pumps x 10 2: Ankle CW/CCW circles x 10 each 3: Ankles circles on Baps board x 10 each 4: Ankle PF/DF BAPS board x 10 5: Ankle EV/INV Baps board x 10 6: Supine gastroc stretch (very light) strap assist 2 x 10 with 10 sec holds 7: Advised pt briefly to use an ice bucket for swelling of the foot/ankle Skilled Intervention: Patient was educated in proper exercise technique and purpose for exercises. Correct performance of therapeutic exercises was facilitated with verbal and visual cuing. Billing Therapeutic Exercise Treatment Minutes: 40 Total Treatment Time Minutes (timed/untimed): 40 Shahriar Che PT documented in this encounter [facility] 05-13-2022 History of Presen t illness Narrative Episode Visit Count: 2 Therapist That Will Accept/Oversee The Plan Of Care: Shahriar Che Start of Care Date: 05/08/22 Onset Date: 04/29/22 Patient Identified by Name and Date of : Yes REHABILITATION AND SPORTS THERAPY PHYSICAL THERAPY TREATMENT NOTE ASSESSMENT: Valentín Walker tolerated the session with no issues. She demonstrated improvements in ankle ROM. The patient will continue to benefit from ongoing skilled physical therapy to progress toward set goals. PLAN FOR NEXT VISIT: Assess ankle ROM. Possibly trial gastroc strengthening if tolerated SUBJECTIVE: Patient Reason for Visit: The swelling is better and feels as though she has better motion at the ankle. Walking in the boot is better now that she knows she needs to pump up the boot. Pain: Pain Pain Level: (Not rated) Pain Location: Heel - Left Post Treatment Pain Post Treatment Pain Level: ( More Sore ) Post Treatment Pain Location: Heel - Left Post Treatment Pain Description: Sore OBJECTIVE MEASURES WITH LEVEL OF FUNCTION: LE AROM L Ankle Dorsiflexion: 0 Degrees TREATMENT: Therapeutic Exercise: 1: Ankle pumps x 10 2: Ankle CW/CCW circles x 10 each 3: Supine SLR x 10 4: Sidelying hip abd 3 x 10 5: Sidleying clam 2 x 10 6: Ankle DF stretch x 5 holding 5 Skilled Intervention: Patient was educated in proper exercise technique and purpose for exercises. Correct performance of therapeutic exercises was facilitated with verbal and visual cuing. Manual Therapy: 1: Gentle STM finger gliding over gastroc muscle belly x 8 min 2: Edema massage with pt in supine and LLE elevated Skilled Intervention: Manual skills to improve joint mobility, ROM, and decrease pain. Utilized anatomy knowledge of the therapist, and assessment of patient's response to intervention. Billing Therapeutic Exercise Treatment Minutes: 29 Manual TherapyTreatment Minutes: 10 Total Treatment Time Minutes (timed/untimed): 39 Shahriar Che PT documented in this encounter [facility] 05-08-2022 History of Presen t illness Narrative Episode Visit Count: 1 Therapist That Will Accept/Oversee The Plan Of Care: Shahriar Che Start of Care Date: 05/08/22 Onset Date: 04/29/22 Patient Identified by Name and Date of : Yes REHABILITATION AND SPORTS THERAPY PHYSICAL THERAPY EVALUATION PLAN OF CARE: Assessment: Valentín Walker presents with chief complaint of L heel pain that interferes with walking;stair negotiation . She presents with impairments in ADL's, gait, independence in exercise, range of motion, strength , and symptom management. Prognosis for therapy is Good due to: current objective clinical presentation;good overall health status . Pain with palpation, stretching, and activation of the L gastrocnemius at the insertion of the achilles tendon. She will benefit from skilled therapy services to meet the goals established for this plan of care as noted below. Goals for Episode of Care: created on 05/08/22 through 08/28/22 Loving in home exercise program. Perform walking without pain. Increase ROM of the L ankle to 16 degrees of DF for normal joint mechanics when walking in 8 weeks or less Pt will demo SL heel raise with 2/10 pain or less in 4 months or less for ease of walking Normal gait. Patient Goals: Return to walking normally Planned Interventions, Frequency, and Duration: Current Frequency: (2x/week for 2 weeks then 1x/week for 2 weeks) Duration: 4 weeks Total Number of Visits Planned: 6 Planned Treatment Interventions: Therapeutic exercise (87505);Neuromuscular re-education (99087);Manual therapy (87129);Self-senior living management (44330);Gait Training (54183);Patient/Family/Caregiver Education PLAN FOR NEXT VISIT: Assess reaction to HEP. STM over L gastroc muscle belly and edema massage. Ankle AROM Patient demonstrates good understanding of plan of care and treatment. The above goals and plan of care were discussed and agreed upon by patient/family. SUBJECTIVE: Valentín Walker is a 57 year old female seen today for L heel pain. Took grandson to [employer] apr 28. The next mornign pt had bad pain. By Wed the foot swelled and the pain has not let up. Wearing a boot. Does have a night splint. getting around better now . Did have tingling but this is better since the swelling has gone down. Did get an exercise sheet from MD. Patient Goals: Return to walking normally Functional Limitations: walking;stair negotiation Prior Level of Function: Independent without limitations Relevant History Preferred Language: [place] Employment: Unemployed Intake Information: Prescription present Previous Treatment: Steroids (heel lift) Falls Interview: No positive findings with falls interview Pain: Pain Pain Level: 4 (when sitting; 7/10 when walking) Pain Location: Heel - Left Description: Aching PROMIS Scales Higher is Better 05/01/2020 GH Physical - Score 37.4 GH Physical - Percentile 10 % GH Mental - Score 43.5 GH Mental - Percentile 26 % T-scores: mean of general population = 50. 5 points is clinically meaningfully difference Percentiles provide an indication of how the patient's score ranks in relation to the general population. Higher percentile rankings indicate better function/quality of life. 50th percentile is the average of the general population and indicates half of respondents had a worse score. T-scores: mean of general population = 50. 5 points is clinically meaningfully difference Percentiles provide an indication of how the patient's score ranks in relation to the general population. Higher percentile rankings indicate better function/quality of life. 50th percentile is the average of the general population and indicates half of respondents had a worse score. OBJECTIVE MEASURES WITH LEVEL OF FUNCTION: Ankle Observations L Ankle Presents with: Swelling L Swelling: moderate levels of swelling at dorsum of foot and anterior/posterior TC joint L Ankle Palpation Tenderness: Anterior talofibular ligament;Lateral malleolus;Achilles tendon Ankle Brace/Support: Air cast LE AROM R LE AROM: WFL L LE AROM: WFL (Unless otherwise noted) L Ankle Dorsiflexion: -5 Degrees (even less when knee is straight) L Ankle Plantar Flexion: 47 Degrees L Ankle Inversion: 10 L Ankle Eversion: 5 LE Flexibility Flexibility: Gastrocnemius Flexibility R Gastrocnemius Flexibility: WNL L Gastrocnemius Flexibility: Severe tightness LE Strength L Ankle Dorsiflexion (L4): 3-/5 L Ankle Plantar Flexion: 3-/5 Gait Weight Bearing Status: WBAT Gait: Modified Independent Gait Distance (feet): 30 Gait Device: Cane Gait Deviations: Left Lower Extremity Gait Deviations Left Lower Extremity: Step length decreased;Stance time decreased;Weight bearing decreased Education: Education Learning Preferences: Demonstration;Explanation;Perfor morgan;Printed Materials Barriers: None Learning/educational needs: Home exercise program;Plan of Care Education Provided: Yes, see treatment interventions for education provided Education Provided To: Patient Education Mode/Type: Demonstration;Explanation/Discus jake;Literature/Printed Materials;Performance Response to Education/Teach Back: States/Identifies;Return Demonstration TREATMENT: PT Treatment Interventions: Therapeutic Exercise Evaluation Therapeutic Exercise: 1: Discussed exam findings and plan of course. Discussed symptoms of achilles tandonitis and how swelling can cause tingling in the body when nerve are compressed. Discussed purpose of the HEP and handout was provided. Discussed icing the ankle twice a day for 10 minutes in an elevated position. 2: Supine SLR x 10 3: Ankle pumps x 10 4: Ankle circles CW/CCW x 10 each Skilled Intervention: Patient was educated in proper exercise technique and purpose for exercises. Skilled judgment was provided in selection of appropriate interventions. Provided written instruction for home exercise program to facilitate proper performance and compliance. Correct performance of therapeutic exercises was facilitated with verbal and visual cuing. Billing * Evaluation Low Complexity: 1 Unit Therapeutic Exercise Treatment Minutes: 25 Total Treatment Time Minutes (timed/untimed): 47 Shahriar Che PT documented in this encounter [facility] 05-07-2022 Miscellaneous Notes Received visit summary for evaluation of left foot pain from [facility]. Placed in provider's inbox for review. Route to [place] scanning. documented in this encounter [facility] 05-07-2022 Miscellaneous Notes Received orders from [facility]. Placed in provider's inbox for review. Route to [place] fax documented in this encounter [facility] 05-07-2022 Miscellaneous Notes Received 05/07/[address] [facility]. Placed in provider's inbox for review. Route to CT for scanning. Left foot pain since 04/28/2022 documented in this encounter [facility] 05-02-2022 Miscellaneous Notes Phone call place patient advised (see prior provider encounter) Patient verbalized understanding, agreed with plan of care. Lyubov Rudd LPN Please inform patient that xray did not show any fracture, probable heel spurs Would recommend to follow up with podiatry. Belén Barron APRN.BRANDAN documented in this encounter [facility] 05-01-2022 Miscellaneous Notes Returned patient's call. She was able to get her follow up appointment scheduled. Informed her that Olivia should have the heel wedges, and if she can't find them in stores they are sold on [employer]. Patient verbalized understanding. No further questions at this time. Sent to ortho in error. Forwarded to podiatry pool. Patient called to schedule appointment with scheduling d/t ED visit. Patient has tried to get a heel wedge from [employer], and [employer], none of these businesses have any heel wedges. Patient would like a call back at [phone] to be advised about where she can purchase an heel wedge. Thank you. Rebkeah Mae LPN documented in this encounter [facility] 04-30-2022 History of Presen t illness Narrative Patient presents with: Pain (foot): Left heel pain x 3 days HPI: Left heel pain: Duration: 3 days Location: bottom of the left heel Character: sharp, shooting, and extreme, unable to bear weight Radiation: toes tingling Aggravating: standing and walking Relieving: cane Pain relievers: Motrin Associated: swelling, sore elsewhere from limping Pertinent negatives: Denies known injury, fever PAST MEDICAL HISTORY Diagnosis Date Diabetes (HCC) Eczema Mixed hyperlipidemia Hyperlipidemia Obstructive sleep apnea Snoring Unspecified essential hypertension Essential hypertension MEDICATIONS: lisinopril-hydroCHLOROthiazide (PRINZIDE,ZESTORETIC) 10-12.5 mg per tablet take 1 tablet by mouth once daily atorvastatin (LIPITOR) 20 mg tablet take 1 tablet by mouth once daily glimepiride (AMARYL) 1 mg tablet Take 1 tablet by mouth daily with breakfast. metFORMIN (GLUCOPHAGE) 500 mg tablet Take 1 tablet by mouth twice daily with meals. CPAP/BIPAP/OTHER Type .CPAPSettings into a note to see current settings/supplies/DME information. ursodiol (ACTIGALL) 300 mg capsule take 2 capsules by mouth three times a day doxepin capsule 10 mg take 1 capsule by mouth at bedtime tiZANidine (ZANAFLEX) 4 mg tablet Take 1 tablet by mouth twice daily as needed. cholestyramine (QUESTRAN) 4 gram packet Take 1 Packet by mouth three times daily with meals. Take by mouth as directed. blood sugar diagnostic (BLOOD GLUCOSE TEST) test strip Test blood sugar(s) 1 times daily. Dx: Type 2 DM - Controlled E11.9 Insulin: No (Patient taking differently: Test blood sugar(s) 1 times daily. Dx: Type 2 DM - Controlled E11.9 Insulin: No) Blood-Glucose Meter monitoring kit Glucose Meter of Choice - Kit - Dx: Type 2 DM - Controlled E11.9, no insulin (Patient taking differently: Glucose Meter of Choice - Kit - Dx: Type 2 DM - Controlled E11.9, no insulin) CPAP autoPAP 10-20 cmH2O, mask, tubing, filters, heated humidity, lifetime supplies. Please fax 30 day compliance download to [phone] ([place]). Dx: SIA. Old machine broke. DULoxetine (CYMBALTA) 60 mg capsule Take 1 capsule by mouth once daily. Lancets lancets Test blood sugar(s) 1 times daily. Dx: Type 2 DM - Controlled E11.9 Insulin: No (Patient taking differently: Test blood sugar(s) 1 times daily. Dx: Type 2 DM - Controlled E11.9 Insulin: No) COMPOUNDED PRESCRIPTION CPAP @ 13 cm of water with humidification. Mask (per patient preference) optional chin strap (if indicated) , filters, tubing, humidifier and lifetime supplies. Dx. SIA 327.23 ALLERGIES: ALLERGIES Allergen Reactions Codeine Other: See Comments childhood Niaspan [Niacin] Intolerance Percodan [Oxycodone* Vomiting VITALS: BP 144/58 Pulse 113 Temp 37.3 C (99.2 F) Resp 20 Wt 133.8 kg (295 lb) SpO2 97% BMI 50.61 kg/m PE: Pleasant, in no acute distress. ANKLE: left. Swelling not present. No erythema, ecchymosis, or deformity. Range of motion: inversion - non-painful, eversion - non-painful, dorsiflexion - painful. painful to bear weight. Uses wheelchair to transition to and from xray. Limping gait. Palpation: Medial malleolus non-painful, lateral malleolus non-painful, calcaneus most painful at the posterior inferior aspect. Non-tender at the plantar fascia insertion. ASSESSMENT/PLAN: 1. Pain of left heel - ICD9: 729.5, ICD10: M79.672 - XR CALCANEUS 2V AXIAL/LAT LEFT - small anterior and posterior spurs. No acute fractures. Radiology interpretation is pending. The patient will be notified if there is a significant finding in the report not discussed at the time of the visit. Achilles tendon insertion pain. Placed in walking boot from EC stock. Advised adding a heel wedge. Limited OTC analgesia because of liver disease. Ice as needed. - CONSULT TO PODIATRY or ortho. Roni Ge MD documented in this encounter [facility] 01-20-2022 Miscellaneous Notes Received Cpap supply order from [facility]. Placed in provider's inbox for review. Route to CT fax documented in this encounter [facility] 01-15-2022 Miscellaneous Notes Patient verbalized understanding. Please let patient know that we received her updated sleep study results and re-ordered her CPAP machine and supplies and will forward the documentation to [facility]. Schedule a follow-up visit in the next month of using the new machine/settings with either provider to re-evaluate her symptoms. Luis Velasquez APRN.BRANDAN documented in this encounter [facility] 01-02-2022 Miscellaneous Notes Called pt and informed her she does not need to come in for shingles vaccine. Pt indicated understanding. Please remove pt from schedule. Patient is on nurse visit schedule tomorrow for Shingrix vaccine. Please call patient, she is done with the Shingrix series, has already had two. (It looks like she was scheduled for this way back in June, then ended up getting her vaccine at an office visit with PCP in November, so likely tomorrow's nurse visit just needs canceled). documented in this encounter [facility] 12-31-2021 Miscellaneous Notes Pharmacy verified in Epic Patient has been identified by name and date of : Yes Patient aware RX will be sent to pharmacy. No need to notify patient. Patient phones for refill(s): Requested Prescriptions Pending Prescriptions Disp Refills lisinopril-hydroCHLOROthiazide (PRINZIDE,ZESTORETIC) 10-12.5 mg per tablet [Pharmacy Med Name: LISINOPRIL-HCTZ 10-12.5 MG TAB] 90 tablet 0 Sig: take 1 tablet by mouth once daily metFORMIN (GLUCOPHAGE) 500 mg tablet [Pharmacy Med Name: METFORMIN HCL 500 MG TABLET] 360 tablet 0 Sig: take 2 tablets by mouth twice a day with meals atorvastatin (LIPITOR) 20 mg tablet [Pharmacy Med Name: ATORVASTATIN 20 MG TABLET] 90 tablet 0 Sig: take 1 tablet by mouth once daily Date of last office visit : 12/11/2021 Date of next office visit : 01/03/2022 Last 2 Encounter Wt Readings: Date: Wt: 12/18/2021 132.1 kg (291 lb 3.2 oz) 12/11/2021 131.5 kg (290 lb) Diabetes: Hemoglobin A1C (%) Date Value 02/01/2021 6.4 Cholesterol: Triglyceride (mg/dL) Date Value 02/01/2021 147 HDL Cholesterol (mg/dL) Date Value 02/01/2021 28 LDL Cholesterol (mg/dL) Date Value 02/01/2021 68 ALT (U/L) Date Value 11/12/2020 26 Non HDL Cholesterol (mg/dL) Date Value 02/01/2021 97 Blood Pressure: BUN (mg/dL) Date Value 02/01/2021 9 Creatinine (mg/dL) Date Value 02/01/2021 0.64 Sodium (mmol/L) Date Value 02/01/2021 140 Potassium (mmol/L) Date Value 02/01/2021 4.1 Last 1 Encounter BP Readings: Date: BP: 12/18/2021 134/74 Please advise. Kinga Yoon LPN documented in this encounter [facility] 12-17-2021 Miscellaneous Notes Patient notified via mychart by Dr. De Leon Reminder placed Anitha Choi [employer] ----- Message from Luis De Leon MD sent at 12/12/2021 4:20 PM EDT ----- Stable findings on ultrasound. Next ultrasound for June 2022 has been ordered. Please call the office to schedule this and a follow-up office visit at that time. Labs are ordered as well. [phone] documented in this encounter [facility] 12-11-2021 History of Presen t illness Narrative CHIEF COMPLAINT Patient presents with: new CPAP order HISTORY OF PRESENT ILLNESS Valentín Walker is a 56 year old female who presents here today for follow up management of SIA. I last saw this patient on 07/03/21. SIA Patient had a sleep study in 2012. She has a sleep study coming up Health Maintenance Due for Pneumovax. Due for urine albumin Due for Hep A Due for diabetic foot exam. Due for routine labs. Due for Shingrix series Due for dilated retinal exam. Due for COVID booster Due for mammogram. Labs reviewed. Past medical history, appointments, medications, allergies reviewed. REVIEW OF SYSTEMS Pertinent positives/ negatives: General: Feels well, no fever, no chills, +obesity. HEENT: No sinus congestion, earache, sore throat. Cardiac: No chest pain, palpitations +elevated BP Resp: No cough, wheeze, shortness of breath +SIA GI: No reflux symptoms, food intolerance, bowel changes. : No urinary frequency, dysuria. MS: No pain or joint complaints. PAST MEDICAL HISTORY PAST MEDICAL HISTORY Diagnosis Date Diabetes (HCC) Eczema Mixed hyperlipidemia Hyperlipidemia Obstructive sleep apnea Snoring Unspecified essential hypertension Essential hypertension PHYSICAL EXAMINATION BP 143/67 Pulse 101 Ht 162.6 cm (5' 4 ) Wt 131.5 kg (290 lb) SpO2 94% BMI 49.78 kg/m Repeat BP: 126/70 General: Alert, well developed, well nourished, no distress, pleasant and cooperative. Obese. Heart: Regular rate and rhythm. Normal S1 and S2. No murmurs, rubs, or gallops. Lungs: Clear to auscultation bilaterally. No respiratory distress. No wheezes, rales, or rhonchi. Abdomen: Soft, non-tender, no distention. Extremities: Feet/ankles without edema, posterior tibial pulses full and symmetrical. Data Reviewed 12/09/21 US abd- IMPRESSION: Enlarged fatty liver. Focal fatty sparing. Small mobile gallstones. Common duct is normal in caliber. Otherwise normal right upper quadrant ultrasound Assessment/Plan (G47.33, Z99.89) Obstructive sleep apnea on CPAP (primary encounter diagnosis) Comment: going to have sleep study this month Plan: continue with current plan (E11.9) Controlled type 2 diabetes mellitus without complication, without long-term current use of insulin (HCC) (E66.01) Obesity, Class III, BMI 40-49.9 (morbid obesity) (HCC) Comment: due for labs Plan: BASIC METABOLIC PNL, LIPID PANEL BASIC, HGB A1C, ALBUMIN/CREAT RATIO RND UR (Z23) Pneumococcal vaccination administered at current visit Comment: Due for Pneumovax. Plan: PNEUMOCOCCAL VACCINE (PREVNAR 20) (Z23) Need for shingles vaccine Comment: Due for Shingrix series Plan: ZOSTER VACC RECOMBINANT,IM Requested Prescriptions No prescriptions requested or ordered in this encounter RTO: 6 months Scribe Attestation: By signing my name below, I, Serina Mathews, attest that this documentation has been prepared under the direction and in the presence of Freddy Serrano M.D. Electronically Signed: Cruzito Dalal. December 11, 2021 1:46 PM Provider Attestation: I, Margi Serrano MD, personally performed the services described in this documentation. All medical record entries made by the scribe were at my direction and in my presence. I have reviewed the chart and discharge instructions (if applicable) and agree that the record reflects my personal performance and is accurate and complete. Electronically Signed: Margi Serrano MD December 12, 2021 3:32 PM documented in this encounter [facility] 12-06-2021 Miscellaneous Notes Pharmacy requesting the following refill. Requested Prescriptions Pending Prescriptions Disp Refills ursodiol (ACTIGALL) 300 mg capsule [Pharmacy Med Name: URSODIOL 300 MG CAPSULE] 540 capsule 2 Sig: take 2 capsules by mouth three times a day Patient's Last Office Visit: 07/05/2021 Patient Phone numbers: [phone] (home) Request is for script(s) to be escript to pharmacy. Kaia Pang [employer] Tender documented in this encounter [facility] 12-06-2021 Miscellaneous Notes Reached patient on phone. She does not recall having had a sleep study done since 2012. States current machine is an auto-pap with humidity reservoir that she does not use because she doesn't like it. Nasal mask. Patient states that she uses her machine every night and tolerates well. The machine is greater than 5 years old and there is a warning light on motor life exceeded . Called [facility] at [phone]. They state need for OV notes within last 6 months explaining need for CPAP and her diagnosis, and a repeat sleep study. Called patient and scheduled to see Dr. Serrano on ThuDecember 11 to discuss need for new CPAP and for sleep study order to be placed. Attempted to call patient no answer left her message to call back. Please call her. Pt contacted us about a replacement machine. Most recent Sleep study is 2012. Is there a more recent study we're not seeing? No recent visit to review her CPAP. She will likely need a repeat titration and a visit to address the sleep apnea before her supplier will be able to submit to insurance for a new machine. Encounter Diagnosis ICD-10-CM 1. SIA (obstructive sleep apnea) G47.33 PAP TITRATION PSG (CPAP, BIPAP, ASV) CANCELED: PAP TITRATION PSG (CPAP, BIPAP, ASV) Order placed for CPAP titration. Please assist with scheduleing. Once it's done , follow up appt here. Margi Serrano MD [facility] stated they received the CPAP order, but they need notes; pressure settings and psg diagnosis Please fax to [phone]. . documented in this encounter [facility] 11-25-2021 Miscellaneous Notes Pharmacy faxed requesting the following refill. Pending Prescriptions Disp Refills DOXEPIN 10 MG CAPSULE 90 capsule 1 Sig: take 1 capsule by mouth at bedtime MIESHA: Yes Patient's Last Office Visit: 07/05/2021 Patient Phone numbers: [phone] (home) Request is for script(s) to be escript to pharmacy. Anitha Davison Asst documented in this encounter [facility] 11-19-2021 Miscellaneous Notes Order faxed. documented in this encounter [facility] 11-15-2021 Miscellaneous Notes Patient is scheduled for US 12/09/2021 Anitha Davison Asst [employer] message sent Anitha Davison Asst Reminder letter mailed to patient that she is due for US 11/2021 Anitha Davison Asst ----- Message from Anitha Davison Asst sent at 06/13/2021 2:10 PM EST ----- Regardinm US - due 11/2021 Next ultrasound for November 2021 has been ordered. documented in this encounter [facility] 09-30-2021 Miscellaneous Notes Pharmacy verified in [place] Patient has been identified by name and date of : Yes Patient aware RX will be sent to pharmacy. No need to notify patient. Pharmacy phones for refill(s): Pending Prescriptions Disp Refills LISINOPRIL 10 MG-HYDROCHLOROTHIAZIDE 12.5 MG TABLET 90 tablet 0 Sig: take 1 tablet by mouth once daily MIESHA: Yes METFORMIN 500 MG TABLET 360 tablet 0 Sig: take 2 tablets by mouth twice a day with meals MIESHA: Yes ATORVASTATIN 20 MG TABLET 90 tablet 0 Sig: take 1 tablet by mouth once daily MIESHA: Yes Date of last office visit : 07/03/2021 Date of next office visit : 01/03/2022 Last 2 Encounter Wt Readings: Date: Wt: 07/05/2021 128.8 kg (284 lb) 07/03/2021 132.5 kg (292 lb) Diabetes: Hemoglobin A1C (%) Date Value 02/01/2021 6.4 Cholesterol: Triglyceride (mg/dL) Date Value 02/01/2021 147 HDL Cholesterol (mg/dL) Date Value 02/01/2021 28 LDL Cholesterol (mg/dL) Date Value 02/01/2021 68 ALT (U/L) Date Value 11/12/2020 26 Non HDL Cholesterol (mg/dL) Date Value 02/01/2021 97 Blood Pressure: BUN (mg/dL) Date Value 02/01/2021 9 Creatinine (mg/dL) Date Value 02/01/2021 0.64 Sodium (mmol/L) Date Value 02/01/2021 140 Potassium (mmol/L) Date Value 02/01/2021 4.1 Last 1 Encounter BP Readings: Date: BP: 07/05/2021 141/86 Please advise. Carine Cleainng documented in this encounter [facility] 06-07-2021 Note HNO ID: [id number] Author: TESS Gibson Service: Radiology Author Type: Technologist Type: Progress Notes Filed: 06/07/2021 9:22 AM Note Text: Radiology Service Progress Note PATIENT NAME: Valentín HANSENN: [id number] DATE OF SERVICE: June 07, 2021 TIME: 9:22 AM PATIENT IDENTITY VERIFICATION COMPLETED USING TWO (2) IDENTIFIERS: Name and Date of confirmed by patient verbally and Name and Date of confirmed by identification band. FALL SCREENING: Has the patient had 2 falls in the last year or 1 fall with injury or currently using an Ambulatory Assistive Device (Walker, Cane, Wheelchair, Crutches, etc.)? No PATIENT GENDER DATA: Female. status: : No status: NO. PATIENT RELEVANT IMPLANT DATA REVIEWED: Not Applicable RADIOLOGY DEPARTMENT: Ultrasound PERIPHERAL IV DATA: Not applicable SIGNED BY: TESS Gibson June 07, 2021 9:22 AM [facility] 11-22-2020 Note HNO ID: [id number] Author: Serina Galicia RN Service: Radiology Author Type: Registered Nurse Type: Patient Education Filed: 11/22/2020 10:45 AM Note Text: Written education for sedation and biopsy placed in patient's chart. [facility] documented as of this encounter (statuses as of 09/30/2021) [facility] History of Past illness Narrative* Problem Noted Date Resolved Date Pre-diabetes 01/30/2010 12/24/2011 documented as of this encounter (statuses as of 11/15/2021) [address] History of Past illness Narrative* Problem Noted Date Resolved Date Pre-diabetes 01/30/2010 12/24/2011 documented as of this encounter (statuses as of 11/19/2021) [address] History of Past illness Narrative* Problem Noted Date Resolved Date Pre-diabetes 01/30/2010 12/24/2011 documented as of this encounter (statuses as of 11/25/2021) [address] History of Past illness Narrative* Problem Noted Date Resolved Date Pre-diabetes 01/30/2010 12/24/2011 documented as of this encounter (statuses as of 12/06/2021) [facility] History of Past illness Narrative* Problem Noted Date Resolved Date Pre-diabetes 01/30/2010 12/24/2011 documented as of this encounter (statuses as of 12/10/2021) [address] History of Past illness Narrative* Problem Noted Date Resolved Date Pre-diabetes 01/30/2010 12/24/2011 documented as of this encounter (statuses as of 12/12/2021) [address] History of Past illness Narrative* Problem Noted Date Resolved Date Pre-diabetes 01/30/2010 12/24/2011 documented as of this encounter (statuses as of 12/17/2021) [address] History of Past illness Narrative* Problem Noted Date Resolved Date Pre-diabetes 01/30/2010 12/24/2011 documented as of this encounter (statuses as of 12/31/2021) [facility] History of Past illness Narrative* Problem Noted Date Resolved Date Pre-diabetes 01/30/2010 12/24/2011 documented as of this encounter (statuses as of 01/02/2022) [facility] History of Past illness Narrative* Problem Noted Date Resolved Date Pre-diabetes 01/30/2010 12/24/2011 documented as of this encounter (statuses as of 01/15/2022) [address] History of Past illness Narrative* Problem Noted Date Resolved Date Pre-diabetes 01/30/2010 12/24/2011 documented as of this encounter (statuses as of 01/20/2022) [address] History of Past illness Narrative* Problem Noted Date Resolved Date Pre-diabetes 01/30/2010 12/24/2011 documented as of this encounter (statuses as of 02/07/2022) [address] History of Past illness Narrative* Problem Noted Date Resolved Date Pre-diabetes 01/30/2010 12/24/2011 documented as of this encounter (statuses as of 03/31/2022) [address] History of Past illness Narrative* Problem Noted Date Resolved Date Pre-diabetes 01/30/2010 12/24/2011 documented as of this encounter (statuses as of 04/09/2022) [address] History of Past illness Narrative* Problem Noted Date Resolved Date Pre-diabetes 01/30/2010 12/24/2011 documented as of this encounter (statuses as of 05/02/2022) [address] History of Past illness Narrative* Problem Noted Date Resolved Date Pre-diabetes 01/30/2010 12/24/2011 documented as of this encounter (statuses as of 05/02/2022) [address] History of Past illness Narrative* Problem Noted Date Resolved Date Pre-diabetes 01/30/2010 12/24/2011 documented as of this encounter (statuses as of 05/03/2022) [address]06[address]2010 History of Past illness Narrative* Problem Noted Date Resolved Date Pre-diabetes 01/30/2010 12/24/2011 documented as of this encounter (statuses as of 05/07/2022) [address]06-2010 History of Past illness Narrative* Problem Noted Date Resolved Date Pre-diabetes 01/30/2010 12/24/2011 documented as of this encounter (statuses as of 05/08/2022) [address]-2010 History of Past illness Narrative* Problem Noted Date Resolved Date Pre-diabetes 01/30/2010 12/24/2011 documented as of this encounter (statuses as of 05/13/2022) [address]06-2010 History of Past illness Narrative* Problem Noted Date Resolved Date Pre-diabetes 01/30/2010 12/24/2011 documented as of this encounter (statuses as of 05/22/2022) [facility]10-06-2010 History of Past illness Narrative* Problem Noted Date Resolved Date Pre-diabetes 01/30/2010 12/24/2011 documented as of this encounter (statuses as of 05/26/2022) [address]2010 History of Past illness Narrative* Problem Noted Date Resolved Date Pre-diabetes 01/30/2010 12/24/2011 documented as of this encounter (statuses as of 05/29/2022) [address]2010 History of Past illness Narrative* Problem Noted Date Resolved Date Pre-diabetes 01/30/2010 12/24/2011 documented as of this encounter (statuses as of 06/02/2022) [address] History of Past illness Narrative* Problem Noted Date Resolved Date Pre-diabetes 01/30/2010 12/24/2011 documented as of this encounter (statuses as of 06/10/2022) [address]2010 History of Past illness Narrative* Problem Noted Date Resolved Date Pre-diabetes 01/30/2010 12/24/2011 documented as of this encounter (statuses as of 06/16/2022) [address]06[address]2010 History of Past illness Narrative* Problem Noted Date Resolved Date Pre-diabetes 01/30/2010 12/24/2011 documented as of this encounter (statuses as of 06/18/2022) [address]06[address]2010 History of Past illness Narrative* Problem Noted Date Resolved Date Pre-diabetes 01/30/2010 12/24/2011 documented as of this encounter (statuses as of 06/26/2022) [address]2010 History of Past illness Narrative* Problem Noted Date Resolved Date Pre-diabetes 01/30/2010 12/24/2011 documented as of this encounter (statuses as of 06/28/2022) [address] History of Past illness Narrative* Problem Noted Date Resolved Date Pre-diabetes 01/30/2010 12/24/2011 documented as of this encounter (statuses as of 06/30/2022) [address]2010 History of Past illness Narrative* Problem Noted Date Resolved Date Pre-diabetes 01/30/2010 12/24/2011 documented as of this encounter (statuses as of 07/01/2022) [address]2010 History of Past illness Narrative* Problem Noted Date Resolved Date Pre-diabetes 01/30/2010 12/24/2011 documented as of this encounter (statuses as of 07/10/2022) [address]2010 History of Past illness Narrative* Problem Noted Date Resolved Date Pre-diabetes 01/30/2010 12/24/2011 documented as of this encounter (statuses as of 07/12/2022) [address]2010 History of Past illness Narrative* Problem Noted Date Resolved Date Pre-diabetes 01/30/2010 12/24/2011 documented as of this encounter (statuses as of 07/17/2022) [address] History of Past illness Narrative* Problem Noted Date Resolved Date Pre-diabetes 01/30/2010 12/24/2011 documented as of this encounter (statuses as of 07/21/2022) [place] [address]-06-2010 History of Past illness Narrative* Problem Noted Date Resolved Date Pre-diabetes 01/30/2010 12/24/2011 documented as of this encounter (statuses as of 07/22/2022) [address] History of Past illness Narrative* Problem Noted Date Resolved Date Pre-diabetes 01/30/2010 12/24/2011 documented as of this encounter (statuses as of 07/23/2022) [address]2010 History of Past illness Narrative* Problem Noted Date Resolved Date Pre-diabetes 01/30/2010 12/24/2011 documented as of this encounter (statuses as of 08/01/2022) [address] History of Past illness Narrative* Problem Noted Date Resolved Date Pre-diabetes 01/30/2010 12/24/2011 documented as of this encounter (statuses as of 08/06/2022) [address] History of Past illness Narrative* Problem Noted Date Resolved Date Pre-diabetes 01/30/2010 12/24/2011 documented as of this encounter (statuses as of 08/22/2022) [address] History of Past illness Narrative* Problem Noted Date Resolved Date Pre-diabetes 01/30/2010 12/24/2011 documented as of this encounter (statuses as of 09/08/2022) [address]2010 History of Past illness Narrative* Problem Noted Date Diagnosed Date Resolved Date Pre-diabetes 01/30/2010 12/24/2011 documented as of this encounter (statuses as of 11/03/2022) [address]2010 History of Past illness Narrative* Problem Noted Date Diagnosed Date Resolved Date Pre-diabetes 01/30/2010 12/24/2011 documented as of this encounter (statuses as of 11/24/2022) [address] History of Past illness Narrative* Problem Noted Date Diagnosed Date Resolved Date Pre-diabetes 01/30/2010 12/24/2011 documented as of this encounter (statuses as of 11/24/2022) [address]2010 History of Past illness Narrative* Problem Noted Date Diagnosed Date Resolved Date Pre-diabetes 01/30/2010 12/24/2011 documented as of this encounter (statuses as of 11/27/2022) [address] History of Past illness Narrative* Problem Noted Date Diagnosed Date Resolved Date Pre-diabetes 01/30/2010 12/24/2011 documented as of this encounter (statuses as of 12/30/2022) [address] History of Past illness Narrative* Problem Noted Date Diagnosed Date Resolved Date Pre-diabetes 01/30/2010 12/24/2011 documented as of this encounter (statuses as of 01/05/2023) [address] History of Past illness Narrative* Problem Noted Date Diagnosed Date Resolved Date Pre-diabetes 01/30/2010 12/24/2011 documented as of this encounter (statuses as of 01/07/2023) [address] History of Past illness Narrative* Problem Noted Date Diagnosed Date Resolved Date Pre-diabetes 01/30/2010 12/24/2011 documented as of this encounter (statuses as of 01/10/2023) [facility]10-06-2010 History of Past illness Narrative* Problem Noted Date Diagnosed Date Resolved Date Pre-diabetes 01/30/2010 12/24/2011 documented as of this encounter (statuses as of 02/10/2023) [facility]-2010 History of Past illness Narrative* Problem Noted Date Diagnosed Date Resolved Date Pre-diabetes 01/30/2010 12/24/2011 documented as of this encounter (statuses as of 02/23/2023) [facility]-2010 History of Past illness Narrative* Problem Noted Date Diagnosed Date Resolved Date Pre-diabetes 01/30/2010 12/24/2011 documented as of this encounter (statuses as of 03/03/2023) [facility]2010 History of Past illness Narrative* Problem Noted Date Diagnosed Date Resolved Date Pre-diabetes 01/30/2010 12/24/2011 documented as of this encounter (statuses as of 03/13/2023) [facility]2010 History of Past illness Narrative* Problem Noted Date Diagnosed Date Resolved Date Pre-diabetes 01/30/2010 12/24/2011 documented as of this encounter (statuses as of 03/13/2023) [facility]2010 History of Past illness Narrative* Problem Noted Date Diagnosed Date Resolved Date Pre-diabetes 01/30/2010 12/24/2011 documented as of this encounter (statuses as of 04/03/2023) [facility]2010 History of Past illness Narrative* Problem Noted Date Diagnosed Date Resolved Date Pre-diabetes 01/30/2010 12/24/2011 documented as of this encounter (statuses as of 04/06/2023) [facility]2010 History of Past illness Narrative* Problem Noted Date Diagnosed Date Resolved Date Pre-diabetes 01/30/2010 12/24/2011 documented as of this encounter (statuses as of 04/07/2023) [facility]2010 History of Past illness Narrative* Problem Noted Date Diagnosed Date Resolved Date Pre-diabetes 01/30/2010 12/24/2011 documented as of this encounter (statuses as of 04/11/2023) [facility]2010 History of Past illness Narrative* Problem Noted Date Diagnosed Date Resolved Date Pre-diabetes 01/30/2010 12/24/2011 documented as of this encounter (statuses as of 05/18/2023) [address] History of Past illness Narrative* Problem Noted Date Diagnosed Date Resolved Date Pre-diabetes 01/30/2010 12/24/2011 documented as of this encounter (statuses as of 06/03/2023) [facility] Diagnosis Essential hypertension Unspecified essential hypertension Controlled type 2 diabetes mellitus without complication, without long-term current use of insulin ([facility]) Mixed hyperlipidemia [facility] Diagnosis Obstructive sleep apnea on CPAP- Primary Obstructive sleep apnea (adult) (pediatric) [facility] Diagnosis SIA (obstructive sleep apnea)- Primary Obstructive sleep apnea (adult) (pediatric) [facility] Diagnosis Obstructive sleep apnea on CPAP- Primary Obstructive sleep apnea (adult) (pediatric) Controlled type 2 diabetes mellitus without complication, without long-term current use of insulin ([facility]) Obesity, Class III, BMI 40-49.9 (morbid obesity) ([facility]) Morbid obesity Pneumococcal vaccination administered at current visit Need for shingles vaccine Need for prophylactic vaccination and inoculation against other viral diseases [facility] Diagnosis Essential hypertension Unspecified essential hypertension Controlled type 2 diabetes mellitus without complication, without long-term current use of insulin ([facility]) Mixed hyperlipidemia [facility] Diagnosis Encounter for immunization- Primary Need for other specified prophylactic vaccination against single bacterial disease Obstructive sleep apnea on CPAP Obstructive sleep apnea (adult) (pediatric) [facility]* Diagnosis Diabetes mellitus type 2, controlled, without complications (HCC) Type II or unspecified type diabetes mellitus without mention of complication, not stated as uncontrolled Mixed hyperlipidemia documented in this encounter [facility] note* Diagnosis Essential hypertension Unspecified essential hypertension Mixed hyperlipidemia documented in this encounter [facility] note* Diagnosis Mixed hyperlipidemia documented in this encounter [facility] note* Diagnosis Pain of left heel- Primary Pain in limb documented in this encounter [facility] note* Diagnosis Tendonitis, Achilles, left- Primary Achilles bursitis or tendinitis documented in this encounter [facility] note* Diagnosis Tendonitis, Achilles, left- Primary Achilles bursitis or tendinitis documented in this encounter [facility] note* Diagnosis Tendonitis, Achilles, left- Primary Achilles bursitis or tendinitis documented in this encounter [facility] note* Diagnosis Tendonitis, Achilles, left- Primary Achilles bursitis or tendinitis documented in this encounter [facility] note* Diagnosis Tendonitis, Achilles, left- Primary Achilles bursitis or tendinitis documented in this encounter [facility] note* Diagnosis Tendonitis, Achilles, left- Primary Achilles bursitis or tendinitis documented in this encounter [facility] note* Diagnosis Encounter for screening mammogram for breast cancer documented in this encounter [facility] note* Diagnosis Tachycardia- Primary Tachycardia, unspecified Borderline low oxygen saturation level Abnormal arterial blood gases SOB (shortness of breath) Shortness of breath documented in this encounter [facility] note* Diagnosis Essential hypertension Unspecified essential hypertension Mixed hyperlipidemia documented in this encounter [facility] note* Diagnosis Tendonitis, Achilles, left- Primary Achilles bursitis or tendinitis documented in this encounter [facility] note* Diagnosis Primary biliary cholangitis (HCC) documented in this encounter [facility] note* Diagnosis Controlled type 2 diabetes mellitus without complication, without long-term current use of insulin (HCC)- Primary Essential hypertension Unspecified essential hypertension Obesity, Class III, BMI >= 40 (morbid obesity) E66.01 Morbid obesity History of COVID-19 Chronic bilateral low back pain with left-sided sciatica documented in this encounter [facility] note* Diagnosis Mixed hyperlipidemia Essential hypertension Unspecified essential hypertension [facility] Diagnosis Hepatic fibrosis Cirrhosis of liver without mention of alcohol BELLE (nonalcoholic steatohepatitis) Other chronic nonalcoholic liver disease [facility] this [facility] Diagnosis Controlled type 2 diabetes mellitus without complication, without long-term current use of insulin (HCC)- Primary Essential hypertension Unspecified essential hypertension Mixed hyperlipidemia documented in this encounter [facility] note* Diagnosis Mixed hyperlipidemia documented in this encounter [facility] note* Diagnosis Essential hypertension Unspecified essential hypertension documented in this encounter [facility] note* Diagnosis Encounter for screening mammogram for breast cancer documented in this encounter [facility] for referral (narrative)* Diagnostic Procedure Only (Routine) - Pending Review Specialty Diagnoses / Procedures Referred By Contac t Referred To Contact [facility] Diagnoses Encounter for screening mammogram for breast cancer Procedures SURESH SCREENING SCREENING MAMMOGRAPHY BI 2-VIEW BREAST INC CAD Margi Serrano MD [address] [place] [address] [place] [address] Br Imaging [facility] [place] [address] Referral ID Status Reason Start Date Expiration Date Visits Requested Visits Authorized [id number] Pending Review Auto-Generat ed Referral 06/11/2022 07/11/2023 1 1 [facility] for referral (narrative)* Diagnostic Procedure Only (Routine) - Closed Specialty Diagnoses / Procedures Referred By Contac t Referred To Contact US IMAGING Diagnoses Primary biliary cholangitis (HCC) Procedures US ABD RT UPPER QUADRANT US ABDOMINAL REAL TIME W/IMAGE LIMITED Luis De Leon MD [address] [place] [address] Us Imaging Referral ID Status Reason Start Date Expiration Date V isits Requested Visits Authorized [id number] Closed Auto-Generate d Referral 06/14/2022 01/11/2023 1 1 [facility] for referral (narrative)* Diagnostic Procedure Only (Routine) - Closed Specialty Diagnoses / Procedures Referred By Contac t Referred To Contact US IMAGING Diagnoses Hepatic fibrosis BELLE (nonalcoholic steatohepatitis) Procedures US ABD RIGHT UPPER QUADRANT US ABDOMINAL REAL TIME W/IMAGE LIMITED Luis De Leon MD [address] [place] [address] [place] [id number] Referral ID Status Reason Start Date Expiration Date V isits Requested Visits Authorized [id number] Closed Auto-Generate d Referral 12/26/2022 08/19/2023 1 1 [facility] for referral (narrative)* Diagnostic Procedure Only (Routine) - Pending Review Specialty Diagnoses / Procedures Referred By Contac t Referred To Contact [facility] IMAGING Diagnoses Encounter for screening mammogram for breast cancer Procedures SURESH SCREENING SCREENING MAMMOGRAPHY BI 2-VIEW BREAST INC CAD Margi Serrano MD [address] [place] [address] Br Imaging [facility] [place] [address] Referral ID Status Reason Start Date Expiration Date Visits Requested Visits Authorized [id number] Pending Review Auto-Generat ed Referral 05/13/2023 06/11/2024 1 1 [facility] for visit Narrative* Diagnostic Procedure Only (Routine) - Closed Specialty Diagnoses / Procedures Referred By Contac t Referred To Contact US IMAGING Diagnoses Primary biliary cholangitis (HCC) Procedures US ABD RT UPPER QUADRANT US ABDOMINAL REAL TIME W/IMAGE LIMITED Luis De Leon MD [address] [place] [address] Us Imaging Referral ID Status Reason Start Date Expiration Date V isits Requested Visits Authorized [id number] Closed Auto-Generate d Referral 06/14/2022 01/11/2023 1 1 [facility] for visit Narrative* Diagnostic Procedure Only (Routine) - Closed Specialty Diagnoses / Procedures Referred By Contac t Referred To Contact US IMAGING Diagnoses Hepatic fibrosis BELLE (nonalcoholic steatohepatitis) Procedures US ABD RIGHT UPPER QUADRANT US ABDOMINAL REAL TIME W/IMAGE LIMITED Luis De Leon MD [address] [place] [address] [facility] [address] Referral ID Status Reason Start Date Expiration Date V isits Requested Visits Authorized [id number] Closed Auto-Generate d Referral 12/26/2022 08/19/2023 1 1 [facility] Summary Purpose Family History No Family History Records FoundNo Family History Records FoundNo Family History Records FoundNo Family History Records Found Advance Directives Documents on File Type Date Recorded Patient Senior Regulatory Affairs Specialist Expl anation Advance Directive(s) 11/08/2020 10:09 AM Reason for Referral Specialty Diagnoses / Procedures Referred By Contac t Referred To Contact Podiatry Diagnoses Pain of left heel Procedures CONSULT TO PODIATRY OFFICE/OUTPATIENT COUNT INCLUDES THE [facility] MDM 60-74 MINUTES Roni Ge MD [address] [place] [address] Referral ID Status Reason Start Date Expiration Date Visits Requested Visits Authorized [id number] Authorized PCP Requested Referral 04/30/2022 04/30/2023 1 1 Specialty Diagnoses / Procedures Referred By Contac t Referred To Contact XR IMAGING Diagnoses Pain of left heel Procedures XR CALCANEUS 2V AXIAL/LAT LEFT RADEX CALCANEUS MINIMUM 2 VIEWS Roni Ge MD [address] [place] [address] Xr Imaging Referral ID Status Reason Start Date Expiration Date V isits Requested Visits Authorized [id number] Closed Auto-Generate d Referral 04/30/2022 05/30/2023 1 1 Specialty Diagnoses / Procedures Referred By Contac t Referred To Contact [facility] Diagnoses Tendonitis, Achilles, left Procedures PT REHAB FOLLOW UP ORDER THERAPEUTIC EXERCISES RE, EA 15 MIN. Shahriar Che, PT [address] [place] [address] [facility] [address] [place] [address] Referral ID Status Reason Start Date Expiration Date V isits Requested Visits Authorized [id number] Closed PCP Requested Referral Auto-Generated Referral 05/08/2022 08/06/2022 1 1 Referral ID Status Reason Start Date Expiration Date Visits Requested Visits Authorized [id number] Pending Review PCP Requested Referral Auto-Generate d Referral 06/10/2022 09/08/2022 1 1 Referral ID Status Reason Start Date Expiration Date Visits Requested Visits Authorized [id number] Pending Review PCP Requested Referral Auto-Generate d Referral 07/10/2022 10/08/2022 1 1 Specialty Diagnoses / Procedures Referred By Contac t Referred To Contact Diagnoses Obesity, Class III, BMI 40-49.9 (morbid obesity) (HCC) Procedures CONSULT [facility] OFFICE/OUTPATIENT NEW HIGH MDM 60-74 MINUTES Luis Velasquez APRN.[employer] COORDINATOR [address] [place] [address] Referral ID Status Reason Start Date Expiration Date Visits Requested Visits Authorized [id number] Authorized PCP Requested Referral 07/23/2022 07/23/2023 1 1 Additional Source Comments INFORMATION SOURCE (unrecogn ized section and content) DATE CREATED AUTHOR AUTHOR'S ORGANIZ ATION 01/25/2022 [facility] DATE CREATED AUTHOR AUTHOR'S ORGANIZ ATION 01/11/2023 [facility] DATE CREATED AUTHOR AUTHOR'S ORGANIZ ATION 05/18/2023 [facility] Source Comments (unrecognize d section and content) In the event this informatio n is protected by the Federal Confidentiality of Alcohol and Drug Abuse Patient Records regulations: The Federal rules restrict any use of the information to criminally investigate or prosecute any alcohol or drug abuse patient.[facility] the event this information is protected by the Federal Confidentiality of Alcohol and Drug Abuse Patient Records regulations: The Federal rules restrict any use of the information to criminally investigate or prosecute any alcohol or drug abuse patient.[facility] the event this information is protected by the Federal Confidentiality of Alcohol and Drug Abuse Patient Records regulations: The Federal rules restrict any use of the information to criminally investigate or prosecute any alcohol or drug abuse patient.[facility] the event this information is protected by the Federal Confidentiality of Alcohol and Drug Abuse Patient Records regulations: The Federal rules restrict any use of the information to criminally investigate or prosecute any alcohol or drug abuse patient.[facility] the event this information is protected by the Federal Confidentiality of Alcohol and Drug Abuse Patient Records regulations: The Federal rules restrict any use of the information to criminally investigate or prosecute any alcohol or drug abuse patient.[facility] the event this information is protected by the Federal Confidentiality of Alcohol and Drug Abuse Patient Records regulations: The Federal rules restrict any use of the information to criminally investigate or prosecute any alcohol or drug abuse patient.[facility] the event this information is protected by the Federal Confidentiality of Alcohol and Drug Abuse Patient Records regulations: The Federal rules restrict any use of the information to criminally investigate or prosecute any alcohol or drug abuse patient.[facility] the event this information is protected by the Federal Confidentiality of Alcohol and Drug Abuse Patient Records regulations: The Federal rules restrict any use of the information to criminally investigate or prosecute any alcohol or drug abuse patient.[facility] the event this information is protected by the Federal Confidentiality of Alcohol and Drug Abuse Patient Records regulations: The Federal rules restrict any use of the information to criminally investigate or prosecute any alcohol or drug abuse patient.[facility] the event this information is protected by the Federal Confidentiality of Alcohol and Drug Abuse Patient Records regulations: The Federal rules restrict any use of the information to criminally investigate or prosecute any alcohol or drug abuse patient.[facility] the event this information is protected by the Federal Confidentiality of Alcohol and Drug Abuse Patient Records regulations: The Federal rules restrict any use of the information to criminally investigate or prosecute any alcohol or drug abuse patient.[facility] HospitalIn the event this information is protected by the Federal Confidentiality of Alcohol and Drug Abuse Patient Records regulations: The Federal rules restrict any use of the information to criminally investigate or prosecute any alcohol or drug abuse patient.[facility] HospitalIn the event this information is protected by the Federal Confidentiality of Alcohol and Drug Abuse Patient Records regulations: The Federal rules restrict any use of the information to criminally investigate or prosecute any alcohol or drug abuse patient.[facility] HospitalIn the event this information is protected by the Federal Confidentiality of Alcohol and Drug Abuse Patient Records regulations: The Federal rules restrict any use of the information to criminally investigate or prosecute any alcohol or drug abuse patient.[facility] HospitalIn the event this information is protected by the Federal Confidentiality of Alcohol and Drug Abuse Patient Records regulations: The Federal rules restrict any use of the information to criminally investigate or prosecute any alcohol or drug abuse patient.[facility] HospitalIn the event this information is protected by the Federal Confidentiality of Alcohol and Drug Abuse Patient Records regulations: The Federal rules restrict any use of the information to criminally investigate or prosecute any alcohol or drug abuse patient.[facility] HospitalIn the event this information is protected by the Federal Confidentiality of Alcohol and Drug Abuse Patient Records regulations: The Federal rules restrict any use of the information to criminally investigate or prosecute any alcohol or drug abuse patient.[facility] HospitalIn the event this information is protected by the Federal Confidentiality of Alcohol and Drug Abuse Patient Records regulations: The Federal rules restrict any use of the information to criminally investigate or prosecute any alcohol or drug abuse patient.[facility] HospitalIn the event this information is protected by the Federal Confidentiality of Alcohol and Drug Abuse Patient Records regulations: The Federal rules restrict any use of the information to criminally investigate or prosecute any alcohol or drug abuse patient.[facility] HospitalIn the event this information is protected by the Federal Confidentiality of Alcohol and Drug Abuse Patient Records regulations: The Federal rules restrict any use of the information to criminally investigate or prosecute any alcohol or drug abuse patient.[facility] HospitalIn the event this information is protected by the Federal Confidentiality of Alcohol and Drug Abuse Patient Records regulations: The Federal rules restrict any use of the information to criminally investigate or prosecute any alcohol or drug abuse patient.[facility] HospitalIn the event this information is protected by the Federal Confidentiality of Alcohol and Drug Abuse Patient Records regulations: The Federal rules restrict any use of the information to criminally investigate or prosecute any alcohol or drug abuse patient.[facility] HospitalIn the event this information is protected by the Federal Confidentiality of Alcohol and Drug Abuse Patient Records regulations: The Federal rules restrict any use of the information to criminally investigate or prosecute any alcohol or drug abuse patient.[facility] HospitalIn the event this information is protected by the Federal Confidentiality of Alcohol and Drug Abuse Patient Records regulations: The Federal rules restrict any use of the information to criminally investigate or prosecute any alcohol or drug abuse patient.[facility] HospitalIn the event this information is protected by the Federal Confidentiality of Alcohol and Drug Abuse Patient Records regulations: The Federal rules restrict any use of the information to criminally investigate or prosecute any alcohol or drug abuse patient.[facility] HospitalIn the event this information is protected by the Federal Confidentiality of Alcohol and Drug Abuse Patient Records regulations: The Federal rules restrict any use of the information to criminally investigate or prosecute any alcohol or drug abuse patient.[facility] HospitalIn the event this information is protected by the Federal Confidentiality of Alcohol and Drug Abuse Patient Records regulations: The Federal rules restrict any use of the information to criminally investigate or prosecute any alcohol or drug abuse patient.[facility] HospitalIn the event this information is protected by the Federal Confidentiality of Alcohol and Drug Abuse Patient Records regulations: The Federal rules restrict any use of the information to criminally investigate or prosecute any alcohol or drug abuse patient.[facility] HospitalIn the event this information is protected by the Federal Confidentiality of Alcohol and Drug Abuse Patient Records regulations: The Federal rules restrict any use of the information to criminally investigate or prosecute any alcohol or drug abuse patient.[facility] HospitalIn the event this information is protected by the Federal Confidentiality of Alcohol and Drug Abuse Patient Records regulations: The Federal rules restrict any use of the information to criminally investigate or prosecute any alcohol or drug abuse patient.[facility] HospitalIn the event this information is protected by the Federal Confidentiality of Alcohol and Drug Abuse Patient Records regulations: The Federal rules restrict any use of the information to criminally investigate or prosecute any alcohol or drug abuse patient.[facility] HospitalIn the event this information is protected by the Federal Confidentiality of Alcohol and Drug Abuse Patient Records regulations: The Federal rules restrict any use of the information to criminally investigate or prosecute any alcohol or drug abuse patient.[facility] HospitalIn the event this information is protected by the Federal Confidentiality of Alcohol and Drug Abuse Patient Records regulations: The Federal rules restrict any use of the information to criminally investigate or prosecute any alcohol or drug abuse patient.[facility] HospitalIn the event this information is protected by the Federal Confidentiality of Alcohol and Drug Abuse Patient Records regulations: The Federal rules restrict any use of the information to criminally investigate or prosecute any alcohol or drug abuse patient.[facility] HospitalIn the event this information is protected by the Federal Confidentiality of Alcohol and Drug Abuse Patient Records regulations: The Federal rules restrict any use of the information to criminally investigate or prosecute any alcohol or drug abuse patient.[facility] HospitalIn the event this information is protected by the Federal Confidentiality of Alcohol and Drug Abuse Patient Records regulations: The Federal rules restrict any use of the information to criminally investigate or prosecute any alcohol or drug abuse patient.[facility] HospitalIn the event this information is protected by the Federal Confidentiality of Alcohol and Drug Abuse Patient Records regulations: The Federal rules restrict any use of the information to criminally investigate or prosecute any alcohol or drug abuse patient.[facility] HospitalIn the event this information is protected by the Federal Confidentiality of Alcohol and Drug Abuse Patient Records regulations: The Federal rules restrict any use of the information to criminally investigate or prosecute any alcohol or drug abuse patient.[facility] HospitalIn the event this information is protected by the Federal Confidentiality of Alcohol and Drug Abuse Patient Records regulations: The Federal rules restrict any use of the information to criminally investigate or prosecute any alcohol or drug abuse patient.[facility] HospitalIn the event this information is protected by the Federal Confidentiality of Alcohol and Drug Abuse Patient Records regulations: The Federal rules restrict any use of the information to criminally investigate or prosecute any alcohol or drug abuse patient.[facility] HospitalIn the event this information is protected by the Federal Confidentiality of Alcohol and Drug Abuse Patient Records regulations: The Federal rules restrict any use of the information to criminally investigate or prosecute any alcohol or drug abuse patient.[facility] HospitalIn the event this information is protected by the Federal Confidentiality of Alcohol and Drug Abuse Patient Records regulations: The Federal rules restrict any use of the information to criminally investigate or prosecute any alcohol or drug abuse patient.[facility] HospitalIn the event this information is protected by the Federal Confidentiality of Alcohol and Drug Abuse Patient Records regulations: The Federal rules restrict any use of the information to criminally investigate or prosecute any alcohol or drug abuse patient.[facility] HospitalIn the event this information is protected by the Federal Confidentiality of Alcohol and Drug Abuse Patient Records regulations: The Federal rules restrict any use of the information to criminally investigate or prosecute any alcohol or drug abuse patient.[facility] HospitalIn the event this information is protected by the Federal Confidentiality of Alcohol and Drug Abuse Patient Records regulations: The Federal rules restrict any use of the information to criminally investigate or prosecute any alcohol or drug abuse patient.[facility] HospitalIn the event this information is protected by the Federal Confidentiality of Alcohol and Drug Abuse Patient Records regulations: The Federal rules restrict any use of the information to criminally investigate or prosecute any alcohol or drug abuse patient.[facility] HospitalIn the event this information is protected by the Federal Confidentiality of Alcohol and Drug Abuse Patient Records regulations: The Federal rules restrict any use of the information to criminally investigate or prosecute any alcohol or drug abuse patient.[facility] HospitalIn the event this information is protected by the Federal Confidentiality of Alcohol and Drug Abuse Patient Records regulations: The Federal rules restrict any use of the information to criminally investigate or prosecute any alcohol or drug abuse patient.[facility] HospitalIn the event this information is protected by the Federal Confidentiality of Alcohol and Drug Abuse Patient Records regulations: The Federal rules restrict any use of the information to criminally investigate or prosecute any alcohol or drug abuse patient.[facility] HospitalIn the event this information is protected by the Federal Confidentiality of Alcohol and Drug Abuse Patient Records regulations: The Federal rules restrict any use of the information to criminally investigate or prosecute any alcohol or drug abuse patient.[facility] HospitalIn the event this information is protected by the Federal Confidentiality of Alcohol and Drug Abuse Patient Records regulations: The Federal rules restrict any use of the information to criminally investigate or prosecute any alcohol or drug abuse patient.[facility] HospitalIn the event this information is protected by the Federal Confidentiality of Alcohol and Drug Abuse Patient Records regulations: The Federal rules restrict any use of the information to criminally investigate or prosecute any alcohol or drug abuse patient.[facility] HospitalIn the event this information is protected by the Federal Confidentiality of Alcohol and Drug Abuse Patient Records regulations: The Federal rules restrict any use of the information to criminally investigate or prosecute any alcohol or drug abuse patient.[facility] HospitalIn the event this information is protected by the Federal Confidentiality of Alcohol and Drug Abuse Patient Records regulations: The Federal rules restrict any use of the information to criminally investigate or prosecute any alcohol or drug abuse patient.[facility] HospitalIn the event this information is protected by the Federal Confidentiality of Alcohol and Drug Abuse Patient Records regulations: The Federal rules restrict any use of the information to criminally investigate or prosecute any alcohol or drug abuse patient.[facility] HospitalIn the event this information is protected by the Federal Confidentiality of Alcohol and Drug Abuse Patient Records regulations: The Federal rules restrict any use of the information to criminally investigate or prosecute any alcohol or drug abuse patient.[facility] HospitalIn the event this information is protected by the Federal Confidentiality of Alcohol and Drug Abuse Patient Records regulations: The Federal rules restrict any use of the information to criminally investigate or prosecute any alcohol or drug abuse patient.[facility] HospitalIn the event this information is protected by the Federal Confidentiality of Alcohol and Drug Abuse Patient Records regulations: The Federal rules restrict any use of the information to criminally investigate or prosecute any alcohol or drug abuse patient.[facility] HospitalIn the event this information is protected by the Federal Confidentiality of Alcohol and Drug Abuse Patient Records regulations: The Federal rules restrict any use of the information to criminally investigate or prosecute any alcohol or drug abuse patient.[facility] HospitalIn the event this information is protected by the Federal Confidentiality of Alcohol and Drug Abuse Patient Records regulations: The Federal rules restrict any use of the information to criminally investigate or prosecute any alcohol or drug abuse patient.[facility] HospitalIn the event this information is protected by the Federal Confidentiality of Alcohol and Drug Abuse Patient Records regulations: The Federal rules restrict any use of the information to criminally investigate or prosecute any alcohol or drug abuse patient.[facility] HospitalIn the event this information is protected by the Federal Confidentiality of Alcohol and Drug Abuse Patient Records regulations: The Federal rules restrict any use of the information to criminally investigate or prosecute any alcohol or drug abuse patient.[facility] HospitalIn the event this information is protected by the Federal Confidentiality of Alcohol and Drug Abuse Patient Records regulations: The Federal rules restrict any use of the information to criminally investigate or prosecute any alcohol or drug abuse patient.[facility] Reason for Visit (unrecogniz ed section and content) Reason Comments Appointment due for [place] 11/2021 Reason Comments CPAP order; needs notes and pressure set tings Reason Comments new CPAP order Reason Comments Results Ultrasound Reason Comments Appointment Reason Comments Results Reason Comments Orders [facility] CPAP Reason Comments Pain (foot) Left heel pain x 3 d ays Reason Comments Appointment Scheduled appointmen t with scheduling Reason Comments Received Outside Medical Records [facility] First Visit Summary 05/06/2022 Reason Comments Orders [facility] (CPAP) Reason Comments Received Outside Medical Records [facility] Reason Comments PT Eval Specialty Diagnoses / Procedures Referred By Contac t Referred To Contact Physical Therapy / PHYSICAL THERAPY Diagnoses achilles tendi Procedures NEW RS PT ORTH MSK ExtenFelice MD Thomas, Corey, PT [address] [place] [address] Referral ID Status Reason Start Date Expiration Date V isits Requested Visits Authorized [id number] Outside PCP 05/08/2022 07/07/2022 1 1 Reason Comments Physical Therapy Specialty Diagnoses / Procedures Referred By Contac t Referred To Contact Physical Therapy / PHYSICAL THERAPY Diagnoses achilles tendi Procedures NEW RS PT ORTH MSK ExtenFelice MD Thomas, Corey, PT [address] [place] [address] Specialty Diagnoses / Procedures Referred By Contac t Referred To Contact Physical Therapy / PHYSICAL THERAPY Diagnoses Achilles tendinitis, left leg achilles tendi Procedures PHYSICAL THERAPY EVALUATION HIGH COMPLEX 45 MINS THERAPEUTIC EXERCISES RE, EA 15 MIN. NEW RS PT ORTH MSK Felice Martin MD Thomas, Corey, PT [address] [place] [address] Referral ID Status Reason Start Date Expiration Date V isits Requested Visits Authorized [id number] Authorized 04/27/2022 04/26/2023 20 20 Reason Comments PT Progress Note Specialty Diagnoses / Procedures Referred By Contac t Referred To Contact Physical Therapy / PHYSICAL THERAPY Diagnoses Achilles tendinitis, left leg achilles tendi Procedures PHYSICAL THERAPY EVALUATION HIGH COMPLEX 45 MINS THERAPEUTIC EXERCISES RE, EA 15 MIN. NEW RS PT ORTH MSK ExtenFelice MD Thomas, Corey, PT [address] [place] [address] Reason Comments Appointment Due for [place] and OV 2022 Reason Comments Shortness of Breath Sxs started really b adly three days ago, she is off of her Cymbalta it has been 15 days. Reason Comments Received Outside Medical Records [facility] 06/28 and 06/29 Reason Comments Follow Up Covid heart rate con cerns medcations Reason Comments PT Progress Note Reason Onset Date Comments Refill Request 11/03/2022 Reason Comments 6 month follow up with Nora Reason Comments Orders [facility] CPAP supplie s (2 forms) Reason Comments Research F/U Reason Onset Date Comments Refill Request 02/23/2023 Care Teams (unrecognized sec tion and content) Naval Inspector Relationship Specialty Start Date End Date Margi Serrano MD [address] [place] [address], [place] [address] PCP - General 08/29/09 Naval Inspector Relationship Specialty Start Date End Date Margi Serrano MD [address] [place] [address], [place] [address] PCP - General 08/29/09 Naval Inspector Relationship Specialty Start Date End Date Margi Serrano MD [address] [place] [address], [place] [address] PCP - General 08/29/09 Naval Inspector Relationship Specialty Start Date End Date Margi Serrano MD [address] [place] [address], [place] [address] PCP - General 08/29/09 Naval Inspector Relationship Specialty Start Date End Date Margi Serrano MD [address] [place] [address], [place] [address] PCP - General 08/29/09 Naval Inspector Relationship Specialty Start Date End Date Margi Serrano MD [address] [place] [address], [place] [address] PCP - General 08/29/09 Naval Inspector Relationship Specialty Start Date End Date Margi Serrano MD [address] [place] [address], [place] [address] PCP - General 08/29/09 Naval Inspector Relationship Specialty Start Date End Date Margi Serrano MD [address] [place] [address], [place] [address] PCP - General 08/29/09 Naval Inspector Relationship Specialty Start Date End Date Margi Serrano MD [address] [place] [address], [place] [address] PCP - General 08/29/09 Naval Inspector Relationship Specialty Start Date End Date Margi Serrano MD [address] [place] [address], [place] [address] PCP - General 08/29/09 Naval Inspector Relationship Specialty Start Date End Date Margi Serrano MD [address] [place] [address], [place] [address] PCP - General 08/29/09 Naval Inspector Relationship Specialty Start Date End Date Margi Serrano MD [address] [place] [address], [place] [address] PCP - General 08/29/09 Naval Inspector Relationship Specialty Start Date End Date Margi Serrano MD [address] [place] [address], [place] [address] PCP - General 08/29/09 Naval Inspector Relationship Specialty Start Date End Date Margi Serrano MD [address] [place] [address], [place] [address] PCP - General 08/29/09 Naval Inspector Relationship Specialty Start Date End Date Margi Serrano MD [address] [place] [address], [place] [address] PCP - General 08/29/09 Naval Inspector Relationship Specialty Start Date End Date Margi Serrano MD [address] [place] [address], [place] [address] PCP - General 08/29/09 Naval Inspector Relationship Specialty Start Date End Date Margi Serrano MD [address] [place] [address], [place] [address] PCP - General 08/29/09 Naval Inspector Relationship Specialty Start Date End Date Margi Serrano MD [address] [place] [address] PCP - General 08/29/09 Naval Inspector Relationship Specialty Start Date End Date Margi Serrano MD [address] [place] [address] PCP - General 08/29/09 Naval Inspector Relationship Specialty Start Date End Date Margi Serrano MD [address] [place] [address] PCP - General 08/29/09 Naval Inspector Relationship Specialty Start Date End Date Margi Serrano MD [address] [place] [address] PCP - General 08/29/09 Naval Inspector Relationship Specialty Start Date End Date Margi Serrano MD [address] [place] [address] PCP - General 08/29/09 Naval Inspector Relationship Specialty Start Date End Date Margi Serrano MD [address] [place] [address] PCP - General 08/29/09 Naval Inspector Relationship Specialty Start Date End Date Margi Serrano MD [address] [place] [address] PCP - General 08/29/09 Naval Inspector Relationship Specialty Start Date End Date Margi Serrano MD [address] [place] [address] PCP - General 08/29/09 Naval Inspector Relationship Specialty Start Date End Date Margi Serrano MD [address] [place] [address] PCP - General 08/29/09 Naval Inspector Relationship Specialty Start Date End Date Margi Serrano MD [address] [place] [address] PCP - General 08/29/09 Naval Inspector Relationship Specialty Start Date End Date Margi Serrano MD [address] [place] [address] PCP - General 08/29/09 FOR RECORDS PERTAINING TO PATIENTS WHO ARE OR HAVE BEEN ENROLLED IN A CHEMICAL DEPENDENCY/SUBSTANCEABUSE PROGRAM, SOME INFORMATION MAY BE OMITTED. This clinical summary was aggregated from multiple sources. Caution should be exercised in using it in the provision of clinical care. This summary normalizes information from multiple sources, and as a consequence, information in this document may materially change the coding, format and clinical context of patient data. In addition, data may be omitted in some cases. CLINICAL DECISIONS SHOULD BE BASED ON THE PRIMARY CLINICAL RECORDS. [facility]. provides no warranty or guarantee of the accuracy or completeness of information in this document.
[2023-06-05 18:16] VITALS: BP 106/50; PULSE 114; RESP 20; TEMP 39.2; O2SAT 93
== END 2023-06-05 18:18 | disposition home or self-care (01) ==
LOC: ED 17:38
PROVIDERS: Emergency Provider Emergency Medicine; PCP Family Medicine; Visit Provider Emergency Medicine
DX: J18.9 Pneumonia, unspecified organism (principal); E11.9 Type 2 diabetes mellitus without complications
CPT/HCPCS: 71046; 87631; 99283